=== PATIENT | female | born 1935 | race Caucasian/White ===

== ENCOUNTER 2024-10-10 18:01 | Inpatient (IN) | payer MEDICARE, MEDICAID, SELFPAY ==
--- NOTE | ~2024-10-10 | XR_ITS ---
EXAMINATION: XR CHEST CLINICAL INFORMATION: sob COMPARISON: None available. TECHNIQUE: Frontal view of the chest was obtained. FINDINGS: Pulmonary reticular pattern. No consolidation, pleural effusion or pneumothorax. Cardiomediastinal silhouette demonstrates a tortuous thoracic aorta with calcified plaque. Multilevel thoracic spondylosis. XR/XR chest 1V IMPRESSION: No acute airspace disease. Electronically signed by: Ignacio Rodriguez MD 10/29/2024 12:22 PM EDT
--- NOTE | ~2024-10-10 | US_ITS ---
CLINICAL HISTORY: pain swelling BLE Venous duplex ultrasound bilateral lower extremity Comparison: None Findings: The visualized deep veins are fully compressible with normal Doppler color flow and spectral tracings. No popliteal cyst. IMPRESSION: 1. Negative for bilateral lower extremity deep vein thrombosis. This document has been electronically signed by: Nathaniel Ascencio MD on 10/16/2024 15:08:47
--- NOTE | ~2024-10-10 | US_ITS ---
EXAMINATION: US NONINVASIVE ASSESSMENT OF THE BILATERAL LOWER EXTREMITY WITH ARTERIAL DUPLEX AND ANKLE BRACHIAL INDICES (ABIS) CLINICAL INFORMATION: Bilateral lower extremity pain with ambulation. Swelling, weak pedal pulses. COMPARISON: None available. TECHNIQUE: Duplex Doppler techniques with waveform analysis and measurement of velocities in the common femoral, profunda femoris, superficial femoral, popliteal and tibial arteries were performed. In addition, ankle pulse volume recordings, ankle pressure measurements and ankle brachial indices were obtained of the bilateral lower extremity arterial system. The study was performed only at rest. FINDINGS: NONINVASIVE ASSESSMENT OF THE ARTERIES OF BILATERAL LOWER EXTREMITIES WITH ABIs: RIGHT LEG: Ankle-brachial index: 1.11 Ankle segmental systolic BP: PT: 161 DP: 161 LEFT LEG: Ankle-brachial index: Could not be calculated, as segmental BP of the DP is greater than 200 systolic. ANKLE PVR WAVEFORMS: Bilaterally biphasic. HERMELINDO Reference: 0.9 - 1.4 = normal - no significant arterial disease 0.7 - 0.89 = mild peripheral arterial disease 0.51 - 0.69 = moderate peripheral arterial disease 0.50 = severe peripheral arterial disease There is mild scattered probably calcific atheromatous plaque. RIGHT FEMORAL RUNOFF VELOCITIES: The right common femoral artery measures 103 cm/s and triphasic. The right profunda femoral artery is 33 cm/s and is biphasic. The right proximal superficial femoral artery measures 82 cm/s and biphasic. The right mid superficial femoral artery is 66 cm/s and biphasic. The right distal right superficial femoral artery measures 55 cm/s and is biphasic. The right popliteal velocity measures 71 cm/s and is biphasic. The right posterior tibial artery velocity measures 116 cm/s and is triphasic. LEFT FEMORAL RUNOFF VELOCITIES: The left common femoral artery measures 106 cm/s and biphasic. The left profunda femoral artery is 60 cm/s and is biphasic. The left proximal superficial femoral artery measures 102 cm/s and biphasic. The left mid superficial femoral artery is 73 cm/s and triphasic. The left distal right superficial femoral artery measures 100 cm/s and is triphasic. The left popliteal velocity measures 111 cm/s and is triphasic. The left posterior tibial artery velocity measures 57 cm/s and is biphasic. US/US arterial duplex BI w/ HERMELINDO IMPRESSION: 1. Normal right leg ankle brachial index. The left cannot be calculated as segmental BP of the DP is greater than 200 systolic. 2. Scattered mild calcified atherosclerotic disease is present. There is likely mild arterial vascular disease in the left greater than right lower extremities. 3. Biphasic waveforms in the left RECORDS CUSTODIAN, suggesting possible more proximal disease. 4. No criteria for flow-limiting stenosis identified in either lower extremity. See above for details. Electronically signed by: Sriram Calloway MD 10/18/2024 09:52 AM EDT
--- NOTE | ~2024-10-10 | CT_ITS ---
EXAMINATION: CT ABDOMEN PELVIS WITHOUT IV CONTRAST HISTORY: R flank pain, eval for nephrolithiasis COMPARISON: There are no prior studies for comparison. TECHNIQUE: CT scan of the abdomen and pelvis was performed without contrast using standard departmental protocol. Coronal and sagittal reformatted images were generated and reviewed. Oral contrast material was not administered per department protocol. This CT exam was performed with one or more of the following dose reduction techniques: automated exposure control, adjustment of the mA and/or kV according to patient size, use of iterative reconstruction technique. DLP: 448 mGy-cm FINDINGS: LOWER CHEST: The visualized lung bases are clear. There is no pleural effusion. CARDIOVASCULATURE: The heart is normal in size. There is no pericardial effusion. LIVER: The liver is normal in size and contour. There is a 1.6 cm probable cyst in the left lobe. GALLBLADDER / BILE DUCTS: The gallbladder is unremarkable. There is no intra or extrahepatic biliary ductal dilatation. SPLEEN: The spleen is normal in size and has an unremarkable unenhanced appearance. PANCREAS: The pancreas has an unremarkable unenhanced appearance. ADRENAL GLANDS: Unremarkable. KIDNEYS/RETROPERITONEUM: No renal or ureteral calculi are identified. There is no hydronephrosis or hydroureter. LYMPH NODES: No retroperitoneal lymphadenopathy is identified in the abdomen or pelvis. VASCULATURE: The abdominal aorta demonstrates atherosclerotic calcification, but is normal in caliber. MESENTERY/PERITONEUM: No free fluid. No masses. There is no free intraperitoneal gas. STOMACH: There is a small hiatal hernia. Debris is noted in the remainder of the stomach. SMALL BOWEL: The small bowel is normal in caliber. COLON: The colon is unremarkable. APPENDIX: Normal. URINARY BLADDER/PELVIC ORGANS: The urinary bladder is collapsed, limiting evaluation. The uterus has an unremarkable unenhanced appearance. BONES / SOFT TISSUES: There is a small fat-containing umbilical hernia. There is degenerative disc disease of the spine. CT/CT abdomen pelvis wo IV con IMPRESSION: 1. No evidence of nephrolithiasis or ureteral obstruction. 2. Small hiatal hernia. Small fat-containing umbilical hernia. Electronically signed by: Seun Robles MD 10/21/2024 03:42 PM EDT
--- NOTE | ~2024-10-10 | XR_ITS ---
EXAMINATION: XR KNEE 3 VIEWS RIGHT HISTORY: pain posterior knee COMPARISON: There are no prior studies available for comparison. FINDINGS: Three views of the right knee are submitted. Osseous mineralization is normal. There is no fracture or dislocation. 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 There is a probable 3 mm loose body in the joint space. There is a small joint effusion. XR/XR knee RT 3V IMPRESSION: 1. Small joint effusion. Probable 3 mm loose body. 2. 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 Electronically signed by: Seun Robles MD 10/16/2024 01:12 PM EDT
[2024-10-10 19:16] VITALS: BP 181/91; PULSE 92; RESP 16; TEMP 37.1; O2SAT 93
--- OUTSIDE RECORDS SUMMARY | 2024-10-10 19:46 | XMS_ITS | Data Portability ---
Author Organization [place] [facility], [facility] Address [address] [place] [address] Care Team Providers Care Cellars Supervisor Name Role Phone LATONIA CHAVEZ Referring Provider Assessment Encounter Date Assessment Date Assessment LastModified by Organization Details LastModified Time 04/23/2024 04/23/2024 Discussed B12, will consider supplementing. Increase losartan and RTC in 1 month for BP review. Unclear if she has been taking bumex; she does have bilateral peripheral edema, declines compression stockings/elev ation. Reviewed TTE which was overall normal. atressor Not available 04/23/2024 12:59:02 05/30/2024 05/30/2024 BP remains elevated in clinic today. Unclear if patient taking appropriately, patient appears to be confused if she is taking Losartan, and at what dose. She says is taking HTN medication BID so concern she may only be taking clonidine still . Son will review pills at home to see if patient has been taking losartan and contact clinic. Would like to know if patient taking as prescribed prior to modifying dosing. Recommend pill organizer and son to help if possible to ensure taking appropriately. Follow up in 1 month. Not available 05/30/2024 13:26:42 07/17/2024 07/17/2024 Patient stable. Medications and labs reviewed. She presents with right lower extremity edema, erythema for the past week, treat with cephalexin 500 mg t.i.d. for 14 days. [email or web address] Not available 07/17/2024 15:02:57 08/15/2024 08/15/2024 Patient stable. She presents with bilateral lower extremity erythema. refer to dermatology. She has been treated with cephalexin and doxycycline by urgent care. She developed a rash with doxycyline and was also treated with prednisone 3 days through urgent care. repeat medrol dose pack, increase bumetanide to 2mg daily. Follow up in one month, consider referral to lymphedema clinic. [email or web address] Not available 08/15/2024 15:11:37 09/19/2024 09/19/2024 Patient stable. She was recently in psychiatric rehab for depression, insomnia. She was prescribed trazodone 50 mg and risperidone 1.5 mg at bedtime. A1C is 6.0, LDL elevated 110, cholesterol 185, triglyceride 83, HDL 60. she will follow up next month, repeat labs. [email or web address] Not available 09/19/2024 15:01:21 Plan of Treatment Reminders Order Date Submit Date Provider Last Modified By Organization Details Last Modified Time Details Appointments COMPLETE PHYSICAL EXAM 2024 01:15P Oscar CRUZ MD Not available Not available Not available Lab CMP, serum or plasma 2023 025 [facility], [address] [place] [address], [phone], 08/23/2024 03:02:15 CBC 2023 025 [facility], [address] [place] [address], [id number], 08/23/2024 03:02:15 lipid panel, serum 2023 025 [facility], [address] [place] [address], [phone], 08/23/2024 03:02:16 TSH, serum or plasma 2023 025 [facility], [address] [place] [address], [id number], 08/23/2024 03:02:17 BMP, serum or plasma 2023 024 [facility], [address] [place] [address], [id number], 05/28/2024 02:39:12 Referral dermatolo gist referral - bilateral lower extremity erythema, mild edema, has been treated with abx therapy, patients family prefer she see dermatolo gy 2024 025 BARB Soto MD, [address], [place], [address], 08/15/2024 15:30:34 Procedures None recorded. Surgeries None recorded. Imaging None recorded. Medication Orders trazodone 50 mg tablet 2024 025 [facility] [place] [facility][id number], [address] , [place], [place], [phone], 09/19/2024 15:01:32 risperido ne 1 mg tablet 2024 025 [facility] #[id number], [address] [place] [address], [id number], 09/19/2024 15:01:29 risperido ne 0.5 mg tablet 2024 025 [facility] #[id number], [address] , [place], [place], [phone], 09/19/2024 15:01:30 bumetanid e 2 mg tablet [email or web address] [place] [address] [facility] [place] [facility], [address] , [place], [place], [phone], 09/19/2024 14:53:32 Medrol (Baldo) 4 mg tablets in a dose pack 2024 025 [facility] [place] [facility] #[id number], [address] [place] [address], [id number], 08/15/2024 15:11:39 bumetanid e 1 mg tablet 2023 025 [facility] Not available 08/15/2024 15:12:14 cephalexi n 500 mg capsule 2023 025 SHAHANA Not available 08/15/2024 15:04:43 zolpidem 10 mg tablet 2023 024 SHAHANA Not available 04/23/2024 12:05:40 omeprazol e 40 mg capsule,d elayed release 2023 024 SHAHANA Not available 04/23/2024 12:05:33 clonidine HCl 0.1 mg tablet 2023 024 SHAHANA Not available 04/23/2024 12:05:36 losartan 100 mg tablet 2023 024 Not available 09/19/2024 14:53:39 Patient TargetsNo targets recorded. Patient Instructions Encounter Date Encounter Id Patient Instructions Last Modified By Organization Details Last Modified Time 04/23/2024 [id number] gastroesophageal reflux disease (GERD): care instructions atressor Not available 04/23/2024 12:05:22 high blood press ure: care instructions atressor Not available 04/23/2024 12:05:22 learning about h igh blood pressure atressor Not available 04/23/2024 12:05:22 05/30/2024 [id number] goiter: care instructions Not available 05/30/2024 13:26:43 high blood press ure: care instructions Not available 05/30/2024 13:26:43 learning about h igh blood pressure Not available 05/30/2024 13:26:43 07/17/2024 [id number] insomnia: care instructions [email or web address] Not available 07/17/2024 15:06:33 cellulitis: care instructions [email or web address] Not available 07/17/2024 15:06:33 high blood press ure: care instructions [email or web address] Not available 07/17/2024 15:06:34 learning about h igh blood pressure [email or web address] Not available 07/17/2024 15:06:33 08/15/2024 [id number] leg and ankle ed diana: care instructions [email or web address] Not available 08/15/2024 15:11:32 high blood press ure: care instructions [email or web address] Not available 08/15/2024 15:11:32 learning about h igh blood pressure [email or web address] Not available 08/15/2024 15:11:32 Eczema: Care Instructions [email or web address] Not available 08/15/2024 15:11:32 09/19/2024 [id number] prediabetes: car e instructions [email or web address] Not available 09/19/2024 15:01:23 goiter: care instructions [email or web address] Not available 09/19/2024 15:01:24 insomnia: care instructions [email or web address] Not available 09/19/2024 15:01:24 gastroesophageal reflux disease (GERD): care instructions [email or web address] Not available 09/19/2024 15:01:24 high blood press ure: care instructions [email or web address] Not available 09/19/2024 15:01:24 learning about h igh blood pressure [email or web address] Not available 09/19/2024 15:01:23 Reason for Referral Design Technician Referral for A topic dermatitis bilateral lower extremity erythema, mild edema, has been treated with abx therapy, patients family prefer she see dermatology Referring Physician: Nidia Rosa, Nurse Practitioner- Residential [employer], Encounter Date: 08/15/2024 Results Created Date Observation Date Name Description Value Unit Range Abnormal Flag Note LastModifiedBy Organization Detail LastModifiedTime 03/25/20 24 03/18/2024 , echo ardio gram No observ ation record ed. [facility] [address], [place], [address], 03/25/2024 18:03:34 Result Notes None recorded. Problems Name Problem SNOMED Code Status Onset Date Resolution Date Notes Provider Name and Address Organization Details Recorded Time Mixed hyperlipide cristine 735189034 Active Kalyn Haroon dennis, [place] [facility] 3 13:34:18 Essential hypertensio n 84541663 Completed 01/30/2018 Latonia Chavez MD [address] [place] [address],[facility], [place], [address], [facility] 8 12:21:30 Cough 60867691 Completed 07/20/2017 Latonia Chavez MD [address] [place] [address],[facility], [place], [address], [place] [facility], 7 11:39:37 Gastroesoph ageal reflux disease 178711153 Active [place] [facility] MD, 3 13:34:18 Disorder of thyroid gland 41876800 Completed 07/20/2017 Latonia Chavez MD [address] [place] [address],[facility], [place], [address], [place] [facility], 7 11:39:16 Partial thickness burn of hand 69561598 Completed 07/20/2017 Latonia Chavez MD [address] [place] [address],[facility], [place], [address], [place] [facility] 7 11:39:41 Benign essential hypertensio n 9932398 Active [facility] 3 13:34:18 Insomnia 712467176 Active [place], 3 13:34:18 Shoulder joint pain 927379411 Completed 07/20/2017 Latonia Chavez MD [address] [place] [address],[facility], [place], [address], [place] [facility], 7 11:39:58 Knee pain Completed 07/20/2017 Latonia Chavez MD [address] [place] [address],[facility], [place], [address], [place] [facility] 7 11:39:31 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 526218725 Active [place] Cerna MD, 3 13:34:18 Hyperlipide cristine 05187353 Completed 07/20/2017 Latonia Chavez MD [address] [place] [address],[facility], [place], [address], [facility] 7 11:39:48 Goiter 4741343 Active [facility] 3 13:34:18 Coronary atheroscler osis 531492007 Active [facility] 3 13:34:18 Bronchitis 12694849 Completed 07/20/2017 Latonia Chavez MD [address] [place] [address],[facility], [place], [address], [facility] 3 13:43:34 Acute bronchitis 99324524 Completed 07/20/2017 Latonia Chavez MD [address] [place] [address],[facility], [place], [address], [facility] 7 11:39:12 Interstitia l emphysema of lung 40530565 Completed 07/20/2017 Latonia Chavez MD [address] [place] [address],[facility], [place], [address], [facility] 7 11:39:52 Menopausal and postmenopau francisco disorders 124976868 Completed 07/20/2017 Latonia Chavez MD [address] [place] [address],[facility], [place], [address], [facility] 7 11:39:23 Osteopenia 332308286 Active 2022 [facility] 3 13:34:18 Bronchitis 44613023 Active 2022 [facility] 3 13:34:18 Notes:Some problems listed i n Document: #[id number] could not be added to this patient's chart. Please review this document and add these problems to the patient's chart manually as needed. Problem Notes None recorded. Procedures Surgical History Date Name Laterality Status Provider Name and Address Organization Details Recorded Time 11/24/2014 Get Up & Go Test completed Latonia Chavez MD [address] [place] [address],[address], [place], [address], [place] [facility] 11/24/2014 11:49:08 04/28/2014 Get Up & Go Test completed Latonia Chavez MD [address] [place] [address],[address], [place], [address], [place] [facility] 04/28/2014 11:40:18 11/01/2013 Get Up & Go Test completed Latonia Chavez MD [address] [place] [address],[address], [place], [address], [place] [facility] 11/01/2013 11:07:40 Imaging Results Imaging Date Name Status LastModified by Organization Details LastModified Time 03/18/2024 US, echocardiogram active [facility] [address], [place], [address], 03/25/2024 18:03:34 Procedure Notes None recorded. Medical Equipment None Reported. Allergies No known drug allergies Medications Name Sig Start Date Stop Date Status Note LastModified by Organization Details LastModified Time Prescript ion - Renewal 06/10 completed zilpidem Not Available Not Available Not Available Prescript ion - New 06/10 completed ZOLPIDEM Not Available Not Available Not Available losartan 50 mg tablet TAKE 1 TABLET BY MOUTH DAILY FOR HYPERTEN JORGE active Not Available Not Available No t Available nifedipin e ER 30 mg tablet,ex tended release 24 hr Take 1 tablet every day by oral route. 12/13 completed Not Available Not Available Not Available amoxicill in 500 mg capsule 08/02 completed Not Available Not Available Not Available haloperid ol 0.5 mg tablet Take 1 tablet every day by oral route. 05/30 completed Not Available Not Available Not Available silver sulfadiaz ine 1 % topical cream apply to affected area once daily for 14 days IC SILVADEN E active Not Available Not Available No t Available potassium chloride ER 10 mEq capsule,e xtended release 05/30 completed Not Available Not Available Not Available clonidine HCl 0.1 mg tablet TAKE 1 TABLET BY MOUTH DAILY FOR HYPERTEN JORGE active Not Available Not Available No t Available prednison e 10 mg tablet 05/30 completed Not Available Not Available Not Available doxycycli ne hyclate 100 mg capsule 08/15 completed Not Available Not Available Not Available bumetanid e 2 mg tablet TAKE 1 TABLET BY MOUTH EVERY DAY 09/19 completed Not Available Not Available Not Available trazodone 50 mg tablet Take 1 tablet every day by oral route. 2024 active Not Available Not Available Not Avai lable triamcino lone acetonide 0.5 % topical cream APPLY THIN LAYER TOPICALL Y TO THE AFFECTED AREA TWICE DAILY active Not Available Not Available No t Available Pneumovax -23 25 mcg/0.5 mL injection solution inject 0.5 millilit er intramus cularly 01/11 completed Not Available Not Available Not Available azithromy denise 250 mg tablet Take 2 tablets (500 mg) by oral route once daily for 1 day then 1 tablet (250 mg) by oral route once daily for 4 days 02/02 completed Not Available Not Available Not Available metoprolo l succinate ER 50 mg tablet,ex tended release 24 hr TAKE 1 TABLET BY MOUTH DAILY FOR HYPERTEN JORGE active Not Available Not Available No t Available hydrocodo ne 5 mg-acetam inophen 325 mg tablet 05/30 completed Not Available Not Available Not Available Medrol (Baldo) 4 mg tablets in a dose pack Take as directed 2024 active Not Available Not Available Not Avai lable prednison e 20 mg tablet 08/15 completed Not Available Not Available Not Available felodipin e ER 5 mg tablet,ex tended release 24 hr take 1 tablet by mouth once daily 05/30 completed Not Available Not Available Not Available alendrona te 70 mg tablet TAKE 1 TABLET BY MOUTH EVERY WEEK 01/11 completed Not Available Not Available Not Available Beta-Stacy 0.1 % topical cream APPLY A THIN LAYER TO THE AFFECTED AREA(S) BY TOPICAL ROUTE ONCE DAILY 12/09 completed Not Available Not Available Not Available clonidine HCl 0.3 mg tablet Take 1 tablet twice a day by oral route. active Not Available Not Available No t Available olanzapin e 5 mg tablet 06/10 completed Not Available Not Available Not Available clobetaso l 0.05 % topical cream apply to affected area once daily 10/27 completed Not Available Not Available Not Available acetamino phen 300 mg-codein e 30 mg tablet active Not Available Not Available Not Available amlodipin e 5 mg tablet TAKE 1 TABLET BY MOUTH EVERY DAY 12/13 completed Not Available Not Available Not Available olanzapin e 2.5 mg tablet Take 1 tablet every day by oral route. 06/10 completed Not Available Not Available Not Available omeprazol e 40 mg capsule,d elayed release TAKE 1 CAPSULE BY MOUTH DAILY FOR GERD active Not Available Not Available No t Available tramadol 50 mg tablet 12/09 completed Not Available Not Available Not Available acetamino phen 500 mg tablet TAKE 1 CAPLET BY MOUTH 3 TO 4 TIMES DAILY NEEDED FOR PAIN FOR UP TO 5 DAYS active Not Available Not Available No t Available amoxicill in 500 mg tablet TAKE 1 TABLET BY MOUTH EVERY 8 HOURS FOR 7 DAYS 10/11 completed Not Available Not Available Not Available nystatin- triamcino lone 100,000 unit/gram -0.1 % topical ointment apply to affected area twice a day 11/12 completed Not Available Not Available Not Available Celebrex 200 mg capsule 12/09 completed Not Available Not Available Not Available potassium chloride ER 20 mEq tablet,ex tended release(p art/cryst ) take 1 tablet by mouth once daily 05/30 completed Not Available Not Available Not Available famotidin e 20 mg tablet active Not Available Not Available Not Available triamcino lone acetonide 0.025 % topical cream APPLY THIN LAYER TOPICALL Y TO THE AFFECTED AREA TWICE DAILY active Not Available Not Available No t Available nifedipin e ER 60 mg tablet,ex tended release 24 hr TAKE 1 TABLET BY MOUTH EVERY DAY 10/17 completed Not Available Not Available Not Available cephalexi n 500 mg capsule TAKE 1 CAPSULE BY MOUTH THREE TIMES DAILY FOR 14 DAYS 08/15 completed Not Available Not Available Not Available diphenhyd ramine 25 mg capsule TAKE 2 CAPSULES (50MG) BY MOUTH EVERY 6 HOURS NEEDED FOR 3 DAY... (REFER TO PRESCRIP TION NOTES). 10/27 completed Not Available Not Available Not Available nystatin 100,000 unit/gram topical cream APPLY TOPICALL Y TO THE AFFECTED AREA TWICE DAILY 10/17 completed Not Available Not Available Not Available ranitidin e 150 mg tablet 05/30 completed Not Available Not Available Not Available captopril 50 mg-hydroc hlorothia zide 25 mg tablet take 1 tablet by mouth twice a day 08/24 completed Not Available Not Available Not Available captopril 50 mg tablet Take 1 tablet twice a day by oral route. 2010 active Not Available Not Available Not Avai lable nitroglyc compa 0.4 mg sublingua l tablet PLACE 1 TABLET UNDER THE TONGUE NEEDEDQ 10/26 completed Not Available Not Available Not Available omeprazol e 20 mg capsule,d elayed release TAKE 1 CAPSULE BY MOUTH ONCE DAILY IC PRILOSEC 11/12 completed Not Available Not Available Not Available diclofena c sodium 75 mg tablet,de layed release take 1 tablet by mouth twice a day 12/09 completed Not Available Not Available Not Available bumetanid e 1 mg tablet TAKE 1 TABLET BY MOUTH DAILY FOR SWELLING active Not Available Not Available No t Available mupirocin 2 % topical ointment active Not Available Not Available Not Available zolpidem 5 mg tablet take 1 tablet by mouth at bedtime for sleep 12/09 completed Not Available Not Available Not Available furosemid e 20 mg tablet Take 1 tablet(s ) every day by oral route. 2021 active Not Available Not Available Not Avai lable clobetaso l 0.05 % topical ointment APPLY A THIN LAYER TO THE AFFECTED TOPICALL Y TWO TIMES DAILY 05/17 completed Not Available Not Available Not Available levofloxa denies 500 mg tablet Take 1 tablet every 24 hours by oral route for 7 days. 10/27 completed Not Available Not Available Not Available zolpidem 10 mg tablet TAKE 1 TABLET BY MOUTH AT BEDTIME NEEDED active Not Available Not Available No t Available Naprosyn 500 mg tablet Take 1 tablet twice a day by oral route. 2011 active Not Available Not Available Not Avai lable betametha sone dipropion ate 0.05 % topical ointment APPLY A THIN LAYER TO THE AFFECTED AREA TOPICALL Y ONCE DAILY 11/12 completed Not Available Not Available Not Available nifedipin e ER 60 mg tablet,ex tended release TAKE 1 TABLET BY MOUTH EVERY DAY active Not Available Not Available No t Available losartan 100 mg tablet TAKE 1 TABLET BY MOUTH EVERY DAY 09/19 completed Not Available Not Available Not Available risperido ne 1 mg tablet Take 1 tablet every day by oral route. 2024 active Not Available Not Available Not Avai lable Diovan 160 mg tablet active Not Available Not Available Not Available atenolol 50 mg tablet take 1 tablet by mouth once daily 06/10 completed Not Available Not Available Not Available risperido ne 0.5 mg tablet Take 1 tablet every day by oral route. 2024 active Not Available Not Available Not Avai lable Flexeril 10 mg tablet Take 1 tablet every day by oral route at bedtime for 30 days. 2010 active Not Available Not Available Not Avai lable nitrofura ntoin monohydra te/macroc rystals 100 mg capsule take 1 capsule by mouth every 12 hours 10/27 completed Not Available Not Available Not Available [employer] Allergy 25 mg tablet TAKE 1 TABLET BY MOUTH EVERY 6 HOURS NEEDED FOR ITCHING FOR UP TO 5 DAYS active Not Available Not Available No t Available chlorhexi dine gluconate 0.12 % mouthwash 10/11 completed Not Available Not Available Not Available Aspir-81 06/10 completed Not Available Not Available Not Available Prevnar 13 (PF) 0.5 mL intramusc ular syringe inject 0.5 millilit er intramus cularly 01/11 completed Not Available Not Available Not Available Fluvirin 2298-7179 (PF) 45 mcg (15 mcg x3)/0.5 mL intramusc ular syringe inject 0.5 millilit er intramus cularly 10/27 completed Not Available Not Available Not Available Fluzone High-Dose 5722-0794 (PF) 180 mcg/0.5 mL intramusc ular syringe inject 0.5 millilit er intramus cularly 07/20 completed Not Available Not Available Not Available Fluzone High-Dose Quad (PF) 240 mcg/0.7 mL IM syringe ADM 0.7ML IM UTD 10/11 completed Not Available Not Available Not Available Vitals Date Recorded Body height Body mass index (BMI) Body weight Heart rate Provider Name and Address Organization Details Last Updated DateTime 04/23/2024 160.02 cm 29.9 kg/m2 68504.11 g 65 /min [facility] 04/23/2024 11:25:11 Date Recorded Systolic blood pressure Diastolic blood pressure Provider Name and Address Organization Details Last Updated DateTime 04/23/2024 168 mm[Hg] 95 mm[Hg] ANGEL LUIS CRUZ MD [address] [place] [address], [phone], [place] [facility] 04/23/2024 11:57:22 Date Recorded Body height Body mass index (BMI) Body weight Heart rate Body mass index (BMI) Systolic blood pressure Diastolic blood pressure Systolic blood pressure Diastolic blood pressure Provider Name and Address Organization Details Last Updated DateTime 4 160.02 cm 29.9 kg/m2 60606.1 1 g 74 /min 29.9 kg/m2 188 mm[Hg] 91 mm[Hg] 152 mm[Hg] 88 mm[Hg] [facility] 4 13:29:06 Date Recorded Body height Body mass index (BMI) Body weight Heart rate Systolic blood pressure Diastolic blood pressure Provider Name and Address Organization Details Last Updated DateTime 4 160.02 cm 28.9 kg/m2 73373.5 6 g 93 /min 123 mm[Hg] 67 mm[Hg] Ermelinda [facility] 4 14:50:21 Date Recorded Body height Body mass index (BMI) Body weight Heart rate Systolic blood pressure Diastolic blood pressure Provider Name and Address Organization Details Last Updated DateTime 5 160.02 cm 28.5 kg/m2 81172.3 7 g 83 /min 160 mm[Hg] 80 mm[Hg] Adina [facility] 5 15:20:52 Date Recorded Body height Body mass index (BMI) Body weight Heart rate Systolic blood pressure Diastolic blood pressure Provider Name and Address Organization Details Last Updated DateTime 5 160.02 cm 30.3 kg/m2 99493.3 g 77 /min 137 mm[Hg] 64 mm[Hg] [facility] 5 14:45:46 Social History Question Answer Notes LastModified by Organizat ion Details LastModified Time Tobacco Smoking Status Never Smoker Not Available [facility] 06/09/2020 03:30:59 What Is Your Level Of Alcohol Consumption? Occasional [id number] Information not available 06/09/2020 Are You Blind Or Do You Have Difficulty Seeing? No Information n ot available 11/22/2022 In The 14 Days Before Symptom Onset, Have You Had Close Contact With A Laboratory-confirm ed COVID-19 While That Case Was Ill? No Information n ot available 11/22/2022 In The 14 Days Before Symptom Onset, Have You Had Close Contact With A Person Who Is Under Investigation For COVID-19 While That Person Was Ill? No Information not available 11/22/2022 Have You Been To An Area Known To Be High Risk For COVID-19? No Information not available 11/22/2022 Are You Deaf Or Do You Have Serious Difficulty Hearing? No Information not available 11/22/2022 What Is Your Occupation? Retired [id number] Information not available 06/09/2020 Marital Status Information not available 06/23/2011 What Was The Date Of Your Most Recent Tobacco Screening? 11/12/2018 [id number] Information not available 06/09/2020 How Many Children Do You Have? 2 [id number] Information not available 06/09/2020 Sex: Unknown Functional Status Question Answer Note LastModified by Organizat [employer] Details LastModified Time Do you have difficulty walking or climbing stairs? No Information not available 11/22/2022 Do you have transportation difficulties? No Information not available 11/22/2022 Do you have difficulty doing errands alone? No Information not available 11/22/2022 Are you able to care for yourself? Yes Information not available 11/22/2022 Do you have difficulty dressing or bathing? No Information not available 11/22/2022 What is your exercise level? None [id number] Information not available 06/09/2020 Mental Status Question Answer Note LastModified by Organization D etails LastModified Time Do you have difficulty concentrating, remembering or making decisions? No Information no t available 11/22/2022 Family History Relationship Description Onset Age of this Age Resolved Age Notes LastModified by Organization Details LastModified Time Mother Problem 93 Old Age mriad Not available 11/24/2014 11:44:37 Father Problem 67 [place] mriad Not available 11:44:37 Medical History Condition Response Osteoarthritis Y HTN Y CAD Y Hyperlipidemia Y Gynecological History Statement/Question Response Date of last PAP 2013 Date of Last Mammogram Refuses Date of Last Colonoscopy REFUSES Obstetrics History GPAL:G 0 P 0 0 0 0 Immunizations Vaccine Type Date Status Note Provider Nam e and Address Organization Details Recorded Time Influenza A monovalent (H5N1), ADJUVANTED-2012 5 completed Not Available [facility] 03/30/2022 15:11:45 Influenza A monovalent (H5N1), ADJUVANTED-2012 5 completed Not Available [facility] 03/30/2022 15:11:45 Influenza A monovalent (H5N1), ADJUVANTED-2012 5 completed Not Available [facility] 03/30/2022 15:11:45 Pneumococcal conjugate PCV 13 5 completed Not Available [facility] 03/30/2022 15:11:45 Past Encounters Encounter ID Performer Location Encounter Start Date Encounter Closed Date Diagnosis/Indication Diagnosis SNOMED-CT Code Diagnosis ICD10 Code Diagnosis Note [id number] LATONIA CHAVEZ MD[facility] [address] [place] [address] 12/21/2010 13:06:01 12/21/2010 13:47:17 [id number] LATONIA CHAVEZ MD,[facility] [address] [place] [id number] 01/24/2011 11:17:09 01/24/2011 12:17:49 [id number] LATONIA CHAVEZ MD,P[facility] [address] [place] [id number] 09/27/2011 11:11:40 09/27/2011 12:05:54 [id number] Hanny CHAVEZ MD,P[facility] [address] [place] [address] 04/23/2012 09:13:14 04/23/2012 09:49:24 [id number] MD LATONIA Fernandez MD,[facility] [address] [place] [id number] 06/04/2012 12:55:03 06/04/2012 13:14:02 [id number] Hanny CHAVEZ MD,[facility] [address] [place] [address] 06/08/2012 09:32:09 06/08/2012 10:07:41 [id number] Debra CHAVEZ MD,P.C [address] [place] [address] 10/19/2012 09:13:21 10/19/2012 09:36:02 [id number] MD LATONIA Fernandez MD,[facility] [address] [place] [address] 05/06/2013 09:59:28 05/06/2013 10:37:35 Benign essential hypertension 8026744 Insomnia 152500416 Interstiti al emphysema of lung 52899705 Mixed hyperlipidemia 939817559 Gastroesop hageal reflux disease 441902237 [id number] Hanny CHAVEZ MD,P.[facility] [address] [place] [address] 11/01/2013 09:58:38 11/01/2013 11:12:28 Mixed hyperlipidemia 726343828 Gastroesop hageal reflux disease 737820585 Benign ess ential hypertension 5685131 Insomnia 285472026 Knee pain 14481581 Degenerati ve joint disease involving multiple joints 935499916 Coronary atherosclerosis 975833977 [id number] Hanny CHAVEZ MD,P[facility] [address] [place] [address] 04/28/2014 10:25:15 04/28/2014 11:49:20 Mixed hyperlipidemia 549434993 Gastroesop hageal reflux disease 905362731 Cough 60101340 Benign ess ential hypertension 5461173 Insomnia 396338835 Shoulder joint pain 662666470 Knee pain 74551747 Degenerati ve joint disease involving multiple joints 769579470 Goiter 2639121 Coronary atherosclerosis 916301138 Interstiti al emphysema of lung 21115495 [id number] Hanny CHAVEZ MD,P.C [address] [place] [address] 11/24/2014 11:37:06 11/24/2014 11:54:19 Mixed hyperlipidemia 869071561 Acquired hypothyroidism 265101077 Benign ess ential hypertension 4376928 Coronary atherosclerosis 554616411 Degenerati ve joint disease involving multiple joints 165357349 Gastroesop hageal reflux disease 605360570 Interstiti al emphysema of lung 19991612 [id number] MD LATONIA Fernandez MD,[facility] [address] [place] [address] 11/30/2015 11:04:26 11/30/2015 11:30:48 Mixed hyperlipidemia 436998905 E78.2 Acquired hypothyroidism 299495136 E03.9 Benign ess ential hypertension 8433394 I10 Degenerati ve joint disease involving multiple joints 794487573 M15.9 Gastroesop hageal reflux disease 017893499 K21.9 Chest pain 12103490 R07. 9 [id number] MD LATONIA Fernandez MD,P.C [address] [place] [address] 05/30/2016 11:09:41 05/30/2016 11:44:26 Acquired hypothyroidism 312557678 E03.9 Benign ess ential hypertension 2035189 I10 Degenerati ve joint disease involving multiple joints 206096317 M15.9 Gastroesop hageal reflux disease 284983170 K21.9 Mixed hyperlipidemia 267 443989 E78.2 Coronary atherosclerosis 874094098 I25.10 Hip pain 03840852 M25.55 2 [id number] MD LATONIA Fernandez MD,P[facility]C [address] [place] [address] 07/28/2016 08:38:55 07/28/2016 09:13:57 Benign essential hypertension 7550270 I10 Fatigue 77563081 R53.83 Allergic r eaction to drug 424513102 T50.905A [id number] MD LATONIA Fernandez MD,P[facility]C [address] [place] [address] 08/16/2016 14:24:47 08/16/2016 14:55:56 Cellulitis of lower limb 045216715 L03.116 Swelling of lower leg 44 9715715 R22.42 [id number] MD LATONIA Fernandez MD,P[facility] [address] [place] [address] 10/27/2016 15:23:54 10/27/2016 15:50:05 Intermittent claudication 78696135 I73.9 Knee pain 68691563 M25.5 69 [id number] MD LATONIA Fernandez MD,P[facility] [address] [place] [address] 12/09/2016 09:35:26 12/09/2016 10:25:18 Acquired hypothyroidism 999797748 E03.9 Benign ess ential hypertension 9744836 I10 Degenerati ve joint disease involving multiple joints 169585415 M15.9 Gastroesop hageal reflux disease 573092215 K21.9 Mixed hyperlipidemia 267 588901 E78.2 Knee pain 08449787 M25.5 69 Coronary atherosclerosis 331728856 I25.10 [id number] MD LATONIA Fernandez MD,P.C [address] [place] [id number] 07/20/2017 11:18:15 07/20/2017 11:49:05 Acquired hypothyroidism 482918492 E03.9 Benign ess ential hypertension 2689557 I10 Degenerati ve joint disease involving multiple joints 157922077 M15.9 Gastroesop hageal reflux disease 407394178 K21.9 Coronary atherosclerosis 473166433 I25.10 Essential hypertension 87662879 I10 Insomnia 097464395 G47.0 0 Eruption 730598777 R21 [id number] MD LATONIA Fernandez MD,[facility] [address] [place] [address] 08/24/2017 10:05:07 08/24/2017 10:50:42 Benign essential hypertension 1527908 I10 [id number] MD LATONIA Fernandez MD[facility] [address] [place] [place] [address] 01/30/2018 11:04:31 01/30/2018 12:31:35 Mixed hyperlipidemia 709085909 E78.2 Menopausal and postmenopausal disorders 480679891 N95.1 N95.8 Acquired hypothyroidism 325933969 E03.9 Benign ess ential hypertension 5175573 I10 Insomnia 336262864 G47.0 0 Degenerati ve joint disease involving multiple joints 466007977 M15.9 Gastroesop hageal reflux disease 679704347 K21.9 Coronary atherosclerosis 055098529 I25.10 Edema of l ower extremity 377870316 R60.0 [id number] MD LATONIA Fernandez MD,[facility]C [address] [place] [address] 08/02/2018 11:14:52 08/02/2018 11:58:56 Acquired hypothyroidism 092859861 E03.9 Benign ess ential hypertension 3205065 I10 Insomnia 692325917 G47.0 0 Degenerati ve joint disease involving multiple joints 085989244 M15.9 Gastroesop hageal reflux disease 426207055 K21.9 Mixed hyperlipidemia 267 505197 E78.2 [id number] MD LATONIA Fernandez MD,P[facility]C [address] [place] [address] 11/12/2018 09:18:46 11/12/2018 09:42:42 Acquired hypothyroidism 319770876 E03.9 Benign ess ential hypertension 4976163 I10 Insomnia 834947995 G47.0 0 Degenerati ve joint disease involving multiple joints 901921514 M15.9 Gastroesop hageal reflux disease 686495741 K21.9 Mixed hyperlipidemia 267 116879 E78.2 Goiter 4462693 E04.9 Coronary atherosclerosis 835400763 I25.10 Psychotic disorder 38686 001 F29 [id number] MD LATONIA Fernandez MD,P[facility] [address] [place] [address] 06/10/2019 11:03:30 06/10/2019 12:12:38 Mixed hyperlipidemia 326452024 E78.2 Acquired hypothyroidism 222523307 E03.9 Benign ess ential hypertension 6648327 I10 Degenerati ve joint disease involving multiple joints 858747256 M15.9 Gastroesop hageal reflux disease 217868802 K21.9 Coronary atherosclerosis 453313395 I25.10 Goiter 0349496 E04.9 [id number] MD LATONIA Fernandez MD,P.C [address] [place] [address] 06/18/2020 14:47:51 06/18/2020 15:32:14 Acquired hypothyroidism 699123264 E03.9 Benign ess ential hypertension 4614423 I10 Coronary atherosclerosis 312636329 I25.10 Gastroesop hageal reflux disease 331199721 K21.9 Goiter 9573140 E04.9 Insomnia 827057280 G47.0 0 Mixed hyperlipidemia 267 002364 E78.2 [id number] MD LATONIA Fernandez MD[facility] [address] [facility] [place] [address] 10/05/2020 14:52:30 10/05/2020 15:40:52 Mixed hyperlipidemia 091212050 E78.2 Screening for malignant neoplasm of cervix 457249757 Z12.4 Acquired hypothyroidism 712833399 E03.9 Benign ess ential hypertension 0341857 I10 Coronary atherosclerosis 420475346 I25.10 Degenerati ve joint disease involving multiple joints 035825747 M15.9 Gastroesop hageal reflux disease 711333454 K21.9 Goiter 2824359 E04.9 Insomnia 698209139 G47.0 0 [id number] MD LATONIA Fernandez [facility] [address] [facility] [place] [address] 10/11/2021 15:33:25 10/11/2021 15:53:03 Mixed hyperlipidemia 209755601 E78.2 Acquired hypothyroidism 659626294 E03.9 Benign ess ential hypertension 1216782 I10 Coronary atherosclerosis 311029985 I25.10 Degenerati ve joint disease involving multiple joints 412373238 M15.9 Gastroesop hageal reflux disease 444205400 K21.9 Goiter 9091785 E04.9 Insomnia 980580185 G47.0 0 [id number] MD LATONIA Fernandez MD,P.C [address] [place] [address] 12/13/2021 13:58:51 12/13/2021 14:13:32 Acquired hypothyroidism 390210881 E03.9 Benign ess ential hypertension 4946681 I10 Coronary atherosclerosis 719288139 I25.10 Degenerati ve joint disease involving multiple joints 446653472 M15.9 Gastroesop hageal reflux disease 343846013 K21.9 Goiter 1325747 E04.9 Mixed hyperlipidemia 267 444362 E78.2 [id number] JESUS Smith MD,P.C [address] [place] [address] 01/11/2022 14:09:00 01/11/2022 15:00:23 Benign essential hypertension 7170472 I10 BP is well controlled today. Edema of l ower extremity 073384459 R60.0 Coronary atherosclerosis 464447488 I25.10 [id number] JESUS CORNELL MD,P.C [address] [place] [address] 05/17/2022 13:31:31 05/17/2022 14:20:36 Acquired hypothyroidism 650954314 E03.9 Benign ess ential hypertension 4368698 I10 Coronary atherosclerosis 488125577 I25.10 Gastroesop hageal reflux disease 039423418 K21.9 Goiter 3472727 E04.9 Mixed hyperlipidemia 267 857457 E78.2 On examina tion - allergic rash 529660813 L23.9 Candidiasis of skin 4988 3006 B37.2 [id number] MD LATONIA Fernandez MD,P.C [address] [place] [address] 10/17/2022 14:58:05 10/17/2022 16:09:05 Mixed hyperlipidemia 959919354 E78.2 Acquired hypothyroidism 225346632 E03.9 Benign ess ential hypertension 2656042 I10 Coronary atherosclerosis 566957679 I25.10 Gastroesop hageal reflux disease 807480375 K21.9 [id number] MD LATONIA Fernandez MD,P.C [address] [place] [address] 11/22/2022 13:35:55 11/22/2022 13:53:43 Bronchitis 78671881 J40 [id number] JESUS TAVAREZ MD,P.C [address] [place] [address] 02/02/2023 13:14:35 02/02/2023 14:12:17 Benign essential hypertension 0167398 I10 Acquired hypothyroidism 234689827 E03.9 Insomnia 924190769 G47.0 0 Degenerati ve joint disease involving multiple joints 659807220 M15.9 Edema of l ower extremity 846312051 R60.0 [id number] HECTOR GUO MD,P.C [address] [place] [address] 10/27/2023 12:53:36 10/27/2023 13:51:15 Acquired hypothyroidism 921407707 E03.9 Benign ess ential hypertension 4022745 I10 Insomnia 692830458 G47.0 0 Coronary atherosclerosis 261901931 I25.10 Goiter 3834372 E04.9 Bronchitis 81681167 J40 Anemia 178120842 D64.9 [id number] MD LATONIA LARSON MD,P.C [address] [place] [address] 04/23/2024 11:12:16 04/23/2024 12:14:21 Benign essential hypertension 9248028 I10 BP elevated, has been out of losartan. Will resume and follow-up in 1 month for potential dose titration Degenerati ve joint disease involving multiple joints 150177765 M15.9 Gastroesop hageal reflux disease 708812338 K21.9 Mixed hyperlipidemia 267 991323 E78.2 Coronary atherosclerosis 992573128 I25.10 Insomnia 066015367 F51.0 1 Edema of l ower extremity 903518105 R60.0 unclear if she has been taking bumetadine . [id number] HECTOR BATISTA MD,P.C [address] [facility] [place] [address] 05/30/2024 13:03:04 05/30/2024 13:30:18 Benign essential hypertension 4658872 I10 Coronary atherosclerosis 006114347 I25.10 Mixed hyperlipidemia 267 897594 E78.2 Goiter 9068615 E04.9 [id number] JESUS CORNELL MD,P.C [address] [facility] [place] [address] 07/17/2024 14:45:46 07/17/2024 15:06:33 Benign essential hypertension 1762261 I10 Degenerati ve joint disease involving multiple joints 728235284 M15.9 Insomnia 164078177 F51.0 1 Mixed hyperlipidemia 267 921857 E78.2 Osteopenia 907462294 M85 .80 Coronary atherosclerosis 314427711 I25.10 Cellulitis 370598892 L03 .90 Edema of l ower extremity 389727172 R60.0 [id number] JESUS CORNELL MD,P.C [address] [facility] [place] [address] 08/15/2024 14:14:05 08/15/2024 15:23:17 Benign essential hypertension 3794053 I10 Coronary atherosclerosis 276207198 I25.10 Degenerati ve joint disease involving multiple joints 340605044 M15.9 Atopic dermatitis 607675 01 L20.9 Edema of l ower extremity 055596212 R60.0 [id number] JESUS CORNELL MD,P.C [address] [facility] [place] [address] 09/19/2024 14:37:35 09/19/2024 16:20:30 Benign essential hypertension 0640998 I10 Insomnia 643338812 F51.0 1 Degenerati ve joint disease involving multiple joints 384619247 M15.9 Gastroesop hageal reflux disease 195310931 K21.9 Coronary atherosclerosis 317805609 I25.10 Goiter 7569571 E04.9 Mixed hyperlipidemia 267 875204 E78.2 Osteopenia 432211037 M85 .80 Anxiety 42645340 F41.9 Impaired f asting glycemia 348022692 R73.01 Health Concerns Section Related Observation LastModified by Organization Detai ls LastModified Time None Recorded Concern Status LastModified by Organization Details LastModified Time None Recorded Advance Directives Directive None Recorded Payers Encounter Date Sequence Insurance Name Policy Number Policy Crow Covered Member ID Crow Member ID Guarantor Name 04/23/2024 2 [place] [facility] Dagmar Ray Pronina [id number] Dagmar Pronina 04/23/2024 1 [place] [employer] Dagmar Ray Pronina [id number] Dagmar Pronina 05/30/2024 2 [place] [facility] Dagmar Ray Pronina [id number] Dagmar Pronina 05/30/2024 1 [place] [employer] Dagmar Ray Pronina [id number] Dagmar Pronina 07/17/2024 2 [place] [facility] Dagmar Ray Pronina [id number] Dagmar Pronina 07/17/2024 1 [place] [employer] Dagmar Ray Pronina [id number] Dagmar Pronina 08/15/2024 2 [place] [facility] Dagmar Ray Pronina [id number] Dagmar Pronina 08/15/2024 1 [place] [employer] Dagmar Ray Pronina [id number] Dagmar Pronina 09/19/2024 2 [place] [facility] Dagmar Ray Pronina [id number] Dagmar Pronina 09/19/2024 1 [place] [employer] Dagmar Ray Pronina [id number] Dagmar Pronina Notes Date Note Type Note Provider Name and Address Organization Details Recorded Time 04/23/2024 text/html 89 yo with hx HTN, CAD, GERD, HLD here for follow-up. Has been out of losartan is only taking clonidine. Patient in for. F/U Here with her son. Here with her son. Needs refills. No acute concerns Reviewed labs ANGEL LUIS CRUZ MD [address] [place] [address],[address], [place], [id number], [place] MD, 04/23/2024 13:00:27 05/30/2024 text/html 89 yo with hx HTN, CAD, GERD, HLD here for follow-up. Denying any acute concerns today. Declines BP monitoring in home. Does state she has increased losartan at last appointment but appears to be some confusion in what she is supposed to be taking. She tells her son who is here at the appointment with her that she takes her BP meds twice a day. Informed that losartan is once daily, unclear if taking increase dose. SHEA BUSTILLOS PA-C [address] [place] [address],[address], [place], [id number], [place] MD, 05/30/2024 13:28:20 07/17/2024 text/html 89 y/o female presents for an follow up visit. She has a history of insomnia, HTN, CAD, DJD, acid reflux, hyperlipidemia, osteopenia. NIDIA ROSA NP [address] [place] [address],[address], [place], [phone], [place] MD, 07/17/2024 15:06:42 08/15/2024 text/html 89 y/o female presents for an follow up visit. She has a history of bilateral lower extremity edema. She has been treated with cephalexin and doxycyline with no relief in redness. NIDIA ROSA NP [address] [place] [address],[address], [place], [id number], [place] MD, 08/15/2024 17:33:13 09/19/2024 text/html 89 y/o female presents for an follow up visit. She has a history of HTN, bronchitis, CAD, DJD, acid reflux, goiter, hyperlipidemia, osteopenia. NIDIA ROSA NP [address] [place] [address],[address] [place], [phone], [place] MD, 09/19/2024 15:02:14 OBGyn Episode No OBEpisode recorded.
--- OUTSIDE RECORDS SUMMARY | 2024-10-10 19:46 | XMS_ITS | Continuity of Care Document ---
Author Organization [facility], [facility] Address [address] [place] [address] Care Team Providers Care Control Panel Assembler Name Role Phone LATONIA CHAVEZ Referring Provider [phone] Assessment Encounter Date Assessment Date Assessment LastModified by Organization Details LastModified Time 09/19/2024 09/19/2024 Patient stable. She was recently in psychiatric rehab for depression, insomnia. She was prescribed trazodone 50 mg and risperidone 1.5 mg at bedtime. A1C is 6.0, LDL elevated 110, cholesterol 185, triglyceride 83, HDL 60. she will follow up next month, repeat labs. [email or web address] Not available 09/19/2024 15:01:21 Plan of Treatment Reminders Order Date Submit Date Provider Last Modified By Organization Details Last Modified Time Details Appointments COMPLETE PHYSICAL EXAM 2024 01:15P M ANGEL LUIS CRUZ MD Not available Not available Not available Lab None recorded. Referral None recorded. Procedures None recorded. Surgeries None recorded. Imaging None recorded. Medication Orders trazodone 50 mg tablet 2024 025 [facility] #[id number], [address], [place], [place], [id number], 09/19/2024 15:01:32 risperido ne 1 mg tablet 2024 025 [facility] #[id number], [address], [place], [place], [id number], 09/19/2024 15:01:29 risperido ne 0.5 mg tablet 2024 025 [facility] #[id number], [address], [place], [place], [id number], 09/19/2024 15:01:30 Patient TargetsNo targets recorded. Patient Instructions Encounter Date Encounter Id Patient Instructions Last Modified By Organization Details Last Modified Time 09/19/2024 [id number] prediabetes: car e instructions [email or web address] Not available 09/19/2024 15:01:23 goiter: care instructions [email or web address] Not available 09/19/2024 15:01:24 insomnia: care instructions [email or web address] Not available 09/19/2024 15:01:24 gastroesophageal reflux disease (GERD): care instructions [email or web address] Not available 09/19/2024 15:01:24 high blood press ure: care instructions [email or web address] Not available 09/19/2024 15:01:24 learning about h igh blood pressure Not available 09/19/2024 15:01:23 Reason for Referral None Reported. Problems Name Problem SNOMED Code Status Onset Date Resolution Date Notes Provider Name and Address Organization Details Recorded Time Mixed hyperlipide cristine 072057086 Active [facility] 3 13:34:18 Essential hypertensio n 91970141 Completed 01/30/2018 Latonia Chavez MD [address] [place] [address],[place] [address], [address], [facility] 8 12:21:30 Cough 28215875 Completed 07/20/2017 Latonia Chavez MD [address] [place] [address],[place], [address], [place] [facility] 7 11:39:37 Gastroesoph ageal reflux disease 606199486 Active [facility] 3 13:34:18 Disorder of thyroid gland 37288606 Completed 07/20/2017 Latonia Chavez MD [address] [place] [address],[place], [address], [facility] 7 11:39:16 Partial thickness burn of hand 95311705 Completed 07/20/2017 Latonia Chavez MD [address] [place] [address],[place] [address], [place], [address], [place] [facility] 7 11:39:41 Benign essential hypertensio n 5691900 Active [facility] 3 13:34:18 Insomnia 496820099 Active [facility] 3 13:34:18 Shoulder joint pain 196675404 Completed 07/20/2017 Latonia Chavez MD [address] [place] [address], [place] [address], [place], [address], [place] [facility] 7 11:39:58 Knee pain Completed 07/20/2017 Latonia Chavez MD [address] [place] [address], [address], [place], [address], [place] [facility] 7 11:39:31 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 997237832 Active [facility] 3 13:34:18 Hyperlipide cristine 50281602 Completed 07/20/2017 Latonia Chavez MD [address] [place] [address], [place] [address], [place], [address], [place] [facility] 7 11:39:48 Goiter 9517005 Active [facility] 3 13:34:18 Coronary atheroscler osis 294603398 Active [facility] 3 13:34:18 Bronchitis 57109697 Completed 07/20/2017 Latonia Chavez MD [address] [place] [address],[place] [address], [place], [address], [place] [facility] 3 13:43:34 Acute bronchitis 29377607 Completed 07/20/2017 Latonia Chavez MD [address] [place] [address],[place], [address], [facility] 7 11:39:12 Interstitia l emphysema of lung 87553364 Completed 07/20/2017 Latonia Chavez MD [address] [place] [address],[place], [address], [facility] 7 11:39:52 Menopausal and postmenopau francisco disorders 643230747 Completed 07/20/2017 Latonia Chavez MD [address] [place] [address], [place], [address], [facility] 7 11:39:23 Osteopenia 720494781 Active 2022 [facility], 3 13:34:18 Bronchitis 65994303 Active 2022 [facility], 3 13:34:18 Notes:Some problems listed i n Document: #[id number] could not be added to this patient's chart. Please review this document and add these problems to the patient's chart manually as needed. Problem Notes None recorded. Procedures Surgical History Date Name Laterality Status Provider Name and Address Organization Details Recorded Time 11/24/2014 Get Up & Go Test completed Latonia Chavez MD [address] [place] [address],[place], [address], [facility], 11/24/2014 11:49:08 04/28/2014 Get Up & Go Test completed Latonia Chavez MD [address] [place] [address],[place], [address], [facility], 04/28/2014 11:40:18 11/01/2013 Get Up & Go Test completed Latonia Chavez MD [address] [place] [address],[place], [address], [facility] 11/01/2013 11:07:40 Imaging Results None recorded. Procedure Notes None recorded. Medical Equipment None [...] Not Available Not Available Not Available levofloxa denise 500 mg tablet Take 1 tablet every [...] Not Available Not Available Not Available Fluvirin 7366-3421 (PF) 45 mcg (15 mcg x3)/0.5 mL intramusc ular syringe inject 0.5 millilit er intramus cularly 10/27 completed Not Available Not Available Not Available Fluzone High-Dose 8460-7961 (PF) 180 mcg/0.5 mL intramusc ular syringe [...] Updated DateTime 5 160.02 cm 30.3 kg/m2 50821.3 g 77 /min 137 mm[Hg] 64 mm[Hg] [facility] 5 14:45:46 Social History Question Answer Notes LastModified by Organizat ion Details LastModified Time Tobacco Smoking Status Never Smoker Not Available [facility] 06/09/2020 03:30:59 What Is Your Level Of Alcohol Consumption? Occasional [id number] Information not available 06/09/2020 Are You Blind [...] available 11/22/2022 What Is Your Occupation? Retired [id number] Information not available 06/09/2020 Marital Status Information not available 06/23/2011 What Was The Date Of Your Most Recent Tobacco Screening? 11/12/2018 [id number] Information not available 06/09/2020 How Many Children Do You Have? 2 [id number] Information not available 06/09/2020 Sex: Unknown Functional Status Question Answer Note LastModified by Organizat ion Details LastModified Time Do you have difficulty [...] 11/22/2022 What is your exercise level? None [id number] Information not available 06/09/2020 Mental Status Question Answer Note LastModified by Organization D etails LastModified Time Do you have difficulty concentrating, remembering or making decisions? No Information no t available 11/22/2022 Family History Relationship Description Onset Age of this Age Resolved Age Notes LastModified by Organization Details LastModified Time Mother Problem 93 Old Age mriad Not available 11/24/2014 11:44:37 Father Problem 67 [place] mriad Not available 11:44:37 Medical History Condition Response Hyperlipidemia Y Osteoarthritis Y CAD Y HTN Y Gynecological History Statement/Question Response Date of last PAP 2013 Date of Last Mammogram Refuses Date of Last Colonoscopy REFUSES Obstetrics History GPAL:G 0 P 0 0 0 0 Immunizations Vaccine Type Date Status Note Provider Nam e and Address Organization Details Recorded Time Influenza A monovalent (H5N1), ADJUVANTED-2012 5 completed Not Available [facility] 03/30/2022 15:11:45 Influenza A monovalent (H5N1), ADJUVANTED-2012 5 completed Not Available [facility] 03/30/2022 15:11:45 Influenza A monovalent (H5N1), ADJUVANTED-2012 5 completed Not Available [facility] 03/30/2022 15:11:45 Pneumococcal conjugate PCV 13 5 completed Not Available [facility] 03/30/2022 15:11:45 Past Encounters Encounter ID Performer Location Encounter Start Date Encounter Closed Date Diagnosis/Indication Diagnosis SNOMED-CT Code Diagnosis ICD10 Code Diagnosis Note [id number] [facility] [address] [place] [address] 09/19/2024 14:37:35 09/19/2024 16:20:30 Benign essential hypertension 0748258 I10 Insomnia 156758260 F51.0 1 Degenerati ve joint disease involving multiple joints 913025166 M15.9 Gastroesop hageal reflux disease 765746290 K21.9 Coronary atherosclerosis 704490120 I25.10 Goiter 1619935 E04.9 Mixed hyperlipidemia 267 941602 E78.2 Osteopenia 513809978 M85 .80 Anxiety 51757326 F41.9 Impaired f asting glycemia 110771827 R73.01 Health Concerns Section Related Observation LastModified by Organization Detai ls LastModified Time None Recorded Concern Status LastModified by Organization Details LastModified Time None Recorded Payers Encounter Date Sequence Insurance Name Policy Number Policy Crow Covered Member ID Crow Member ID Guarantor Name 09/19/2024 2 [place] [facility] [id number] Dagmarjune Carrero 09/19/2024 1 MEDICARE B[place] [employer] [facility] Dagmar Cory Pronina [id number] Dagmar Alise Notes Date Note Type Note Provider Name and Address Organization Details Recorded Time 09/19/2024 text/html 89 y/o female presents for an follow up visit. She has a history of HTN, bronchitis, CAD, DJD, acid reflux, goiter, hyperlipidemia, osteopenia. YOSI FELIX NP [address], [place], [address], [facility], 09/19/2024 15:02:14 OBGyn Episode No OBEpisode recorded.
--- OUTSIDE RECORDS SUMMARY | 2024-10-10 19:46 | XMS_ITS | Data Portability ---
Author Organization [facility], Bonnie Address [address] [place] [address] Care Team Providers Care Metrology Technician Name Role Phone ANGEL LUIS CRUZ Primary Care Provider Assessment No assessment recorded. Plan of Treatment Reminders Order Date Submit Date Provider Last Modified By Organization Details Last Modified Time Details Appointments Intraocul ar Pressure 2024 01:15P M Seun Mims MD Not available Not available Not available Lab None recorded. Referral None recorded. Procedures optical coherence tomograph y, retina (PROC) 2022 023 [email or web address] In-House Test, For Internal Use Only, Do Not Delete/merge, 11123 01/03/2023 13:02:53 Surgeries None recorded. Imaging None recorded. Medication Orders None recorded. Patient TargetsNo targets recorded. Patient Instructions Encounter Date Encounter Id Patient Instructions Last Modified By Organization Details Last Modified Time 12/29/2022 [id number] Patient advised that she has glaucoma which is controlled with SLT and would need her IOP checked regularly, 3-4 month intervals. Blurry vision is from cataracts. Advised patient of advancing cataract affecting the vision in {{the right the left both right vs. left* left vs right}} eye based on patient's complaints and visual assessment. Recommend elective cataract surgery. Risks and Benefits of Elective Cataract Surgery discussed at length with patient. Procedure described. Discussed need for medical clearance from PCP within 30 days of surgery date and current EKG within 6 months of surgery date. Discussed numerous post operative visits to monitor healing of eye. Patient expresses a verbal understanding and wishes to proceed. Questions answered. {{Alternative Larry dard}} intraocular lenses discussed with patient. Risks and benefits of cataract surgery discussed at length with patient and patient wishes to proceed with surgery knowing there is a guarded visual prognosis due to {{ERM ARMD*}}. Procedure described. Alternative lenses discussed with patient. Patient expresses a verbal understanding and wishes to proceed. Discussed need for medical clearance from PCP within 30 days of surgery date and current EKG within 6 months of surgery date. [email or web address] Not available 12/29/2022 13:20:17 01/05/2023 [id number] Biometer reviewe d Discussed no guarantee of final refractive outcome Not available 01/05/2023 10:15:30 08/16/2023 [id number] Advised patient of advancing cataract affecting the vision in {{the right eye the left eye both eyes* right vs. left eye left vs. right eye}} Closely monitor vision individually and activities of daily living such as reading, seeing in the distance, and glare issues such as driving at night. Advised patient of elective cataract surgery when they desire. Patient advised that their glaucoma is mild and Target pressure should be below 20. .Update testing when appropriate, which include visual field, OCT, fundus photos. Follow up visits should be at intervals of 3-4 months to monitor intra ocular pressure. Compliance and chronic nature of etiology explained to patient. son was uncooperative at visit and would not make a follow up appoint,ment for his mother. ral will speak with daughter. Not available 08/16/2023 13:28:07 12/20/2023 [id number] Patient advised that their glaucoma is mild and Target pressure should be below 20. .Update testing when appropriate, which include visual field, OCT, fundus photos. Follow up visits should be at intervals of 3-4 months to monitor intra ocular pressure. Compliance and chronic nature of etiology explained to patient. Advised patient of advancing cataract affecting the vision in {{the right eye the left eye both eyes* right vs. left eye left vs. right eye}} Closely monitor vision individually and activities of daily living such as reading, seeing in the distance, and glare issues such as driving at night. Advised patient of elective cataract surgery when they desire. Patient educated on the natural history and chronic nature of dry eye. Artificial tear samples given and advised to use up to 4 times a day. If more frequent use needed for relief of dry eye, switch to preservative-free artificial tears. Patient expresses a verbal understanding. 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 Patient advised that their glaucoma is {{mild* moderate s evere}} and {{controlled with intraocular pressures remaining in their target area uncontrolled, with pressure above target controlled with SLT #}}. Target pressure should be {{low teens mid teens* high teens not greater than 20 1 2 3 4 5 6 7 8 9 10 11 12 13 14 15 16 17 18 19 20} }. {{Continue glaucoma drops as prescribed. Stay off glaucoma drops.*}} Update testing when appropriate, which include visual field & HRT. Follow up visits should be at intervals of {{1-2 3-4 4-6*}} months to monitor intraocular pressure and vision. Compliance and chronic nature of etiology explained to patient. Not available 06/19/2024 13:17:32 Reason for Referral None Reported. Results Created Date Observation Date Name Description Value Unit Range Abnormal Flag Note LastModifiedBy Organization Detail LastModifiedTime Result Notes None recorded. 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 Seun Mims MD [address] [place] [address], [phone], [facility] 2 13:40:11 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 Procedures Surgical History Date Name Laterality Status Provider Name and Address Organization Details Recorded Time 01/05/2023 BIOMETER completed Michelle De Guzman [facility] 01/05/2023 10:16:21 12/29/2022 HRT completed Sparkle Jha [facility] 12/29/2022 13:19:26 06/15/2022 SLT completed Seun Mims MD [address] [place] [address].,[address], [place], [phone], [facility] 06/15/2022 15:21:08 06/15/2022 SLT completed Michelle De Guzman [facility] 06/15/2022 14:15:32 05/25/2022 SLT completed Seun Mims MD [address] [place] [address].,[address], [place], [phone], [facility] 05/25/2022 13:53:02 05/25/2022 SLT completed Michelle De Guzman [facility] 05/25/2022 13:04:00 09/15/2021 HRT completed Seun Mims MD [address] [place] [address].,[address], [place], [address], [facility] 09/15/2021 10:34:03 Imaging Results None recorded. Procedure Notes None recorded. Medical Equipment None Reported. Allergies No known drug allergies Medications Name Sig Start Date Stop Date Status Note LastModified by Organization Details LastModified Time losartan 50 mg tablet TAKE 1 TABLET BY MOUTH EVERY DAY active Not Available Not Available No t Available clonidine HCl 0.1 mg tablet TAKE 1 TABLET BY MOUTH TWICE DAILY active Not Available Not Available No t Available bumetanide 2 mg tablet TAKE 1 TABLET BY MOUTH EVERY DAY FOR HIGH BLOOD PRESSURE 12/29 completed Not Available Not Available Not Available triamcinolo ne acetonide 0.5 % topical cream APPLY THIN LAYER TOPICALLY TO THE AFFECTED AREA TWICE DAILY active Not Available Not Available No t Available azithromyci n 250 mg tablet 12/21 completed Not Available Not Available Not Available metoprolol succinate ER 50 mg tablet,exte nded release 24 hr TAKE 1 TABLET BY MOUTH EVERY DAY active Not Available Not Available No t Available alendronate 70 mg tablet TAKE 1 TABLET BY MOUTH EVERY WEEK 12/29 completed Not Available Not Available Not Available amlodipine 5 mg tablet TAKE 1 TABLET BY MOUTH EVERY DAY active Not Available Not Available No t Available omeprazole 40 mg capsule,del ayed release TAKE 1 CAPSULE BY MOUTH EVERY DAY active Not Available Not Available No t Available acetaminoph en 500 mg tablet TAKE 1 CAPLET BY MOUTH 3 TO 4 TIMES DAILY NEEDED FOR PAIN FOR UP TO 5 DAYS 12/29 completed Not Available Not Available Not Available amoxicillin 500 mg tablet TAKE 1 TABLET BY MOUTH EVERY 8 HOURS FOR 7 DAYS 12/29 completed Not Available Not Available Not Available triamcinolo ne acetonide 0.025 % topical cream APPLY THIN LAYER TOPICALLY TO THE AFFECTED AREA TWICE DAILY active Not Available Not Available No t Available nifedipine ER 60 mg tablet,exte nded release 24 hr TAKE 1 TABLET BY MOUTH EVERY DAY active Not Available Not Available No t Available nystatin 100,000 unit/gram topical cream APPLY TOPICALLY TO THE AFFECTED AREA TWICE DAILY active Not Available Not Available No t Available nitroglycer in 0.[address] TABLET UNDER THE TONGUE NEEDEDQ active Not Available Not Available No t Available bumetanide 1 mg tablet TAKE 1 TABLET BY MOUTH EVERY DAY active Not Available Not Available No t Available furosemide 20 mg tablet TAKE 1 TABLET BY MOUTH EVERY DAY active Not Available Not Available No t Available zolpidem 10 mg tablet TAKE 1 TABLET BY MOUTH AT BEDTIME NEEDED active Not Available Not Available No t Available methylpredn isolone 4 mg tablets in a dose pack FOLLOW PACKAGE DIRECTION S 06/19 completed Not Available Not Available Not Available nifedipine ER 60 mg tablet,exte nded release TAKE 1 TABLET BY MOUTH EVERY DAY active Not Available Not Available No t Available losartan 100 mg tablet TAKE 1 TABLET BY MOUTH EVERY DAY active Not Available Not Available No t Available chlorhexidi ne gluconate 0.12 % mouthwash 06/19 completed Not Available Not Available Not Available Vitals None Recorded Social History None recorded. Functional Status None recorded. Mental Status None recorded. Family History Relationship Description Onset Age of this Age Resolved Age Notes LastModified by Organization Details LastModified Time Father No current problems or disability [email or web address] Not available 01/01 10:25:06 Mother No current problems or disability [email or web address] Not available 01/01 10:25:07 Medical History Condition Response Are you being treated for THYROID DISEAS E ? N Are you being treated for RESPIRATORY DI SEASE? N Are you being treated for HEART DISEASE? N Have you ever worn contact lenses? N Are you being treated for HIGH CHOLESTRO L? Y Are you being treated for HYPERTENSION? Y Are you being treated for PROSTATE PROBL EMS? N Have you ever been treated for ulcers or mcc eye infections? N Have you ever been treated for Shingles on or near your eyes or face? N Have you had previous injections for ret inal problems? N Have you ever had eye surger y of any kind before (including corrective laser surgery)? N Have you ever been treated for lazy ey e? N Have you had or have you ever been treat ed for glaucoma? N Are you being treated for DIABETES ? N Gynecological HistoryNo gynecological history recorded. Obstetrics History GPAL:G 0 P 0 0 0 0 Past Encounters Encounter ID Performer Location Encounter Start Date Encounter Closed Date Diagnosis/Indication Diagnosis SNOMED-CT Code Diagnosis ICD10 Code Diagnosis Note [id number] MD Bonnie Muro [address] [place] [address] [place] [address] 01/01/2021 09:47:15 01/01/2021 10:59:21 Combined form of senile cataract 73646626 H25.813 Open-angle glaucoma - borderline 184143674 H40.013 Pseudoexfo liation of lens capsule 89508185 H26.8 [id number] MD Bonnie Muro [address] [place] [address] [place] [id number] 09/15/2021 09:52:02 09/15/2021 10:19:37 Open-angle glaucoma - borderline 670097341 H40.013 Pseudoexfo liation of lens capsule 74466571 H26.8 [id number] MD Bonnie Muro [address] [place] [address] [place] [address] 04/13/2022 12:56:43 04/13/2022 13:47:14 Combined form of senile cataract 44833147 H25.813 Pseudoexfo liation of lens capsule 13481257 H26.8 Pseudoexfo liation glaucoma 161322263 H40.1421 early [id number] MD Bonnie Muro [address] [place] [address] [place] [id number] 05/25/2022 13:00:57 05/25/2022 13:59:57 Glaucoma with increased episcleral venous pressure 89775479 H40.812 [id number] MD Bonnie Muro [address] [place] [address] [place] [address] 06/15/2022 14:12:38 06/15/2022 15:07:32 Glaucoma with increased episcleral venous pressure 68751519 H40.811 [id number] MD Bonnie Muro [address] [place] [address] [place] [address] 12/21/2022 15:46:58 12/21/2022 16:12:07 Combined form of senile cataract 93951599 H25.813 Pseudoexfo liation glaucoma 045104600 H40.1421 [id number] MD Bonnie Muro [address] [place] [address] [place] [address] 12/29/2022 12:50:12 12/29/2022 13:26:32 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.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 Combined f orm of senile cataract 83815324 H25.813 Macular drusen 130996753 H35.363 [id number] MD Bonnie Muro [address] [place] [address] [place] [id number] 01/05/2023 09:29:57 01/05/2023 09:50:25 Combined form of senile cataract 49587570 H25.813 [id number] MD Bonnie Muro [address] [place] [address] [place] [id number] 08/16/2023 13:12:10 08/16/2023 13:27:02 Combined form of senile cataract 40270573 H25.813 Pseudoexfo liation glaucoma 518670029 H40.1421 Pseudoexfo liation of lens capsule 73205124 H26.8 [id number] MD Bonnie Muro [address] [place] [address] [place] [id number] 12/20/2023 13:54:06 12/20/2023 14:17:04 Pseudoexfoliation glaucoma 368169906 H40.1421 Combined f orm of senile cataract 23329232 H25.813 [id number] MD Bonnie Muro [address] [place] [address] [place] [address] 06/19/2024 12:51:47 06/19/2024 13:18:54 Pseudoexfoliation glaucoma 482925608 H40.1421 Combined f orm of senile cataract 39067205 H25.813 Health Concerns Section Related Observation LastModified by Organization Detai ls LastModified Time None Recorded Concern Status LastModified by Organization Details LastModified Time None Recorded Advance Directives Directive None Recorded Payers Encounter Date Sequence Insurance Name Policy Number Policy Crow Covered Member ID Crow Member ID Guarantor Name 12/29/2022 1 [place] [employer] Dagmar Ray Pronina [id number] Dagmar Pronina 12/29/2022 2 [place] Dagmar Ray Pronina [id number] Dagmar Pronina 01/05/2023 1 [place] [employer] Dagmar Ray Pronina [id number] Dagmar Pronina 01/05/2023 2 [place] Dagmar Ray Pronina [id number] Dagmar Pronina 08/16/2023 1 [place] [employer] Dagmar Ray Pronina [id number] Dagmar Pronina 08/16/2023 2 [place] Dagmar Ray Pronina [id number] Dagmar Pronina 12/20/2023 1 [place] [employer] Dagmar Ray Pronina [id number] Dagmar Carrero 12/20/2023 2 [place] [facility] Dagmar Carrero [id number] Dagmar Carrero 06/19/2024 1 [place]ICARE [place] [facility] Dagmar Carrero [id number] Dagmar Carrero 06/19/2024 2 [place] [facility] Dagmar Carrero [id number] Dagmar Carrero Notes Date Note Type Note Provider Name and Address Organization Details Recorded Time 3 text/html CataractReported bypatient.Location:[place] Quality:cloudy; blurry Severity:severe Duration:year(s) Onset/Timing:gradual Context:decreased visionGlaucomaReported bypatient.Location:[place] Quality:history of glaucoma;Post SLT both eyes Context:diagnosed: (2021) Modifying Factors:compliant (NO DROPS) Dictated to BP by BALTA Mims MD [address] [place] [address],[facility] [address], [phone], [facility] 12/29/2022 15:05:49 4 text/html CataractReported bypatient.Location:[place] Quality:cloudy; blurry Severity:severe Duration:year(s) Onset/Timing:gradual Context:decreased visionGlaucomaReported bypatient.Location:[place] Quality:history of glaucoma;Post SLT both eyes Context:diagnosed: (2021) Modifying Factors:compliant (NO DROPS) Dictated to tl by BALTA Mims MD [address] [place] [address],[facility] [address], [address], [facility] 08/16/2023 13:28:59 4 text/html CataractReported bypatient.Location:[place] Quality:cloudy; blurry; photophobic Severity:severe Duration:year(s) Onset/Timing:gradual; chronic Modifying Factors:nothing improves; nothing worsensGlaucomaReported bypatient.Location:[place] Quality:history of glaucoma;Post SLT both eyes Context:diagnosed: (2021) Modifying Factors:compliant (NO DROPS) Dictated to tl by BALTA Mims MD [address] [place] [address],[address], [place], [address], [facility] 12/20/2023 14:15:34 text/html CataractRep[facility] Quality:cloudy; blurry; photophobic Severity:severe Duration:year(s) Onset/Timing:gradual; chronic Modifying Factors:nothing improves; nothing worsensGlaucomaReported bypatient.[facility] Quality:history of glaucoma;Post SLT both eyes Context:diagnosed: (2021) Modifying Factors:compliant (NO DROPS) [facility] by Kamrny Mims MD [address] [facility],[address], [place], [address], [facility] 06/19/2024 13:48:22 OBGyn Episode No OBEpisode recorded.
[2024-10-10 20:00] VITALS: BP 177/86; PULSE 91; BMI 29.1
[2024-10-10 21:01] LABS: Alanine Aminotransferase 13 U/L (0-31); Albumin Level 3.8 g/dL (3.5-5.0); Anion Gap 14 (12-20); Aspartate Amino Transferase 25 U/L (5-31); Bilirubin Total 0.9 mg/dL (0.0-1.0); Blood Urea Nitrogen 11 mg/dL (9-16); Calcium 9.7 mg/dL (8.4-10.2); Carbon Dioxide 21 mmol/L (22-29); Chloride 107 mmol/L (96-108); Estimated Glomerular Filt Rate > 60; Glucose Random 148 mg/dL (60-115); Potassium 3.7 mmol/L (3.3-5.1); Sodium 138 mmol/L (135-145); Total Protein 7.9 g/dL (6.5-8.0)
[2024-10-10 21:11] LABS: Alkaline Phosphatase 77 U/L (39-117)
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
[2024-10-11 08:00] VITALS: BP 177/90; PULSE 101; RESP 18; TEMP 36.4; O2SAT 95
[2024-10-11] MEDS: Losartan Potassium 50 MG TABLET PO (09:03)
[2024-10-11] MEDS: Metoprolol Succinate ER 50 MG TAB.ER.24H PO (09:04)
[2024-10-11] MEDS: Bumetanide 1 MG TABLET 2 MG PO (09:04)
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
[2024-10-11 09:31] LABS: Cholesterol 179 mg/dL (<200); HDL Cholesterol 66 mg/dL (>40); LDL Cholesterol Calculated 100 mg/dL (<100); Triglycerides 68 mg/dL (<150)
[2024-10-11 10:07] LABS: Estimated Average Glucose 114 mg/dL; Hemoglobin A1c % 5.6 % (<6.0)
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
[2024-10-11 20:00] VITALS: BP 160/74; PULSE 74; RESP 16; TEMP 36.6; O2SAT 96
[2024-10-11] MEDS: risperiDONE 0.5 MG TABLET PO (20:21)
[2024-10-12 07:50] VITALS: BP 146/78; PULSE 98; RESP 16; TEMP 36.9; O2SAT 98
[2024-10-12] MEDS: Metoprolol Succinate ER 50 MG TAB.ER.24H PO (08:26)
[2024-10-12] MEDS: Losartan Potassium 50 MG TABLET PO (08:26)
[2024-10-12] MEDS: risperiDONE 0.5 MG TABLET PO ×2 (08:26→20:03)
[2024-10-12] MEDS: Bumetanide 1 MG TABLET 2 MG PO (08:26)
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
[2024-10-12 20:00] VITALS: BP 113/59; PULSE 80; TEMP 36.1; O2SAT 98
[2024-10-13 10:32] VITALS: BP 132/69; PULSE 90; RESP 18; TEMP 36.6; O2SAT 96
[2024-10-13] MEDS: Losartan Potassium 50 MG TABLET PO (10:33)
[2024-10-13] MEDS: Bumetanide 1 MG TABLET 2 MG PO (10:33)
[2024-10-13] MEDS: Metoprolol Succinate ER 50 MG TAB.ER.24H PO (10:33)
[2024-10-13] MEDS: risperiDONE 0.5 MG TABLET PO ×2 (10:34→20:21)
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
[2024-10-13 20:00] VITALS: BP 105/54; PULSE 78; RESP 18; TEMP 36.3; O2SAT 98
[2024-10-14 09:35] VITALS: BP 99/54; PULSE 79; RESP 16; TEMP 36.7; O2SAT 96
[2024-10-14] MEDS: risperiDONE 0.5 MG TABLET PO ×2 (09:49→20:17)
--- NOTE | 2024-10-14 10:12 | HO.PSYCHPN ---
Subjective Subjective Date of Service: 10/14/24 Reason For Visit: delusional d/o Subjective Notes: Conditional Voluntary Interim History: Pt slept through the night. Met with patient and Spanish dealmaker. Pt reports she sees a girl and a man, these are the ones that she believes are trying to kill her. She reports they were telling her yesterday that if she talks about them again to others, she will be killed. She reports she feels safe. She also believes her daughter wants her to take psychiatric medications because it causes amnesia and then she would not remember what has happened. She denies SI/HI. She is appreciative of the help here. She did sign CV. She understands she is here in a psychiatric unit. Her BP is on lower side. Pt encourage to drink fluids, suspect risperidone also contributing to low blood pressure. continue to monitor. Medication Compliance: Yes Review of Systems Review of Systems Pt denies SOB, chest pain. She reports difficulty walking, ambulates with walker. Denies diarrhea or loose stools. Mental Status Exam Mental Status Exam Narrative: Appearance: wearing hospital gown, ambulating with walker, in NAD behavior: cooperative Psychomotor: no agitation or retardation noted Speech: (assess with assistance of dealmaker) mostly clear, regular rate/rhythm, spontaneous TP: some loose associations TC: worried that someone is trying to harm her, even here on the unit Mood: good Affect: somewhat anxious seems related to paranoid delusions SI: denies HI: denies VH/AH: appears internally preoccupied, although when asked, denies it Delusions: paranoid/persecutory delusions Insight/judgment: limited x 2 Memory/cog: alert, knows she is in the hospital, knows month, year, thinks she is in the hospital because of back pain, despite being able to tell this com writer she is in mental health unit. Diagnostics Vital Signs (24Hr): Vital Signs - 24 hr 10/13/24 10:32 10/13/24 20:00 10/14/24 09:35 Temperature 97.9 F 97.3 F 98.0 F Pulse Rate 90 78 79 Respiratory Rate 18 18 16 Blood Pressure 132/69 105/54 L 99/54 L Pulse Oximetry 96 98 96 Oxygen Delivery Method Room Air Room Air Room Air BMI result Body Mass Index 29.1 Labs 10/10/24 20:28 Medications Medications Current Medications Acetaminophen (Acetaminophen 325 Mg Tablet) 650 mg PO Q6H PRN PRN Reason: Headache/Pain, Scale 1-10 Al Hydroxide/Mg Hydroxide (Magnesium Hydrox/Alum Hydrox 30 Ml Oral.Susp) 30 ml PO Q6H PRN PRN Reason: Heartburn/Nausea Bumetanide (Bumetanide 1 Mg Tablet) 2 mg PO DAILY [facility]; Protocol Last Admin: 10/14/24 09:49 Dose: Not Given Diphenhydramine HCl (Diphenhydramine Hcl 25 Mg Capsule) 25 mg PO Q6H PRN PRN Reason: Itching Losartan Potassium (Losartan Potassium 50 Mg Tablet) 50 mg PO DAILY [facility]; Protocol Last Admin: 10/14/24 09:45 Dose: Not Given Magnesium Hydroxide (Milk Of Magnesia 30 Ml Oral.Susp) 30 ml PO DAILY PRN PRN Reason: Constipation Metoprolol Succinate (Metoprolol Succinate Er 50 Mg Tab.Er.24h) 50 mg PO DAILY [facility]; Protocol Last Admin: 10/14/24 09:46 Dose: Not Given Nicotine Polacrilex (Nicotine Polacrilex 2 Mg Gum) 4 mg BUCCAL Q2H PRN PRN Reason: Nicotine Cravings Olanzapine (Olanzapine 2.5 Mg Tablet) 2.5 mg PO BID PRN PRN Reason: agitation Risperidone (Risperidone 0.5 Mg Tablet) 0.5 mg PO BID [facility] Last Admin: 10/14/24 09:49 Dose: 0.5 mg Trazodone HCl (Trazodone Hcl 25 Mg Halftab) 25 mg PO BEDTIME MRX1 PRN PRN Reason: Insomnia Allergies Allergies Allergy/AdvReac Type Severity Reaction Status Date / Time Unable to Assess Allergy Unverified 10/10/24 19:16 Assessment & Plan Assessment & Plan (1) Schizoaffective disorder: Status: Acute Code(s): F25.9 - Schizoaffective disorder, unspecified Plan Mrs. Aldana is a 89 year-old woman who according to her daughter has a long hx of paranoid delusions and psychiatric history but they can't tell what dx she has been given. Daughter denies s/s consistent with lana or hypomania. Working dx is schizoaffective disorder. Pt apparently does not take medications consistently once discharge and rapidly decompensates. We discussed risks, benefits and alternative treatment options, restart risperidone 0.5mg po BID. 10/12 continue risperidone 0.5mg po BID, continues to present as paranoid. 10/13 continue tx. 10/14 monitor BP, encourage increase fluid intake. Reason for continued inpatient stay Substantial Risk for: inability to function Time Spent With Patient Time: Total time managing care of this patient today ____ minutes.
[2024-10-14] MEDS: Magnesium Hydrox/Alum Hydrox 30 ML ORAL.SUSP PO ×2 (12:14→18:12)
[2024-10-14 20:00] VITALS: BP 111/55; PULSE 90; RESP 18; TEMP 36.6; O2SAT 98
[2024-10-15 08:00] VITALS: BP 114/63; PULSE 99; RESP 18; TEMP 36.4; O2SAT 95
[2024-10-15] MEDS: risperiDONE 0.5 MG TABLET PO ×2 (08:51→20:15)
[2024-10-15 09:37] VITALS: BP 114/63; PULSE 99
[2024-10-15] MEDS: Metoprolol Succinate ER 50 MG TAB.ER.24H PO (09:37)
[2024-10-15 09:44] VITALS: BP 114/63
[2024-10-15 09:45] VITALS: BP 114/63
--- NOTE | 2024-10-15 12:33 | HO.PSYCHPN ---
Subjective Subjective Date of Service: 10/16/24 Reason For Visit: delusional d/o Subjective Notes: Conditional Voluntary Interim History: Pt slept through the night. Pt reports that she heard man and girl last night. She reports she can't see them but she hears them. She reports pain in legs, when trying to clarify where e.i calves versus foot, she points at knee but also calves and reports foot pain. No significant swelling noted. Review of Systems Review of Systems Pt denies SOB, chest pain. She reports difficulty walking, ambulates with walker. Denies diarrhea or loose stools. Mental Status Exam Mental Status Exam Narrative: Appearance: wearing hospital gown, ambulating with walker, in NAD behavior: cooperative Psychomotor: no agitation or retardation noted Speech: (assess with assistance of parts interpreter) mostly clear, regular rate/rhythm, spontaneous TP: some loose associations TC: worried that someone is trying to harm her, even here on the unit Mood: good Affect: somewhat anxious seems related to paranoid delusions SI: denies HI: denies VH/AH: appears internally preoccupied, although when asked, denies it Delusions: paranoid/persecutory delusions Insight/judgment: limited x 2 Memory/cog: alert, knows she is in the hospital, knows month, year, thinks she is in the hospital because of back pain, despite being able to tell this science writer she is in mental health unit. Diagnostics Vital Signs (24Hr): Vital Signs - 24 hr 10/14/24 20:00 10/15/24 08:00 10/15/24 09:37 Temperature 97.9 F 97.5 F Pulse Rate 90 99 99 Respiratory Rate 18 18 Blood Pressure 111/55 L 114/63 114/63 Pulse Oximetry 98 95 Oxygen Delivery Method Room Air 10/15/24 09:44 10/15/24 09:45 Temperature Pulse Rate Respiratory Rate Blood Pressure 114/63 114/63 Pulse Oximetry Oxygen Delivery Method BMI result Body Mass Index 29.1 Labs 10/10/24 20:28 Medications Medications Current Medications Acetaminophen (Acetaminophen 325 Mg Tablet) 650 mg PO Q6H PRN PRN Reason: Headache/Pain, Scale 1-10 Al Hydroxide/Mg Hydroxide (Magnesium Hydrox/Alum Hydrox 30 Ml Oral.Susp) 30 ml PO Q6H PRN PRN Reason: Heartburn/Nausea Last Admin: 10/14/24 18:12 Dose: 30 ml Bumetanide (Bumetanide 1 Mg Tablet) 2 mg PO DAILY [facility]; Protocol Last Admin: 10/15/24 09:44 Dose: Not Given Diphenhydramine HCl (Diphenhydramine Hcl 25 Mg Capsule) 25 mg PO Q6H PRN PRN Reason: Itching Losartan Potassium (Losartan Potassium 50 Mg Tablet) 50 mg PO DAILY [facility]; Protocol Last Admin: 10/15/24 09:45 Dose: Not Given Magnesium Hydroxide (Milk Of Magnesia 30 Ml Oral.Susp) 30 ml PO DAILY PRN PRN Reason: Constipation Metoprolol Succinate (Metoprolol Succinate Er 50 Mg Tab.Er.24h) 50 mg PO DAILY [facility]; Protocol Last Admin: 10/15/24 09:37 Dose: 50 mg Nicotine Polacrilex (Nicotine Polacrilex 2 Mg Gum) 4 mg BUCCAL Q2H PRN PRN Reason: Nicotine Cravings Olanzapine (Olanzapine 2.5 Mg Tablet) 2.5 mg PO BID PRN PRN Reason: agitation Risperidone (Risperidone 0.5 Mg Tablet) 0.5 mg PO BID [facility] Last Admin: 10/15/24 08:51 Dose: 0.5 mg Trazodone HCl (Trazodone Hcl 25 Mg Halftab) 25 mg PO BEDTIME MRX1 PRN PRN Reason: Insomnia Allergies Allergies Allergy/AdvReac Type Severity Reaction Status Date / Time Unable to Assess Allergy Unverified 10/10/24 19:16 Assessment & Plan Assessment & Plan (1) Schizoaffective disorder: Status: Acute Code(s): F25.9 - Schizoaffective disorder, unspecified Plan Mrs. Aldana is a 89 year-old woman who according to her daughter has a long hx of paranoid delusions and psychiatric history but they can't tell what dx she has been given. Daughter denies s/s consistent with lana or hypomania. Working dx is schizoaffective disorder. Pt apparently does not take medications consistently once discharge and rapidly decompensates. We discussed risks, benefits and alternative treatment options, restart risperidone 0.5mg po BID. 10/12 continue risperidone 0.5mg po BID, continues to present as paranoid. 10/13 continue tx. 10/14 monitor BP, encourage increase fluid intake. 10/15 BP low, help losartan. less paranoia but still on and off. will order hospitalist consult for leg pain Reason for continued inpatient stay Substantial Risk for: inability to function Time Spent With Patient Time: Total time managing care of this patient today ____ minutes.
[2024-10-15 20:00] VITALS: BP 141/65; PULSE 76; RESP 15; TEMP 36.6; O2SAT 99
[2024-10-15] MEDS: traZODone HCL 25 MG HALFTAB PO (22:22)
[2024-10-16 08:17] VITALS: BP 135/65; PULSE 78; RESP 16; TEMP 36.9; O2SAT 95
[2024-10-16] MEDS: Losartan Potassium 50 MG TABLET PO (08:35)
[2024-10-16] MEDS: Metoprolol Succinate ER 50 MG TAB.ER.24H PO (08:35)
[2024-10-16] MEDS: risperiDONE 0.5 MG TABLET PO ×2 (08:35→22:11)
[2024-10-16] MEDS: Acetaminophen 325 MG TABLET 650 MG PO (08:35)
[2024-10-16] MEDS: Bumetanide 1 MG TABLET 2 MG PO (08:36)
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
[2024-10-16] MEDS: Magnesium Hydrox/Alum Hydrox 30 ML ORAL.SUSP PO (10:20)
[2024-10-16] MEDS: Omeprazole 20 MG CAPSULE.DR PO (10:23)
--- NOTE | 2024-10-16 14:22 | PC.NURSE ---
Pt stated that she is having BL leg pain as well as knee pain. Ultrasound and xray ordered. Slight redness noted on BL LE, cool to the touch. Pt also continued to c/o acid reflux. Prilosec added to daily schedule.
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
[2024-10-16 20:00] VITALS: BP 105/53; PULSE 79; RESP 18; TEMP 36.3; O2SAT 98
[2024-10-16] MEDS: OLANZapine 2.5 MG TABLET PO (22:11)
[2024-10-16] MEDS: traZODone HCL 25 MG HALFTAB PO (22:11)
[2024-10-17] MEDS: Omeprazole 20 MG CAPSULE.DR PO (06:45)
[2024-10-17 08:49] VITALS: BP 129/62; PULSE 72; RESP 15; TEMP 36.7; O2SAT 98
[2024-10-17] MEDS: Losartan Potassium 50 MG TABLET PO (08:50)
[2024-10-17] MEDS: Metoprolol Succinate ER 50 MG TAB.ER.24H PO (08:50)
[2024-10-17] MEDS: Bumetanide 1 MG TABLET 2 MG PO (08:50)
[2024-10-17] MEDS: risperiDONE 0.5 MG TABLET PO ×2 (08:50→19:44)
[2024-10-17 13:53] VITALS: BMI 28.6
--- NOTE | 2024-10-17 15:17 | HO.PSYCHPN ---
Subjective Subjective Date of Service: 10/17/24 Reason For Visit: delusional d/o Interim History: [place]ian language only, seen with robo-straightener gun parts. remains psychotic, hearing vocies talking to her in the evening. believes these people are on her bed during the day but under her bed at night. sleep is variable, feeling heavy. no complaints of daytime sedation. Mental Status Exam Mental Status Exam Narrative: Appearance: wearing hospital gown, ambulating with walker, in NAD behavior: cooperative Psychomotor: no agitation or retardation noted Speech: (assess with assistance of straightener gun parts) mostly clear, regular rate/rhythm, spontaneous TP: some loose associations TC: people on and under her bed talking to her Mood: good Affect: somewhat anxious seems related to paranoid delusions SI: denies HI: denies VH/AH: AH of ppl talking to her in the evening fro munder her bed Delusions: paranoid/persecutory delusions Insight/judgment: limited x 2 Memory/cog: alert, knows she is in the hospital, knows month, year, thinks she is in the hospital because of back pain, despite being able to tell this contract writer she is in mental health unit. Diagnostics Vital Signs (24Hr): Vital Signs - 24 hr 10/16/24 20:00 10/17/24 08:49 Temperature 97.4 F 98.1 F Pulse Rate 79 72 Respiratory Rate 18 15 Blood Pressure 105/53 L 129/62 Pulse Oximetry 98 98 Oxygen Delivery Method Room Air Room Air BMI result Body Mass Index 28.6 Labs 10/10/24 20:28 Imaging Radiology Impressions: ITS Impressions Knee X-Ray 10/16/24 12:50 IMPRESSION: 1. Small joint effusion. Probable 3 mm loose body. 2. 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 Electronically signed by: Seun Robles MD 10/16/2024 01:12 PM EDT Medications Medications Current Medications Acetaminophen (Acetaminophen 325 Mg Tablet) 650 mg PO Q6H PRN PRN Reason: Headache/Pain, Scale 1-10 Last Admin: 10/16/24 08:35 Dose: 650 mg Al Hydroxide/Mg Hydroxide (Magnesium Hydrox/Alum Hydrox 30 Ml Oral.Susp) 30 ml PO Q6H PRN PRN Reason: Heartburn/Nausea Last Admin: 10/16/24 10:20 Dose: 30 ml Bumetanide (Bumetanide 1 Mg Tablet) 2 mg PO DAILY [facility]; Protocol Last Admin: 10/17/24 08:50 Dose: 2 mg Diphenhydramine HCl (Diphenhydramine Hcl 25 Mg Capsule) 25 mg PO Q6H PRN PRN Reason: Itching Losartan Potassium (Losartan Potassium 50 Mg Tablet) 50 mg PO DAILY [facility]; Protocol Last Admin: 10/17/24 08:50 Dose: 50 mg Magnesium Hydroxide (Milk Of Magnesia 30 Ml Oral.Susp) 30 ml PO DAILY PRN PRN Reason: Constipation Metoprolol Succinate (Metoprolol Succinate Er 50 Mg Tab.Er.24h) 50 mg PO DAILY [facility]; Protocol Last Admin: 10/17/24 08:50 Dose: 50 mg Nicotine Polacrilex (Nicotine Polacrilex 2 Mg Gum) 4 mg BUCCAL Q2H PRN PRN Reason: Nicotine Cravings Olanzapine (Olanzapine 2.5 Mg Tablet) 2.5 mg PO BID PRN PRN Reason: agitation Last Admin: 10/16/24 22:11 Dose: 2.5 mg Omeprazole (Omeprazole 20 Mg Capsule.Dr) 20 mg PO DAILY@0700 [facility] Last Admin: 10/17/24 06:45 Dose: 20 mg Risperidone (Risperidone 0.5 Mg Tablet) 0.5 mg PO BID [facility] Last Admin: 10/17/24 08:50 Dose: 0.5 mg Trazodone HCl (Trazodone Hcl 25 Mg Halftab) 25 mg PO BEDTIME MRX1 PRN PRN Reason: Insomnia Last Admin: 10/16/24 22:11 Dose: 25 mg Allergies Allergies Allergy/AdvReac Type Severity Reaction Status Date / Time Unable to Assess Allergy Unverified 10/10/24 19:16 Assessment & Plan Assessment & Plan (1) Schizoaffective disorder: Status: Acute Code(s): F25.9 - Schizoaffective disorder, unspecified Plan Mrs. Aldana is a 89 year-old woman who according to her daughter has a long hx of paranoid delusions and psychiatric history but they can't tell what dx she has been given. Daughter denies s/s consistent with lana or hypomania. Working dx is schizoaffective disorder. Pt apparently does not take medications consistently once discharge and rapidly decompensates. We discussed risks, benefits and alternative treatment options, restart risperidone 0.5mg po BID. 10/12 continue risperidone 0.5mg po BID, continues to present as paranoid. 10/13 continue tx. 10/14 monitor BP, encourage increase fluid intake. 10/15 BP low, help losartan. less paranoia but still on and off. will order hospitalist consult for leg pain 10/16 continue tx. 10/17 continue tx. continue to monitor BP as it's been lowered suspect as consequence of addition of risperidone. consult to hospitalist for leg pain. 10/18: increase HS risperidone to 1 mg for ongoing psychosis, otherwise continue current mgmt. LE doppler pending. Reason for continued inpatient stay Substantial Risk for: inability to function Time Spent With Patient Time: Total time managing care of this patient today __35__ minutes.
[2024-10-17 19:44] VITALS: BP 101/53; PULSE 75; RESP 15; TEMP 36.3; O2SAT 99
[2024-10-18] MEDS: Omeprazole 20 MG CAPSULE.DR PO (05:29)
[2024-10-18 08:00] VITALS: BP 131/63; PULSE 71; RESP 18; TEMP 36.2; O2SAT 97
[2024-10-18] MEDS: Bumetanide 1 MG TABLET 2 MG PO (08:30)
[2024-10-18] MEDS: Losartan Potassium 50 MG TABLET PO (08:30)
[2024-10-18] MEDS: Metoprolol Succinate ER 50 MG TAB.ER.24H PO (08:30)
[2024-10-18] MEDS: risperiDONE 0.5 MG TABLET PO (08:30)
--- NOTE | 2024-10-18 11:20 | HO.PSYCHPN ---
Subjective Subjective Date of Service: 10/18/24 Reason For Visit: delusional d/o Subjective Notes: Conditional Voluntary Interim History: Met with pt and social worker delinquency prevention. Pt sleeping better and in her room, unlike few days ago when she did not want to go to her room because she thought man and woman in the room. She continues to report that she hears them talk at night. She states she does not hear them as much during the room but this is because she does not go to her room according to her. She reports feeling better medically, less dizziness. Less weakness on legs. She denies SI/HI. No aggression. She is taking medications as prescribed. She also reports she feels safe here. Diagnostics Vital Signs (24Hr): Vital Signs - 24 hr 10/17/24 19:44 10/18/24 08:00 Temperature 97.4 F 97.1 F Pulse Rate 75 71 Respiratory Rate 15 18 Blood Pressure 101/53 L 131/63 Pulse Oximetry 99 97 Oxygen Delivery Method Room Air Room Air BMI result Body Mass Index 28.6 Labs 10/10/24 20:28 Imaging Radiology Impressions: ITS Impressions Knee X-Ray 10/16/24 12:50 IMPRESSION: 1. Small joint effusion. Probable 3 mm loose body. 2. 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 Electronically signed by: Seun Robles MD 10/16/2024 01:12 PM EDT Arterial/Peripheral Duplex 10/17/24 16:48 IMPRESSION: 1. Normal right leg ankle brachial index. The left cannot be calculated as segmental BP of the DP is greater than 200 systolic. 2. Scattered mild calcified atherosclerotic disease is present. There is likely mild arterial vascular disease in the left greater than right lower extremities. 3. Biphasic waveforms in the left EXTRACT OPERATOR, suggesting possible more proximal disease. 4. No criteria for flow-limiting stenosis identified in either lower extremity. See above for details. Electronically signed by: Sriram Calloway MD 10/18/2024 09:52 AM EDT Medications Medications Current Medications Acetaminophen (Acetaminophen 325 Mg Tablet) 650 mg PO Q6H PRN PRN Reason: Headache/Pain, Scale 1-10 Last Admin: 10/16/24 08:35 Dose: 650 mg Al Hydroxide/Mg Hydroxide (Magnesium Hydrox/Alum Hydrox 30 Ml Oral.Susp) 30 ml PO Q6H PRN PRN Reason: Heartburn/Nausea Last Admin: 10/16/24 10:20 Dose: 30 ml Bumetanide (Bumetanide 1 Mg Tablet) 2 mg PO DAILY [facility]; Protocol Last Admin: 10/18/24 08:30 Dose: 2 mg Diphenhydramine HCl (Diphenhydramine Hcl 25 Mg Capsule) 25 mg PO Q6H PRN PRN Reason: Itching Losartan Potassium (Losartan Potassium 50 Mg Tablet) 50 mg PO DAILY [facility]; Protocol Last Admin: 10/18/24 08:30 Dose: 50 mg Magnesium Hydroxide (Milk Of Magnesia 30 Ml Oral.Susp) 30 ml PO DAILY PRN PRN Reason: Constipation Metoprolol Succinate (Metoprolol Succinate Er 50 Mg Tab.Er.24h) 50 mg PO DAILY [facility]; Protocol Last Admin: 10/18/24 08:30 Dose: 50 mg Nicotine Polacrilex (Nicotine Polacrilex 2 Mg Gum) 4 mg BUCCAL Q2H PRN PRN Reason: Nicotine Cravings Olanzapine (Olanzapine 2.5 Mg Tablet) 2.5 mg PO BID PRN PRN Reason: agitation Last Admin: 10/16/24 22:11 Dose: 2.5 mg Omeprazole (Omeprazole 20 Mg Capsule.Dr) 20 mg PO DAILY@0700 [facility] Last Admin: 10/18/24 05:29 Dose: 20 mg Risperidone (Risperidone 0.5 Mg Tablet) 0.5 mg PO BID [facility] Last Admin: 10/18/24 08:30 Dose: 0.5 mg Trazodone HCl (Trazodone Hcl 25 Mg Halftab) 25 mg PO BEDTIME MRX1 PRN PRN Reason: Insomnia Last Admin: 10/16/24 22:11 Dose: 25 mg Allergies Allergies Allergy/AdvReac Type Severity Reaction Status Date / Time No Known Allergies Allergy Verified 10/17/24 20:57 Assessment & Plan Assessment & Plan (1) Schizoaffective disorder: Status: Acute Code(s): F25.9 - Schizoaffective disorder, unspecified Plan Mrs. Aldana is a 89 year-old woman who according to her daughter has a long hx of paranoid delusions and psychiatric history but they can't tell what dx she has been given. Daughter denies s/s consistent with lana or hypomania. Working dx is schizoaffective disorder. Pt apparently does not take medications consistently once discharge and rapidly decompensates. We discussed risks, benefits and alternative treatment options, restart risperidone 0.5mg po BID. 10/12 continue risperidone 0.5mg po BID, continues to present as paranoid. 10/13 continue tx. 10/14 monitor BP, encourage increase fluid intake. 10/15 BP low, help losartan. less paranoia but still on and off. will order hospitalist consult for leg pain 10/16 continue tx. continue tx. continue to monitor BP as it's been lowered suspect as consequence of addition of risperidone. consult to hospitalist for leg pain. 10/17: increase HS risperidone to 1 mg for ongoing psychosis, otherwise continue current mgmt. LE doppler pending. 10/18 continue tx. BP stable and tolerating medications. Reason for continued inpatient stay Substantial Risk for: inability to function Time Spent With Patient Time: Total time managing care of this patient today ____ minutes.
[2024-10-18 20:00] VITALS: BP 120/58; PULSE 67; RESP 16; TEMP 36.4; O2SAT 99
[2024-10-18] MEDS: risperiDONE 1 MG TABLET PO (21:01)
[2024-10-18] MEDS: Melatonin 3 MG TABLET 6 MG PO (21:01)
[2024-10-19] MEDS: Omeprazole 20 MG CAPSULE.DR PO (06:12)
[2024-10-19 08:00] VITALS: BP 154/67; PULSE 65; RESP 18; TEMP 36.3; O2SAT 95
[2024-10-19] MEDS: Losartan Potassium 50 MG TABLET PO (08:58)
[2024-10-19] MEDS: risperiDONE 0.5 MG TABLET PO (08:58)
[2024-10-19] MEDS: Metoprolol Succinate ER 50 MG TAB.ER.24H PO (08:58)
[2024-10-19] MEDS: Bumetanide 1 MG TABLET 2 MG PO (08:58)
[2024-10-19 20:00] VITALS: BP 143/67; PULSE 62; RESP 18; TEMP 36.6; O2SAT 96
[2024-10-19] MEDS: Melatonin 3 MG TABLET 6 MG PO (20:54)
[2024-10-19] MEDS: traZODone HCL 25 MG HALFTAB PO (20:54)
[2024-10-19] MEDS: risperiDONE 1 MG TABLET PO (20:54)
--- NOTE | 2024-10-19 23:33 | P.PNPSI_ITS ---
Subjective Subjective Date of Service: 10/19/24 Reason For Visit: delusional d/o Subjective Notes: Conditional Voluntary Interim History: Patient's case reviewed with treatment team chart reviewed patient seen. Patient has been cooperative with care some residual psych psychotic symptoms. Mental Status Exam Mental Status Exam Narrative: Patient is seen in the milieu she is using a walker. Patient has some persecutory thoughts mood described as okay no self-harming thoughts Diagnostics Vital Signs (24Hr): Vital Signs - 24 hr 10/19/24 08:00 10/19/24 20:00 Temperature 97.3 F 97.8 F Pulse Rate 65 62 Respiratory Rate 18 18 Blood Pressure 154/67 H 143/67 H Pulse Oximetry 95 96 Oxygen Delivery Method Room Air Room Air BMI result Body Mass Index 28.6 Labs 10/10/24 20:28 Imaging Radiology Impressions: ITS Impressions Knee X-Ray 10/16/24 12:50 IMPRESSION: 1. Small joint effusion. Probable 3 mm loose body. 2. 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 Electronically signed by: Seun Robles MD 10/16/2024 01:12 PM EDT Arterial/Peripheral Duplex 10/17/24 16:48 IMPRESSION: 1. Normal right leg ankle brachial index. The left cannot be calculated as segmental BP of the DP is greater than 200 systolic. 2. Scattered mild calcified atherosclerotic disease is present. There is likely mild arterial vascular disease in the left greater than right lower extremities. 3. Biphasic waveforms in the left TELECOMMUNICATION OPERATOR, suggesting possible more proximal disease. 4. No criteria for flow-limiting stenosis identified in either lower extremity. See above for details. Electronically signed by: Sriram Calloway MD 10/18/2024 09:52 AM EDT Medications Medications Current Medications Acetaminophen (Acetaminophen 325 Mg Tablet) 650 mg PO Q6H PRN PRN Reason: Headache/Pain, Scale 1-10 Last Admin: 10/16/24 08:35 Dose: 650 mg Al Hydroxide/Mg Hydroxide (Magnesium Hydrox/Alum Hydrox 30 Ml Oral.Susp) 30 ml PO Q6H PRN PRN Reason: Heartburn/Nausea Last Admin: 10/16/24 10:20 Dose: 30 ml Bumetanide (Bumetanide 1 Mg Tablet) 2 mg PO DAILY [facility]; Protocol Last Admin: 10/19/24 08:58 Dose: 2 mg Losartan Potassium (Losartan Potassium 50 Mg Tablet) 50 mg PO DAILY [facility]; Protocol Last Admin: 10/19/24 08:58 Dose: 50 mg Magnesium Hydroxide (Milk Of Magnesia 30 Ml Oral.Susp) 30 ml PO DAILY PRN PRN Reason: Constipation Melatonin (Melatonin 3 Mg Tablet) 6 mg PO BEDTIME [facility] Last Admin: 10/19/24 20:54 Dose: 6 mg Metoprolol Succinate (Metoprolol Succinate Er 50 Mg Tab.Er.24h) 50 mg PO DAILY [facility]; Protocol Last Admin: 10/19/24 08:58 Dose: 50 mg Nicotine Polacrilex (Nicotine Polacrilex 2 Mg Gum) 4 mg BUCCAL Q2H PRN PRN Reason: Nicotine Cravings Olanzapine (Olanzapine 2.5 Mg Tablet) 2.5 mg PO BID PRN PRN Reason: agitation Last Admin: 10/16/24 22:11 Dose: 2.5 mg Omeprazole (Omeprazole 20 Mg Capsule.Dr) 20 mg PO DAILY@0700 [facility] Last Admin: 10/19/24 06:12 Dose: 20 mg Risperidone (Risperidone 0.5 Mg Tablet) 0.5 mg PO DAILY [facility] Last Admin: 10/19/24 08:58 Dose: 0.5 mg Risperidone (Risperidone 1 Mg Tablet) 1 mg PO BEDTIME [facility] Last Admin: 10/19/24 20:54 Dose: 1 mg Trazodone HCl (Trazodone Hcl 25 Mg Halftab) 25 mg PO BEDTIME MRX1 PRN PRN Reason: Insomnia Last Admin: 10/19/24 20:54 Dose: 25 mg Allergies Allergies Allergy/AdvReac Type Severity Reaction Status Date / Time No Known Allergies Allergy Verified 10/17/24 20:57 Assessment & Plan Assessment & Plan (1) Schizoaffective disorder: Status: Acute Code(s): F25.9 - Schizoaffective disorder, unspecified Plan Mrs. Aldana is a 89 year-old woman who according to her daughter has a long hx of paranoid delusions and psychiatric history but they can't tell what dx she has been given. Daughter denies s/s consistent with lana or hypomania. Working dx is schizoaffective disorder. Pt apparently does not take medications consistently once discharge and rapidly decompensates. We discussed risks, benefits and alternative treatment options, restart risperidone 0.5mg po BID. 10/12 continue risperidone 0.5mg po BID, continues to present as paranoid. 10/13 continue tx. 10/14 monitor BP, encourage increase fluid intake. 10/15 BP low, help losartan. less paranoia but still on and off. will order hospitalist consult for leg pain 10/16 continue tx. continue tx. continue to monitor BP as it's been lowered suspect as consequence of addition of risperidone. consult to hospitalist for leg pain. 10/17: increase HS risperidone to 1 mg for ongoing psychosis, otherwise continue current mgmt. LE doppler pending. 10/18 continue tx. BP stable and tolerating medications. 10/19/2024 Continue plan of care monitor blood pressure monitor psychosis Informed Consent: further education needed Reason for continued inpatient stay Substantial Risk for: inability to function and rapid decompensation Time Spent With Patient Time: Total time managing care of this patient today ____ minutes.
[2024-10-20] MEDS: Omeprazole 20 MG CAPSULE.DR PO (06:14)
[2024-10-20 08:00] VITALS: BP 160/73; PULSE 71; RESP 18; TEMP 36; O2SAT 96
[2024-10-20] MEDS: Bumetanide 1 MG TABLET 2 MG PO (08:21)
[2024-10-20] MEDS: Losartan Potassium 50 MG TABLET PO (08:21)
[2024-10-20] MEDS: risperiDONE 0.5 MG TABLET PO (08:21)
[2024-10-20] MEDS: Metoprolol Succinate ER 50 MG TAB.ER.24H PO (08:21)
[2024-10-20 20:00] VITALS: BP 112/57; PULSE 65; RESP 18; TEMP 36.7; O2SAT 97
[2024-10-20] MEDS: risperiDONE 1 MG TABLET PO (20:28)
[2024-10-20] MEDS: Melatonin 3 MG TABLET 6 MG PO (20:28)
--- NOTE | 2024-10-20 22:46 | P.PNPSI_ITS ---
Subjective Subjective Date of Service: 10/20/24 Reason For Visit: delusional d/o Subjective Notes: Conditional Voluntary Interim History: Patient seen psychiatric follow-up case reviewed treatment planning. Patient remains generally stable mildly elevated blood pressure Mental Status Exam Mental Status Exam Narrative: Patient is seen in the milieu she is using a walker. Patient has some persecutory thoughts mood described as okay no self-harming thoughts Diagnostics Vital Signs (24Hr): Vital Signs - 24 hr 10/20/24 08:00 10/20/24 20:00 Temperature 96.8 F 98.1 F Pulse Rate 71 65 Respiratory Rate 18 18 Blood Pressure 160/73 H 112/57 L Pulse Oximetry 96 97 Oxygen Delivery Method Room Air Room Air BMI result Body Mass Index 28.6 Labs 10/10/24 20:28 Imaging Radiology Impressions: ITS Impressions Knee X-Ray 10/16/24 12:50 IMPRESSION: 1. Small joint effusion. Probable 3 mm loose body. 2. 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 Electronically signed by: Seun Robles MD 10/16/2024 01:12 PM EDT Arterial/Peripheral Duplex 10/17/24 16:48 IMPRESSION: 1. Normal right leg ankle brachial index. The left cannot be calculated as segmental BP of the DP is greater than 200 systolic. 2. Scattered mild calcified atherosclerotic disease is present. There is likely mild arterial vascular disease in the left greater than right lower extremities. 3. Biphasic waveforms in the left PROCESS SAFETY SPECIALIST, suggesting possible more proximal disease. 4. No criteria for flow-limiting stenosis identified in either lower extremity. See above for details. Electronically signed by: Sriram Calloway MD 10/18/2024 09:52 AM EDT Medications Medications Current Medications Acetaminophen (Acetaminophen 325 Mg Tablet) 650 mg PO Q6H PRN PRN Reason: Headache/Pain, Scale 1-10 Last Admin: 10/16/24 08:35 Dose: 650 mg Al Hydroxide/Mg Hydroxide (Magnesium Hydrox/Alum Hydrox 30 Ml Oral.Susp) 30 ml PO Q6H PRN PRN Reason: Heartburn/Nausea Last Admin: 10/16/24 10:20 Dose: 30 ml Bumetanide (Bumetanide 1 Mg Tablet) 2 mg PO DAILY [facility]; Protocol Last Admin: 10/20/24 08:21 Dose: 2 mg Losartan Potassium (Losartan Potassium 50 Mg Tablet) 50 mg PO DAILY [facility]; Protocol Last Admin: 10/20/24 08:21 Dose: 50 mg Magnesium Hydroxide (Milk Of Magnesia 30 Ml Oral.Susp) 30 ml PO DAILY PRN PRN Reason: Constipation Melatonin (Melatonin 3 Mg Tablet) 6 mg PO BEDTIME [facility] Last Admin: 10/20/24 20:28 Dose: 6 mg Metoprolol Succinate (Metoprolol Succinate Er 50 Mg Tab.Er.24h) 50 mg PO DAILY [facility]; Protocol Last Admin: 10/20/24 08:21 Dose: 50 mg Nicotine Polacrilex (Nicotine Polacrilex 2 Mg Gum) 4 mg BUCCAL Q2H PRN PRN Reason: Nicotine Cravings Olanzapine (Olanzapine 2.5 Mg Tablet) 2.5 mg PO BID PRN PRN Reason: agitation Last Admin: 10/16/24 22:11 Dose: 2.5 mg Omeprazole (Omeprazole 20 Mg Capsule.Dr) 20 mg PO DAILY@0700 [facility] Last Admin: 10/20/24 06:14 Dose: 20 mg Risperidone (Risperidone 0.5 Mg Tablet) 0.5 mg PO DAILY [facility] Last Admin: 10/20/24 08:21 Dose: 0.5 mg Risperidone (Risperidone 1 Mg Tablet) 1 mg PO BEDTIME [facility] Last Admin: 10/20/24 20:28 Dose: 1 mg Trazodone HCl (Trazodone Hcl 25 Mg Halftab) 25 mg PO BEDTIME MRX1 PRN PRN Reason: Insomnia Last Admin: 10/19/24 20:54 Dose: 25 mg Allergies Allergies Allergy/AdvReac Type Severity Reaction Status Date / Time No Known Allergies Allergy Verified 10/17/24 20:57 Assessment & Plan Assessment & Plan (1) Schizoaffective disorder: Status: Acute Code(s): F25.9 - Schizoaffective disorder, unspecified Plan Mrs. Aldana is a 89 year-old woman who according to her daughter has a long hx of paranoid delusions and psychiatric history but they can't tell what dx she has been given. Daughter denies s/s consistent with lana or hypomania. Working dx is schizoaffective disorder. Pt apparently does not take medications consistently once discharge and rapidly decompensates. We discussed risks, benefits and alternative treatment options, restart risperidone 0.5mg po BID. 10/12 continue risperidone 0.5mg po BID, continues to present as paranoid. 10/13 continue tx. 10/14 monitor BP, encourage increase fluid intake. 10/15 BP low, help losartan. less paranoia but still on and off. will order hospitalist consult for leg pain 10/16 continue tx. continue tx. continue to monitor BP as it's been lowered suspect as consequence of addition of risperidone. consult to hospitalist for leg pain. 10/17: increase HS risperidone to 1 mg for ongoing psychosis, otherwise continue current mgmt. LE doppler pending. 10/18 continue tx. BP stable and tolerating medications. 10/19/2024 Continue plan of care monitor blood pressure monitor psychosis 10/20/2024 Continue plan of care discharge planning Reason for continued inpatient stay Substantial Risk for: inability to function and rapid decompensation Time Spent With Patient Time: Total time managing care of this patient today ____ minutes.
[2024-10-21] MEDS: Omeprazole 20 MG CAPSULE.DR PO (06:36)
[2024-10-21 08:54] VITALS: BP 139/61; PULSE 64; RESP 18; TEMP 36.1; O2SAT 97
[2024-10-21] MEDS: risperiDONE 0.5 MG TABLET PO (09:01)
[2024-10-21] MEDS: Bumetanide 1 MG TABLET 2 MG PO (09:01)
[2024-10-21] MEDS: Losartan Potassium 50 MG TABLET PO (09:01)
[2024-10-21] MEDS: Metoprolol Succinate ER 50 MG TAB.ER.24H PO (09:02)
[2024-10-21] MEDS: Milk of Magnesia 30 ML ORAL.SUSP PO (10:05)
--- NOTE | 2024-10-21 11:41 | P.CONHOSP_ITS ---
History of Present Illness Data of Consult Service Date: 10/21/24 Requesting physician: Little Parr Primary Care Provider: Unknown Physician HPI Reason for consult: Right flank pain 89-year-old [place]ian-speaking female with history of hypertension and schizoaffective disorder admitted to Geriatric Psychiatry with consult placed hospitalist service for evaluation of right flank pain. History obtained with the assistance of [place]ian magazine publisher who was present during exam. She is reporting 3 days right upper quadrant pain radiating to the right flank. Denies any associated fevers, chills, nausea, vomiting, diarrhea, dysuria, hematuria, urinary retention. She does endorse a history of nephrolithiasis with similar sensation. Vital signs of unstable, no fevers. [facility] Medical History (Updated 10/21/24 @ 11:57 by IRENE Gutierrez) Schizoaffective disorder Nephrolithiasis Hypertension Social History Household Members: Unknown / Unable to assess Housing: Apartment Do you presently have visiting nurse or other home services: No (unable to answer) Patient Tobacco Use Status: Never used Tobacco Smoked in Last 30 Days: No e-Cigarette/Vaping Use: Never Used Patient Interested in Nicotine Replacement: No Patient Given Instructions on How to Stop Smoking: No Second Hand Smoke Exposure: No Use of substances other than those prescribed or required for medical reasons: No Currently Displaying Signs/Symptoms of Drug Intoxication Withdrawal: No Advance Directives: No Advance Directives Information Provided: No Do you have thoughts of harming others: None Do you have a plan to hurt others: No Plan Recently lost weight without trying: Unsure Nutrition Risks: No Nutritional Risk Patient : No : No Poor oral hygiene: Yes (Missing teeth) service: No Sexual orientation: Straight/Heterosexual Meds Allergies Allergy/AdvReac Type Severity Reaction Status Date / Time No Known Allergies Allergy Verified 10/17/24 20:57 Active Medications: Current Medications Acetaminophen (Acetaminophen 325 Mg Tablet) 650 mg PO Q6H PRN PRN Reason: Headache/Pain, Scale 1-10 Last Admin: 10/16/24 08:35 Dose: 650 mg Al Hydroxide/Mg Hydroxide (Magnesium Hydrox/Alum Hydrox 30 Ml Oral.Susp) 30 ml PO Q6H PRN PRN Reason: Heartburn/Nausea Last Admin: 10/16/24 10:20 Dose: 30 ml Bumetanide (Bumetanide 1 Mg Tablet) 2 mg PO DAILY [facility]; Protocol Last Admin: 10/21/24 09:01 Dose: 2 mg Losartan Potassium (Losartan Potassium 50 Mg Tablet) 50 mg PO DAILY [facility]; Protocol Last Admin: 10/21/24 09:01 Dose: 50 mg Magnesium Hydroxide (Milk Of Magnesia 30 Ml Oral.Susp) 30 ml PO DAILY PRN PRN Reason: Constipation Last Admin: 10/21/24 10:05 Dose: 30 ml Melatonin (Melatonin 3 Mg Tablet) 6 mg PO BEDTIME [facility] Last Admin: 10/20/24 20:28 Dose: 6 mg Metoprolol Succinate (Metoprolol Succinate Er 50 Mg Tab.Er.24h) 50 mg PO DAILY [facility]; Protocol Last Admin: 10/21/24 09:02 Dose: 50 mg Nicotine Polacrilex (Nicotine Polacrilex 2 Mg Gum) 4 mg BUCCAL Q2H PRN PRN Reason: Nicotine Cravings Olanzapine (Olanzapine 2.5 Mg Tablet) 2.5 mg PO BID PRN PRN Reason: agitation Last Admin: 10/16/24 22:11 Dose: 2.5 mg Omeprazole (Omeprazole 20 Mg Capsule.Dr) 20 mg PO DAILY@0700 [facility] Last Admin: 10/21/24 06:36 Dose: 20 mg Risperidone (Risperidone 0.5 Mg Tablet) 0.5 mg PO DAILY [facility] Last Admin: 10/21/24 09:01 Dose: 0.5 mg Risperidone (Risperidone 1 Mg Tablet) 1 mg PO BEDTIME [facility] Last Admin: 10/20/24 20:28 Dose: 1 mg Trazodone HCl (Trazodone Hcl 25 Mg Halftab) 25 mg PO BEDTIME MRX1 PRN PRN Reason: Insomnia Last Admin: 10/19/24 20:54 Dose: 25 mg Home Medications ?Medication ?Instructions ?Recorded ?Confirmed ?Last Taken ?Type diphenhydramine HCl 25 mg capsule 25 mg PO QID PRN Itching 10/10/24 10/11/24 Unknown History (Benadryl) losartan 50 mg tablet 50 mg PO DAILY blood pressure 10/10/24 10/10/24 Unknown History metoprolol succinate 50 mg 50 mg PO DAILY blood pressure 10/10/24 10/10/24 Unknown History tablet,extended release 24 hr risperidone 0.5 mg tablet 0.25 mg PO Q6H PRN Psychosis 10/10/24 10/10/24 Unknown History risperidone 0.5 mg tablet 0.5 mg PO BEDTIME psychosis 10/10/24 10/10/24 Unknown History bumetanide 2 mg tablet 2 mg PO DAILY 10/11/24 10/11/24 Unknown History Physical Exam 2 Vital Signs and Narrative: Vital Signs: Last Vital Signs Temp 97.0 F 10/21/24 08:54 Pulse 64 10/21/24 08:54 Resp 18 10/21/24 08:54 BP 139/61 10/21/24 08:54 Pulse Ox 97 10/21/24 08:54 O2 Del Method Room Air 10/21/24 08:54 BMI result Body Mass Index 28.6 Constitutional - Awake and Alert, No apparent distress Eyes - PERRLA, EOMI Cardiovascular - S1S2, RRR, No edema Respiratory - Normal lung expansion, Normal respiratory effort, No respiratory distress, CTA bilaterally Gastrointestinal - mild right upper quadrant pain without any guarding or rebound. Negative Malone's sign. ND; +BS - mild right-sided CVA tenderness Extremities - no calf tenderness bilaterally, no swelling Skin - Warm/Dry Results Labs 10/10/24 20:28 Assessment and Plan (1) Right flank pain: Status: Acute Plan 89-year-old Bolivian-speaking female with history of hypertension and schizoaffective disorder admitted to Geriatric Psychiatry with consult placed hospitalist service for evaluation of right flank pain. History obtained with the assistance of [place] magazine publisher who was present during exam. #RUQ pain radiating to R flank -Check UA for any hematuria. Low suspicion for UTI. Straight cath ordered in case patient unable to collect -Check BMP to evaluate for any PRABHAKAR r/t obstruction. Hepatic panel also ordered given RUQ pain -CT abd/pelvis ordered to evaluate for any acute intrabdominal pathology that could be causing patient's symptoms such as nephrolithiasis Will continue following for results
--- NOTE | 2024-10-21 12:10 | HO.PSYCHPN ---
Subjective Subjective Date of Service: 10/21/24 Reason For Visit: delusional d/o Subjective Notes: Conditional Voluntary Healthcare Proxy: Yes Interim History: Pt slept through the night. She reports man and girl only hears them at night. She reports no one is able to see them because they wear a cover that makes them invisible. She denies SI/HI. She is tolerating medications well. She reports right side, flank pain- hospitalist consult ordered. VS stable, no dizziness, tolerating risperidone. plan for MONACO. Review of Systems Review of Systems Pt denies SOB, chest pain. She reports difficulty walking, ambulates with walker. Denies diarrhea or loose stools. Mental Status Exam Mental Status Exam Narrative: Appearance: wearing hospital gown, ambulating with walker, in NAD behavior: cooperative Psychomotor: no agitation or retardation noted Speech: (assess with assistance of mines safety engineer) mostly clear, regular rate/rhythm, spontaneous TP: some loose associations TC: worried that someone is trying to harm her, even here on the unit Mood: good Affect: somewhat anxious seems related to paranoid delusions SI: denies HI: denies VH/AH: appears internally preoccupied, although when asked, denies it Delusions: paranoid/persecutory delusions Insight/judgment: limited x 2 Memory/cog: alert, knows she is in the hospital, knows month, year, thinks she is in the hospital because of back pain, despite being able to tell this teletypewriter operator she is in mental health unit. Diagnostics Vital Signs (24Hr): Vital Signs - 24 hr 10/20/24 20:00 10/21/24 08:54 Temperature 98.1 F 97.0 F Pulse Rate 65 64 Respiratory Rate 18 18 Blood Pressure 112/57 L 139/61 Pulse Oximetry 97 97 Oxygen Delivery Method Room Air Room Air BMI result Body Mass Index 28.6 Labs 10/21/24 12:21 10/21/24 12:21 Imaging Radiology Impressions: ITS Impressions Knee X-Ray 10/16/24 12:50 IMPRESSION: 1. Small joint effusion. Probable 3 mm loose body. 2. 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 Electronically signed by: Seun Robles MD 10/16/2024 01:12 PM EDT Arterial/Peripheral Duplex 10/17/24 16:48 IMPRESSION: 1. Normal right leg ankle brachial index. The left cannot be calculated as segmental BP of the DP is greater than 200 systolic. 2. Scattered mild calcified atherosclerotic disease is present. There is likely mild arterial vascular disease in the left greater than right lower extremities. 3. Biphasic waveforms in the left MIXING PLANT OPERATOR, suggesting possible more proximal disease. 4. No criteria for flow-limiting stenosis identified in either lower extremity. See above for details. Electronically signed by: Sriram Calloway MD 10/18/2024 09:52 AM EDT Medications Medications Current Medications Acetaminophen (Acetaminophen 325 Mg Tablet) 650 mg PO Q6H PRN PRN Reason: Headache/Pain, Scale 1-10 Last Admin: 10/16/24 08:35 Dose: 650 mg Al Hydroxide/Mg Hydroxide (Magnesium Hydrox/Alum Hydrox 30 Ml Oral.Susp) 30 ml PO Q6H PRN PRN Reason: Heartburn/Nausea Last Admin: 10/16/24 10:20 Dose: 30 ml Bumetanide (Bumetanide 1 Mg Tablet) 2 mg PO DAILY EDGARD; Protocol Last Admin: 10/21/24 09:01 Dose: 2 mg Losartan Potassium (Losartan Potassium 50 Mg Tablet) 50 mg PO DAILY EDGARD; Protocol Last Admin: 10/21/24 09:01 Dose: 50 mg Magnesium Hydroxide (Milk Of Magnesia 30 Ml Oral.Susp) 30 ml PO DAILY PRN PRN Reason: Constipation Last Admin: 10/21/24 10:05 Dose: 30 ml Melatonin (Melatonin 3 Mg Tablet) 6 mg PO BEDTIME EDGARD Last Admin: 10/20/24 20:28 Dose: 6 mg Metoprolol Succinate (Metoprolol Succinate Er 50 Mg Tab.Er.24h) 50 mg PO DAILY EDGARD; Protocol Last Admin: 10/21/24 09:02 Dose: 50 mg Nicotine Polacrilex (Nicotine Polacrilex 2 Mg Gum) 4 mg BUCCAL Q2H PRN PRN Reason: Nicotine Cravings Olanzapine (Olanzapine 2.5 Mg Tablet) 2.5 mg PO BID PRN PRN Reason: agitation Last Admin: 10/16/24 22:11 Dose: 2.5 mg Omeprazole (Omeprazole 20 Mg Capsule.Dr) 20 mg PO DAILY@0700 [facility] Last Admin: 10/21/24 06:36 Dose: 20 mg Risperidone (Risperidone 0.5 Mg Tablet) 0.5 mg PO DAILY [facility] Last Admin: 10/21/24 09:01 Dose: 0.5 mg Risperidone (Risperidone 1 Mg Tablet) 1 mg PO BEDTIME EDGARD Last Admin: 10/20/24 20:28 Dose: 1 mg Trazodone HCl (Trazodone Hcl 25 Mg Halftab) 25 mg PO BEDTIME MRX1 PRN PRN Reason: Insomnia Last Admin: 10/19/24 20:54 Dose: 25 mg Allergies Allergies Allergy/AdvReac Type Severity Reaction Status Date / Time No Known Allergies Allergy Verified 10/17/24 20:57 Assessment & Plan Assessment & Plan (1) Schizoaffective disorder: Status: Acute Code(s): F25.9 - Schizoaffective disorder, unspecified Plan Mrs. Aldana is a 89 year-old woman who according to her daughter has a long hx of paranoid delusions and psychiatric history but they can't tell what dx she has been given. Daughter denies s/s consistent with lana or hypomania. Working dx is schizoaffective disorder. Pt apparently does not take medications consistently once discharge and rapidly decompensates. We discussed risks, benefits and alternative treatment options, restart risperidone 0.5mg po BID. 10/12 continue risperidone 0.5mg po BID, continues to present as paranoid. 10/13 continue tx. 10/14 monitor BP, encourage increase fluid intake. 10/15 BP low, help losartan. less paranoia but still on and off. will order hospitalist consult for leg pain 10/16 continue tx. continue tx. continue to monitor BP as it's been lowered suspect as consequence of addition of risperidone. consult to hospitalist for leg pain. 10/17: increase HS risperidone to 1 mg for ongoing psychosis, otherwise continue current mgmt. LE doppler pending. 10/18 continue tx. BP stable and tolerating medications. 10/19/2024 Continue plan of care monitor blood pressure monitor psychosis 10/20/2024 Continue plan of care discharge planning 10/21 continue current plan, ordered consult for hospitalist right side flank pain. Reason for continued inpatient stay Substantial Risk for: inability to function and rapid decompensation Time Spent With Patient Time: Total time managing care of this patient today ____ minutes.
[2024-10-21 12:23] LABS: Appearance Urine Cloudy; Color Urine Yellow; Glucose Urine UA Negative (Negative); Leukocyte Esterase Urine Large (3+) (Negative); Nitrite Urine Negative (Negative); UMIC TRIGGER UACC YES; Urine Blood Negative (Negative); Urine Ketones Negative (Negative); Urine Protein Negative (Neg-Trace)
[2024-10-21 12:25] LABS: MANUAL DIFF FLAG NO
[2024-10-21 12:25] LABS: Bacteria Urine 3+ (None Seen); Hyaline Casts Urine 0-2 /LPF (0-2); RBC Urine 0-2 /HPF (0-2); UACC Culture Trigger YES; WBC Urine >50 /HPF (0-5)
[2024-10-21 12:32] LABS: Basophils Percent Auto 0.3 % (0-2); Eosinophils Absolute Auto 0.4 X10*3/uL (0.0-0.4); Eosinophils Percent Auto 4.6 % (0-4); Hematocrit 38.6 % (37.0-47.0); Hemoglobin 12.4 g/dl (12.0-16.0); Imm Gran Abs Auto 0.07 X10*3/uL (0.00-0.03); Imm Gran Pct Auto 0.9 % (0.0-0.4); Lymphocytes Absolute Auto 1.8 X10*3/uL (1.2-4.9); Lymphocytes Percent Auto 23.1 % (20-40); Mean Corpuscular HGB Conc 32.1 g/dl (31.0-35.0); Mean Corpuscular Hemoglobin 27.3 pg (27.0-33.0); Mean Platelet Volume 9.3 fL (9.4-12.3); Monocytes Absolute Auto 0.9 X10*3/uL (0.1-1.2); Monocytes Percent Auto 11.6 % (2-11); Neutrophils Absolute Auto 4.5 x10*3/uL (2.0-8.3); Neutrophils Percent Auto 59.5 % (45-73); Platelet Count 311 X10*3/uL (160-400); Red Blood Count 4.54 X10*6/uL (4.20-5.50); Red Cell Distribution Width 14.9 % (11.0-16.0); White Blood Count 7.6 X10*3/uL (4.8-10.8)
[2024-10-21 12:47] LABS: Alanine Aminotransferase 9 U/L (0-31); Albumin Level 3.8 g/dL (3.5-5.0); Alkaline Phosphatase 67 U/L (39-117); Anion Gap 12 (12-20); Aspartate Amino Transferase 22 U/L (5-31); Bilirubin Direct 0.1 mg/dL (0.0-0.5); Bilirubin Total 0.3 mg/dL (0.0-1.0); Blood Urea Nitrogen 40 mg/dL (9-16); Calcium 10.3 mg/dL (8.4-10.2); Carbon Dioxide 28 mmol/L (22-29); Chloride 106 mmol/L (96-108); Creatinine Clr Calc Pharmacy 36.9; Estimated Glomerular Filt Rate 53; Glucose Random 105 mg/dL (60-115); Potassium 4.7 mmol/L (3.3-5.1); Sodium 141 mmol/L (135-145); Total Protein 8.1 g/dL (6.5-8.0)
[2024-10-21 12:48] LABS: Alanine Aminotransferase 10 U/L (0-31); Albumin Level 3.8 g/dL (3.5-5.0); Alkaline Phosphatase 72 U/L (39-117); Anion Gap 13 (12-20); Aspartate Amino Transferase 20 U/L (5-31); Bilirubin Total 0.3 mg/dL (0.0-1.0); Blood Urea Nitrogen 40 mg/dL (9-16); Calcium 10.3 mg/dL (8.4-10.2); Carbon Dioxide 28 mmol/L (22-29); Chloride 105 mmol/L (96-108); Creatinine Clr Calc Pharmacy 39.3; Estimated Glomerular Filt Rate 57; Glucose Random 105 mg/dL (60-115); Potassium 4.6 mmol/L (3.3-5.1); Sodium 141 mmol/L (135-145)
[2024-10-21] MEDS: cefuroxime axetiL 250 MG TABLET PO (18:06)
[2024-10-21 20:00] VITALS: BP 114/56; PULSE 63; TEMP 35.8; O2SAT 99
[2024-10-21] MEDS: Melatonin 3 MG TABLET 6 MG PO (20:35)
[2024-10-21] MEDS: risperiDONE 1 MG TABLET PO (20:35)
[2024-10-21] MEDS: traZODone HCL 25 MG HALFTAB PO (23:50)
[2024-10-22] MEDS: cefuroxime axetiL 250 MG TABLET PO ×2 (06:15→18:30)
[2024-10-22] MEDS: Omeprazole 20 MG CAPSULE.DR PO (06:15)
[2024-10-22 07:55] VITALS: BP 124/60; PULSE 79; RESP 18; TEMP 36.6; O2SAT 98
[2024-10-22] MEDS: Bumetanide 1 MG TABLET 2 MG PO (08:20)
[2024-10-22] MEDS: Losartan Potassium 50 MG TABLET PO (08:20)
[2024-10-22] MEDS: Metoprolol Succinate ER 50 MG TAB.ER.24H PO (08:20)
[2024-10-22] MEDS: risperiDONE 0.5 MG TABLET PO (08:20)
[2024-10-22] MEDS: Acetaminophen 325 MG TABLET 650 MG PO (18:54)
--- NOTE | 2024-10-22 19:08 | P.PNPSI_ITS ---
Subjective Subjective Date of Service: 10/22/24 Reason For Visit: delusional d/o Subjective Notes: Conditional Voluntary Interim History: Pt slept through the night. Pt continues to report man and girl talking at night, it seems than less than before but she continues to bring this up along with idea that her family is involved in plan to hurt her. We had family meeting with son, Willie, we discussed discharge on Monday with Long acting injection. Pt is eating and visible during the day. She reports less pain on right side Review of Systems Review of Systems Pt denies SOB, chest pain. She reports difficulty walking, ambulates with walker. Denies diarrhea or loose stools. Mental Status Exam Mental Status Exam Narrative: Appearance: wearing hospital gown, ambulating with walker, in NAD behavior: cooperative Psychomotor: no agitation or retardation noted Speech: (assess with assistance of charter bus driver) mostly clear, regular rate/rhythm, spontaneous TP: some loose associations TC: worried that someone is trying to harm her, even here on the unit Mood: good Affect: somewhat anxious seems related to paranoid delusions SI: denies HI: denies VH/AH: appears internally preoccupied, although when asked, denies it Delusions: paranoid/persecutory delusions Insight/judgment: limited x 2 Memory/cog: alert, knows she is in the hospital, knows month, year, thinks she is in the hospital because of back pain, despite being able to tell this technical writer and editor she is in mental health unit. Diagnostics Vital Signs (24Hr): Vital Signs - 24 hr 10/21/24 20:00 10/22/24 07:55 Temperature 96.4 F L 97.8 F Pulse Rate 63 79 Respiratory Rate 18 Blood Pressure 114/56 L 124/60 Pulse Oximetry 99 98 Oxygen Delivery Method Room Air Room Air BMI result Body Mass Index 28.6 Labs 10/21/24 12:21 10/23/24 10:54 Labs: Laboratory Results - last 48 hr 10/21/24 10/21/24 10/21/24 12:05 12:21 12:21 WBC 7.6 RBC 4.54 Hgb 12.4 Hct 38.6 MCV 85.0 MCH 27.3 MCHC 32.1 RDW 14.9 Plt Count 311 MPV 9.3 L Immature Gran % (Auto) 0.9 H Neut % (Auto) 59.5 Lymph % (Auto) 23.1 Brown % (Auto) 11.6 H Eos % (Auto) 4.6 H Baso % (Auto) 0.3 Lymph # (Auto) 1.8 Brown # (Auto) 0.9 Eos # (Auto) 0.4 Baso # (Auto) 0.0 Abs Immat Gran (auto) 0.07 H Absolute Neuts (auto) 4.5 Absolute Nucleated RBC 0.000 Nucleated RBC % (auto) 0.0 Sodium 141 141 Potassium 4.6 D Chloride Carbon Dioxide Anion Gap BUN Creatinine Estim Creat Clear Calc Estimated GFR Random Glucose Calcium Total Bilirubin Direct Bilirubin AST ALT Alkaline Phosphatase Total Protein Albumin Urine Color Yellow Urine Appearance Cloudy Urine pH 7.0 Ur Specific [place] 1.010 Urine Protein Negative Urine Glucose (UA) Negative Urine Ketones Negative Urine Blood Negative Urine Nitrite Negative Ur Leukocyte Esterase Large (3+) H Urine RBC 0-2 Urine WBC >50 H Ur Squamous Epith Cells 11-20 Urine Bacteria 3+ Hyaline Casts 0-2 10/21/24 10/21/24 10/21/24 12:21 12:21 12:21 WBC RBC Hgb Hct MCV MCH MCHC RDW Plt Count MPV Immature Gran % (Auto) Neut % (Auto) Lymph % (Auto) Brown % (Auto) Eos % (Auto) Baso % (Auto) Lymph # (Auto) Brown # (Auto) Eos # (Auto) Baso # (Auto) Abs Immat Gran (auto) Absolute Neuts (auto) Absolute Nucleated RBC Nucleated RBC % (auto) Sodium Potassium 4.7 Chloride 105 106 Carbon Dioxide 28 28 Anion Gap 13 BUN Creatinine Estim Creat Clear Calc Estimated GFR Random Glucose Calcium Total Bilirubin Direct Bilirubin AST ALT Alkaline Phosphatase Total Protein Albumin Urine Color Urine Appearance Urine pH Ur Specific [place] Urine Protein Urine Glucose (UA) Urine Ketones Urine Blood Urine Nitrite Ur Leukocyte Esterase Urine RBC Urine WBC Ur Squamous Epith Cells Urine Bacteria Hyaline Casts 10/21/24 10/21/24 10/21/24 12:21 12:21 12:21 WBC RBC Hgb Hct MCV MCH MCHC RDW Plt Count MPV Immature Gran % (Auto) Neut % (Auto) Lymph % (Auto) Brown % (Auto) Eos % (Auto) Baso % (Auto) Lymph # (Auto) Brown # (Auto) Eos # (Auto) Baso # (Auto) Abs Immat Gran (auto) Absolute Neuts (auto) Absolute Nucleated RBC Nucleated RBC % (auto) Sodium Potassium Chloride Carbon Dioxide Anion Gap 12 BUN 40 H 40 H Creatinine 0.93 0.99 Estim Creat Clear Calc 39.3 Estimated GFR Random Glucose Calcium Total Bilirubin Direct Bilirubin AST ALT Alkaline Phosphatase Total Protein Albumin Urine Color Urine Appearance Urine pH Ur Specific [place] Urine Protein Urine Glucose (UA) Urine Ketones Urine Blood Urine Nitrite Ur Leukocyte Esterase Urine RBC Urine WBC Ur Squamous Epith Cells Urine Bacteria Hyaline Casts 10/21/24 10/21/24 10/21/24 12:21 12:21 12:21 WBC RBC Hgb Hct MCV MCH MCHC RDW Plt Count MPV Immature Gran % (Auto) Neut % (Auto) Lymph % (Auto) Brown % (Auto) Eos % (Auto) Baso % (Auto) Lymph # (Auto) Brown # (Auto) Eos # (Auto) Baso # (Auto) Abs Immat Gran (auto) Absolute Neuts (auto) Absolute Nucleated RBC Nucleated RBC % (auto) Sodium Potassium Chloride Carbon Dioxide Anion Gap BUN Creatinine Estim Creat Clear Calc 36.9 Estimated GFR 57 53 Random Glucose 105 105 Calcium 10.3 H D Total Bilirubin Direct Bilirubin AST ALT Alkaline Phosphatase Total Protein Albumin Urine Color Urine Appearance Urine pH Ur Specific [place] Urine Protein Urine Glucose (UA) Urine Ketones Urine Blood Urine Nitrite Ur Leukocyte Esterase Urine RBC Urine WBC Ur Squamous Epith Cells Urine Bacteria Hyaline Casts 10/21/24 10/21/24 10/21/24 12:21 12:21 12:21 WBC RBC Hgb Hct MCV MCH MCHC RDW Plt Count MPV Immature Gran % (Auto) Neut % (Auto) Lymph % (Auto) Brown % (Auto) Eos % (Auto) Baso % (Auto) Lymph # (Auto) Brown # (Auto) Eos # (Auto) Baso # (Auto) Abs Immat Gran (auto) Absolute Neuts (auto) Absolute Nucleated RBC Nucleated RBC % (auto) Sodium Potassium Chloride Carbon Dioxide Anion Gap BUN Creatinine Estim Creat Clear Calc Estimated GFR Random Glucose Calcium 10.3 H Total Bilirubin 0.3 0.3 Direct Bilirubin 0.1 AST 20 22 ALT 10 Alkaline Phosphatase Total Protein Albumin Urine Color Urine Appearance Urine pH Ur Specific [place] Urine Protein Urine Glucose (UA) Urine Ketones Urine Blood Urine Nitrite Ur Leukocyte Esterase Urine RBC Urine WBC Ur Squamous Epith Cells Urine Bacteria Hyaline Casts 10/21/24 10/21/24 10/21/24 12:21 12:21 12:21 WBC RBC Hgb Hct MCV MCH MCHC RDW Plt Count MPV Immature Gran % (Auto) Neut % (Auto) Lymph % (Auto) Brown % (Auto) Eos % (Auto) Baso % (Auto) Lymph # (Auto) Brown # (Auto) Eos # (Auto) Baso # (Auto) Abs Immat Gran (auto) Absolute Neuts (auto) Absolute Nucleated RBC Nucleated RBC % (auto) Sodium Potassium Chloride Carbon Dioxide Anion Gap BUN Creatinine Estim Creat Clear Calc Estimated GFR Random Glucose Calcium Total Bilirubin Direct Bilirubin AST ALT 9 Alkaline Phosphatase 72 67 Total Protein 8.0 8.1 H Albumin 3.8 Urine Color Urine Appearance Urine pH Ur Specific [place] Urine Protein Urine Glucose (UA) Urine Ketones Urine Blood Urine Nitrite Ur Leukocyte Esterase Urine RBC Urine WBC Ur Squamous Epith Cells Urine Bacteria Hyaline Casts 10/21/24 12:21 WBC RBC Hgb Hct MCV MCH MCHC RDW Plt Count MPV Immature Gran % (Auto) Neut % (Auto) Lymph % (Auto) Brown % (Auto) Eos % (Auto) Baso % (Auto) Lymph # (Auto) Brown # (Auto) Eos # (Auto) Baso # (Auto) Abs Immat Gran (auto) Absolute Neuts (auto) Absolute Nucleated RBC Nucleated RBC % (auto) Sodium Potassium Chloride Carbon Dioxide Anion Gap BUN Creatinine Estim Creat Clear Calc Estimated GFR Random Glucose Calcium Total Bilirubin Direct Bilirubin AST ALT Alkaline Phosphatase Total Protein Albumin 3.8 Urine Color Urine Appearance Urine pH Ur Specific [place] Urine Protein Urine Glucose (UA) Urine Ketones Urine Blood Urine Nitrite Ur Leukocyte Esterase Urine RBC Urine WBC Ur Squamous Epith Cells Urine Bacteria Hyaline Casts Imaging Radiology Impressions: ITS Impressions Knee X-Ray 10/16/24 12:50 IMPRESSION: 1. Small joint effusion. Probable 3 mm loose body. 2. 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 Electronically signed by: Seun Robles MD 10/16/2024 01:12 PM EDT Arterial/Peripheral Duplex 10/17/24 16:48 IMPRESSION: 1. Normal right leg ankle brachial index. The left cannot be calculated as segmental BP of the DP is greater than 200 systolic. 2. Scattered mild calcified atherosclerotic disease is present. There is likely mild arterial vascular disease in the left greater than right lower extremities. 3. Biphasic waveforms in the left PHOTOGRAPHIC EQUIPMENT INSPECTOR, suggesting possible more proximal disease. 4. No criteria for flow-limiting stenosis identified in either lower extremity. See above for details. Electronically signed by: Sriram Calloway MD 10/18/2024 09:52 AM EDT RP Abdomen/Pelvis CT 10/21/24 14:58 IMPRESSION: 1. No evidence of nephrolithiasis or ureteral obstruction. 2. Small hiatal hernia. Small fat-containing umbilical hernia. Electronically signed by: Seun Robles MD 10/21/2024 03:42 PM EDT RP Medications Medications Current Medications Acetaminophen (Acetaminophen 325 Mg Tablet) 650 mg PO Q6H PRN PRN Reason: Headache/Pain, Scale 1-10 Last Admin: 10/22/24 18:54 Dose: 650 mg Al Hydroxide/Mg Hydroxide (Magnesium Hydrox/Alum Hydrox 30 Ml Oral.Susp) 30 ml PO Q6H PRN PRN Reason: Heartburn/Nausea Last Admin: 10/16/24 10:20 Dose: 30 ml Bumetanide (Bumetanide 1 Mg Tablet) 2 mg PO DAILY EDGARD; Protocol Last Admin: 10/22/24 08:20 Dose: 2 mg Cefuroxime Axetil (Cefuroxime Axetil 250 Mg Tablet) 250 mg PO Q12H [facility]ARD Stop: 10/26/24 06:01 Last Admin: 10/22/24 18:30 Dose: 250 mg Losartan Potassium (Losartan Potassium 50 Mg Tablet) 50 mg PO DAILY EDGARD; Protocol Last Admin: 10/22/24 08:20 Dose: 50 mg Magnesium Hydroxide (Milk Of Magnesia 30 Ml Oral.Susp) 30 ml PO DAILY PRN PRN Reason: Constipation Last Admin: 10/21/24 10:05 Dose: 30 ml Melatonin (Melatonin 3 Mg Tablet) 6 mg PO BEDTIME EDGARD Last Admin: 10/21/24 20:35 Dose: 6 mg Metoprolol Succinate (Metoprolol Succinate Er 50 Mg Tab.Er.24h) 50 mg PO DAILY EDGARD; Protocol Last Admin: 10/22/24 08:20 Dose: 50 mg Nicotine Polacrilex (Nicotine Polacrilex 2 Mg Gum) 4 mg BUCCAL Q2H PRN PRN Reason: Nicotine Cravings Olanzapine (Olanzapine 2.5 Mg Tablet) 2.5 mg PO BID PRN PRN Reason: agitation Last Admin: 10/16/24 22:11 Dose: 2.5 mg Omeprazole (Omeprazole 20 Mg Capsule.) 20 mg PO DAILY@0700 [facility] Last Admin: 10/22/24 06:15 Dose: 20 mg Risperidone (Risperidone 0.5 Mg Tablet) 0.5 mg PO DAILY [facility] Last Admin: 10/22/24 08:20 Dose: 0.5 mg Risperidone (Risperidone 1 Mg Tablet) 1 mg PO BEDTIME [facility] Last Admin: 10/21/24 20:35 Dose: 1 mg Trazodone HCl (Trazodone Hcl 25 Mg Halftab) 25 mg PO BEDTIME MRX1 PRN PRN Reason: Insomnia Last Admin: 10/21/24 23:50 Dose: 25 mg Allergies Allergies Allergy/AdvReac Type Severity Reaction Status Date / Time No Known Allergies Allergy Verified 10/17/24 20:57 Assessment & Plan Assessment & Plan (1) Schizoaffective disorder: Status: Acute Code(s): F25.9 - Schizoaffective disorder, unspecified Plan Mrs. Aldana is a 89 year-old woman who according to her daughter has a long hx of paranoid delusions and psychiatric history but they can't tell what dx she has been given. Daughter denies s/s consistent with lana or hypomania. Working dx is schizoaffective disorder. Pt apparently does not take medications consistently once discharge and rapidly decompensates. We discussed risks, benefits and alternative treatment options, restart risperidone 0.5mg po BID. 10/12 continue risperidone 0.5mg po BID, continues to present as paranoid. 10/13 continue tx. 10/14 monitor BP, encourage increase fluid intake. 10/15 BP low, help losartan. less paranoia but still on and off. will order hospitalist consult for leg pain 10/16 continue tx. continue tx. continue to monitor BP as it's been lowered suspect as consequence of addition of risperidone. consult to hospitalist for leg pain. 10/17: increase HS risperidone to 1 mg for ongoing psychosis, otherwise continue current mgmt. LE doppler pending. 10/18 continue tx. BP stable and tolerating medications. 10/19/2024 Continue plan of care monitor blood pressure monitor psychosis 10/20/2024 Continue plan of care discharge planning 10/21 continue current plan, ordered consult for hospitalist right side flank pain. 10/22 continue tx. plan to do MONACO of uzedy Reason for continued inpatient stay Substantial Risk for: inability to function Time Spent With Patient Time: Total time managing care of this patient today ____ minutes.
[2024-10-22 19:55] VITALS: BP 94/55; PULSE 70; TEMP 36.4; O2SAT 99
[2024-10-22] MEDS: risperiDONE 1 MG TABLET PO (20:04)
[2024-10-22] MEDS: Melatonin 3 MG TABLET 6 MG PO (20:04)
[2024-10-23] MEDS: cefuroxime axetiL 250 MG TABLET PO ×2 (05:34→20:26)
[2024-10-23] MEDS: Omeprazole 20 MG CAPSULE.DR PO (05:34)
[2024-10-23 07:55] VITALS: BP 125/61; PULSE 65; RESP 16; TEMP 36.6; O2SAT 97
[2024-10-23] MEDS: Bumetanide 1 MG TABLET 2 MG PO (08:09)
[2024-10-23] MEDS: risperiDONE 0.5 MG TABLET PO (08:09)
[2024-10-23] MEDS: Metoprolol Succinate ER 50 MG TAB.ER.24H PO (08:10)
[2024-10-23] MEDS: Losartan Potassium 50 MG TABLET PO (08:10)
[2024-10-23 11:45] LABS: Alanine Aminotransferase 10 U/L (0-31); Albumin Level 3.6 g/dL (3.5-5.0); Alkaline Phosphatase 70 U/L (39-117); Anion Gap 11 (12-20); Aspartate Amino Transferase 16 U/L (5-31); Bilirubin Total 0.3 mg/dL (0.0-1.0); Blood Urea Nitrogen 37 mg/dL (9-16); Carbon Dioxide 28 mmol/L (22-29); Chloride 105 mmol/L (96-108); Creatinine Clr Calc Pharmacy 36.1; Estimated Glomerular Filt Rate 52; Glucose Random 114 mg/dL (60-115); Sodium 140 mmol/L (135-145); Total Protein 7.7 g/dL (6.5-8.0)
[2024-10-23 20:00] VITALS: BP 103/58; PULSE 67; RESP 16; TEMP 36.6; O2SAT 98
[2024-10-23] MEDS: Melatonin 3 MG TABLET 6 MG PO (20:26)
[2024-10-23] MEDS: fluPHENAZine HCl 2.5 MG TABLET PO (20:57)
--- NOTE | 2024-10-23 22:09 | P.PNPSI_ITS ---
Subjective Subjective Date of Service: 10/23/24 Reason For Visit: delusional d/o Subjective Notes: Conditional Voluntary Interim History: Pt slept through the night. Pt with more intense affect about man and girl talking at night, it seems than less than before but she continues to bring this up along with idea that her family is involved in plan to hurt her. She reports she does not feel safe going to her apartment. does not trust her /ex . Review of Systems Review of Systems Pt denies SOB, chest pain. She reports difficulty walking, ambulates with walker. Denies diarrhea or loose stools. Mental Status Exam Mental Status Exam Narrative: Appearance: wearing hospital gown, ambulating with walker, in NAD behavior: cooperative Psychomotor: no agitation or retardation noted Speech: (assess with assistance of mud tank operator) mostly clear, regular rate/rhythm, spontaneous TP: some loose associations TC: worried that someone is trying to harm her, even here on the unit Mood: good Affect: somewhat anxious seems related to paranoid delusions SI: denies HI: denies VH/AH: appears internally preoccupied, although when asked, denies it Delusions: paranoid/persecutory delusions Insight/judgment: limited x 2 Memory/cog: alert, knows she is in the hospital, knows month, year, thinks she is in the hospital because of back pain, despite being able to tell this inspector automatic typewriter she is in mental health unit. Diagnostics Vital Signs (24Hr): Vital Signs - 24 hr 10/23/24 07:55 Temperature 97.8 F Pulse Rate 65 Respiratory Rate 16 Blood Pressure 125/61 Pulse Oximetry 97 Oxygen Delivery Method Room Air BMI result Body Mass Index 28.6 Labs 10/21/24 12:21 10/23/24 10:54 Labs: Laboratory Results - last 48 hr 10/23/24 10:54 Sodium 140 Potassium 4.0 Chloride 105 Carbon Dioxide 28 Anion Gap 11 L BUN 37 H Creatinine 1.01 Estim Creat Clear Calc 36.1 Estimated GFR 52 Random Glucose 114 Calcium 10.0 Total Bilirubin 0.3 AST 16 ALT 10 Alkaline Phosphatase 70 Total Protein 7.7 Albumin 3.6 Imaging Radiology Impressions: ITS Impressions Knee X-Ray 10/16/24 12:50 IMPRESSION: 1. Small joint effusion. Probable 3 mm loose body. 2. 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 Electronically signed by: Seun Robles MD 10/16/2024 01:12 PM EDT RP Arterial/Peripheral Duplex 10/17/24 16:48 IMPRESSION: 1. Normal right leg ankle brachial index. The left cannot be calculated as segmental BP of the DP is greater than 200 systolic. 2. Scattered mild calcified atherosclerotic disease is present. There is likely mild arterial vascular disease in the left greater than right lower extremities. 3. Biphasic waveforms in the left COOKIE BREAKER, suggesting possible more proximal disease. 4. No criteria for flow-limiting stenosis identified in either lower extremity. See above for details. Electronically signed by: Sriram Calloway MD 10/18/2024 09:52 AM EDT RP Abdomen/Pelvis CT 10/21/24 14:58 IMPRESSION: 1. No evidence of nephrolithiasis or ureteral obstruction. 2. Small hiatal hernia. Small fat-containing umbilical hernia. Electronically signed by: Seun Robles MD 10/21/2024 03:42 PM EDT RP Medications Medications Current Medications Acetaminophen (Acetaminophen 325 Mg Tablet) 650 mg PO Q6H PRN PRN Reason: Headache/Pain, Scale 1-10 Last Admin: 10/22/24 18:54 Dose: 650 mg Al Hydroxide/Mg Hydroxide (Magnesium Hydrox/Alum Hydrox 30 Ml Oral.Susp) 30 ml PO Q6H PRN PRN Reason: Heartburn/Nausea Last Admin: 10/16/24 10:20 Dose: 30 ml Bumetanide (Bumetanide 1 Mg Tablet) 2 mg PO DAILY EDGARD; Protocol Last Admin: 10/23/24 08:09 Dose: 2 mg Cefuroxime Axetil (Cefuroxime Axetil 250 Mg Tablet) 250 mg PO Q12H EDGARD Stop: 10/26/24 06:01 Last Admin: 10/23/24 20:26 Dose: 250 mg Fluphenazine HCl (Fluphenazine Hcl 2.5 Mg Tablet) 2.5 mg PO BID EDGARD Last Admin: 10/23/24 20:57 Dose: 2.5 mg Losartan Potassium (Losartan Potassium 50 Mg Tablet) 50 mg PO DAILY EDGARD; Protocol Last Admin: 10/23/24 08:10 Dose: 50 mg Magnesium Hydroxide (Milk Of Magnesia 30 Ml Oral.Susp) 30 ml PO DAILY PRN PRN Reason: Constipation Last Admin: 10/21/24 10:05 Dose: 30 ml Melatonin (Melatonin 3 Mg Tablet) 6 mg PO BEDTIME EDGARD Last Admin: 10/23/24 20:26 Dose: 6 mg Metoprolol Succinate (Metoprolol Succinate Er 50 Mg Tab.Er.24h) 50 mg PO DAILY EDGARD; Protocol Last Admin: 10/23/24 08:10 Dose: 50 mg Nicotine Polacrilex (Nicotine Polacrilex 2 Mg Gum) 4 mg BUCCAL Q2H PRN PRN Reason: Nicotine Cravings Olanzapine (Olanzapine 2.5 Mg Tablet) 2.5 mg PO BID PRN PRN Reason: agitation Last Admin: 10/16/24 22:11 Dose: 2.5 mg Omeprazole (Omeprazole 20 Mg Capsule.Dr) 20 mg PO DAILY@0700 EDGARD Last Admin: 10/23/24 05:34 Dose: 20 mg Trazodone HCl (Trazodone Hcl 25 Mg Halftab) 25 mg PO BEDTIME MRX1 PRN PRN Reason: Insomnia Last Admin: 10/21/24 23:50 Dose: 25 mg Allergies Allergies Allergy/AdvReac Type Severity Reaction Status Date / Time No Known Allergies Allergy Verified 10/17/24 20:57 Assessment & Plan Assessment & Plan (1) Schizoaffective disorder: Status: Acute Code(s): F25.9 - Schizoaffective disorder, unspecified Plan Mrs. Aldana is a 89 year-old woman who according to her daughter has a long hx of paranoid delusions and psychiatric history but they can't tell what dx she has been given. Daughter denies s/s consistent with lana or hypomania. Working dx is schizoaffective disorder. Pt apparently does not take medications consistently once discharge and rapidly decompensates. We discussed risks, benefits and alternative treatment options, restart risperidone 0.5mg po BID. 10/12 continue risperidone 0.5mg po BID, continues to present as paranoid. 10/13 continue tx. 10/14 monitor BP, encourage increase fluid intake. 10/15 BP low, help losartan. less paranoia but still on and off. will order hospitalist consult for leg pain 10/16 continue tx. continue tx. continue to monitor BP as it's been lowered suspect as consequence of addition of risperidone. consult to hospitalist for leg pain. 10/17: increase HS risperidone to 1 mg for ongoing psychosis, otherwise continue current mgmt. LE doppler pending. 10/18 continue tx. BP stable and tolerating medications. 10/19/2024 Continue plan of care monitor blood pressure monitor psychosis 10/20/2024 Continue plan of care discharge planning 10/21 continue current plan, ordered consult for hospitalist right side flank pain. 10/22 continue tx. 10/23 given ongoing paranoid delusions, will try a different antipsychotic, prolixin 2.5mg po BID. d/c risperidone. Reason for continued inpatient stay Substantial Risk for: inability to function Time Spent With Patient Time: Total time managing care of this patient today ____ minutes.
[2024-10-24] MEDS: Omeprazole 20 MG CAPSULE.DR PO (06:00)
[2024-10-24] MEDS: cefuroxime axetiL 250 MG TABLET PO ×2 (06:01→17:48)
[2024-10-24 07:55] VITALS: BP 131/61; PULSE 60; RESP 18; TEMP 36.8; O2SAT 96
[2024-10-24] MEDS: Losartan Potassium 50 MG TABLET PO (08:08)
[2024-10-24] MEDS: Bumetanide 1 MG TABLET 2 MG PO (08:08)
[2024-10-24] MEDS: fluPHENAZine HCl 2.5 MG TABLET PO ×2 (08:08→21:05)
[2024-10-24] MEDS: Metoprolol Succinate ER 50 MG TAB.ER.24H PO (08:08)
[2024-10-24 09:27] VITALS: BMI 28.9
--- NOTE | 2024-10-24 10:25 | P.PNPSI_ITS ---
Subjective Subjective Date of Service: 10/24/24 Reason For Visit: delusional d/o Subjective Notes: Conditional Voluntary Interim History: Pt slept through the night. Pt continues to report hearing man and girl specially at night. She reports she also hear them during the day. She reports they pull her legs at time. She started new medication prolixin 2.5mg po BID continue to monitor effect. Review of Systems Review of Systems Pt denies SOB, chest pain. She reports difficulty walking, ambulates with walker. Denies diarrhea or loose stools. Mental Status Exam Mental Status Exam Narrative: Appearance: wearing hospital gown, ambulating with walker, in NAD behavior: cooperative Psychomotor: no agitation or retardation noted Speech: (assess with assistance of livestock laborer) mostly clear, regular rate/rhythm, spontaneous TP: some loose associations TC: worried that someone is trying to harm her, even here on the unit Mood: good Affect: somewhat anxious seems related to paranoid delusions SI: denies HI: denies VH/AH: appears internally preoccupied, although when asked, denies it Delusions: paranoid/persecutory delusions Insight/judgment: limited x 2 Memory/cog: alert, knows she is in the hospital, knows month, year, thinks she is in the hospital because of back pain, despite being able to tell this communications writer she is in mental health unit. Diagnostics Vital Signs (24Hr): Vital Signs - 24 hr 10/23/24 20:00 10/24/24 07:55 Temperature 98 F 98.2 F Pulse Rate 67 60 Respiratory Rate 16 18 Blood Pressure 103/58 L 131/61 Pulse Oximetry 98 96 Oxygen Delivery Method Room Air Room Air BMI result Body Mass Index 28.9 Labs 10/21/24 12:21 10/23/24 10:54 Labs: Laboratory Results - last 48 hr 10/23/24 10:54 Sodium 140 Potassium 4.0 Chloride 105 Carbon Dioxide 28 Anion Gap 11 L BUN 37 H Creatinine 1.01 Estim Creat Clear Calc 36.1 Estimated GFR 52 Random Glucose 114 Calcium 10.0 Total Bilirubin 0.3 AST 16 ALT 10 Alkaline Phosphatase 70 Total Protein 7.7 Albumin 3.6 Imaging Radiology Impressions: ITS Impressions Knee X-Ray 10/16/24 12:50 IMPRESSION: 1. Small joint effusion. Probable 3 mm loose body. 2. 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 Electronically signed by: Seun Robles MD 10/16/2024 01:12 PM EDT RP Arterial/Peripheral Duplex 10/17/24 16:48 IMPRESSION: 1. Normal right leg ankle brachial index. The left cannot be calculated as segmental BP of the DP is greater than 200 systolic. 2. Scattered mild calcified atherosclerotic disease is present. There is likely mild arterial vascular disease in the left greater than right lower extremities. 3. Biphasic waveforms in the left RUBBER COMPOUNDER FORMULATOR, suggesting possible more proximal disease. 4. No criteria for flow-limiting stenosis identified in either lower extremity. See above for details. Electronically signed by: Sriram Calloway MD 10/18/2024 09:52 AM EDT RP Abdomen/Pelvis CT 10/21/24 14:58 IMPRESSION: 1. No evidence of nephrolithiasis or ureteral obstruction. 2. Small hiatal hernia. Small fat-containing umbilical hernia. Electronically signed by: Seun Robles MD 10/21/2024 03:42 PM EDT RP Medications Medications Current Medications Acetaminophen (Acetaminophen 325 Mg Tablet) 650 mg PO Q6H PRN PRN Reason: Headache/Pain, Scale 1-10 Last Admin: 10/22/24 18:54 Dose: 650 mg Al Hydroxide/Mg Hydroxide (Magnesium Hydrox/Alum Hydrox 30 Ml Oral.Susp) 30 ml PO Q6H PRN PRN Reason: Heartburn/Nausea Last Admin: 10/16/24 10:20 Dose: 30 ml Bumetanide (Bumetanide 1 Mg Tablet) 2 mg PO DAILY EDGARD; Protocol Last Admin: 10/24/24 08:08 Dose: 2 mg Cefuroxime Axetil (Cefuroxime Axetil 250 Mg Tablet) 250 mg PO Q12H EDGARD Stop: 10/26/24 06:01 Last Admin: 10/24/24 06:01 Dose: 250 mg Fluphenazine HCl (Fluphenazine Hcl 2.5 Mg Tablet) 2.5 mg PO BID EDGARD Last Admin: 10/24/24 08:08 Dose: 2.5 mg Losartan Potassium (Losartan Potassium 50 Mg Tablet) 50 mg PO DAILY EDGARD; Protocol Last Admin: 10/24/24 08:08 Dose: 50 mg Magnesium Hydroxide (Milk Of Magnesia 30 Ml Oral.Susp) 30 ml PO DAILY PRN PRN Reason: Constipation Last Admin: 10/21/24 10:05 Dose: 30 ml Melatonin (Melatonin 3 Mg Tablet) 6 mg PO BEDTIME EDGARD Last Admin: 10/23/24 20:26 Dose: 6 mg Metoprolol Succinate (Metoprolol Succinate Er 50 Mg Tab.Er.24h) 50 mg PO DAILY EDGARD; Protocol Last Admin: 10/24/24 08:08 Dose: 50 mg Nicotine Polacrilex (Nicotine Polacrilex 2 Mg Gum) 4 mg BUCCAL Q2H PRN PRN Reason: Nicotine Cravings Olanzapine (Olanzapine 2.5 Mg Tablet) 2.5 mg PO BID PRN PRN Reason: agitation Last Admin: 10/16/24 22:11 Dose: 2.5 mg Omeprazole (Omeprazole 20 Mg Capsule.Dr) 20 mg PO DAILY@0700 EDGARD Last Admin: 10/24/24 06:00 Dose: 20 mg Trazodone HCl (Trazodone Hcl 25 Mg Halftab) 25 mg PO BEDTIME MRX1 PRN PRN Reason: Insomnia Last Admin: 10/21/24 23:50 Dose: 25 mg Allergies Allergies Allergy/AdvReac Type Severity Reaction Status Date / Time No Known Allergies Allergy Verified 10/17/24 20:57 Assessment & Plan Assessment & Plan (1) Schizoaffective disorder: Status: Acute Code(s): F25.9 - Schizoaffective disorder, unspecified Plan Mrs. Aldana is a 89 year-old woman who according to her daughter has a long hx of paranoid delusions and psychiatric history but they can't tell what dx she has been given. Daughter denies s/s consistent with lana or hypomania. Working dx is schizoaffective disorder. Pt apparently does not take medications consistently once discharge and rapidly decompensates. We discussed risks, benefits and alternative treatment options, restart risperidone 0.5mg po BID. 10/12 continue risperidone 0.5mg po BID, continues to present as paranoid. 10/13 continue tx. 10/14 monitor BP, encourage increase fluid intake. 10/15 BP low, help losartan. less paranoia but still on and off. will order hospitalist consult for leg pain 10/16 continue tx. continue tx. continue to monitor BP as it's been lowered suspect as consequence of addition of risperidone. consult to hospitalist for leg pain. 10/17: increase HS risperidone to 1 mg for ongoing psychosis, otherwise continue current mgmt. LE doppler pending. 10/18 continue tx. BP stable and tolerating medications. 10/19/2024 Continue plan of care monitor blood pressure monitor psychosis 10/20/2024 Continue plan of care discharge planning 10/21 continue current plan, ordered consult for hospitalist right side flank pain. 10/22 continue tx. 10/23 given ongoing paranoid delusions, will try a different antipsychotic, prolixin 2.5mg po BID. d/c risperidone as higher doses will cause increased ortho hotn which she was experiencing with lower doses. 10/24 continue tx. Reason for continued inpatient stay Substantial Risk for: inability to function Time Spent With Patient Time: Total time managing care of this patient today ____ minutes.
[2024-10-24 20:00] VITALS: BP 105/55; PULSE 66; RESP 18; TEMP 36.2; O2SAT 97
[2024-10-24] MEDS: Melatonin 3 MG TABLET 6 MG PO (21:05)
[2024-10-25] MEDS: Omeprazole 20 MG CAPSULE.DR PO (06:10)
[2024-10-25] MEDS: cefuroxime axetiL 250 MG TABLET PO ×2 (06:10→17:18)
[2024-10-25 08:00] VITALS: BP 139/65; PULSE 63; RESP 16; TEMP 36.1; O2SAT 97
[2024-10-25] MEDS: Metoprolol Succinate ER 50 MG TAB.ER.24H PO (08:42)
[2024-10-25] MEDS: fluPHENAZine HCl 2.5 MG TABLET PO ×2 (08:43→20:23)
[2024-10-25] MEDS: Bumetanide 1 MG TABLET 2 MG PO (08:43)
[2024-10-25] MEDS: Losartan Potassium 50 MG TABLET PO (08:43)
[2024-10-25] MEDS: polyethylene glycoL 3350 17 GM POWD.PACK PO (10:13)
[2024-10-25] MEDS: Acetaminophen 325 MG TABLET 650 MG PO (10:13)
--- NOTE | 2024-10-25 16:27 | HO.PSYCHPN ---
Subjective Subjective Date of Service: 10/25/24 Reason For Visit: delusional d/o Subjective Notes: Conditional Voluntary Interim History: Pt slept through the night. Pt continues to report hearing man and girl specially at night. She reports she also hear them during the day. She reports constipation, given miralax. She started new medication prolixin 2.5mg po BID continue to monitor effect. Review of Systems Review of Systems Pt denies SOB, chest pain. She reports difficulty walking, ambulates with walker. Denies diarrhea or loose stools. Mental Status Exam Mental Status Exam Narrative: Appearance: wearing hospital gown, ambulating with walker, in NAD behavior: cooperative Psychomotor: no agitation or retardation noted Speech: (assess with assistance of annealing furnace operator) mostly clear, regular rate/rhythm, spontaneous TP: some loose associations TC: worried that someone is trying to harm her, even here on the unit Mood: good Affect: somewhat anxious seems related to paranoid delusions SI: denies HI: denies VH/AH: appears internally preoccupied, although when asked, denies it Delusions: paranoid/persecutory delusions Insight/judgment: limited x 2 Memory/cog: alert, knows she is in the hospital, knows month, year, thinks she is in the hospital because of back pain, despite being able to tell this account underwriter she is in mental health unit. Diagnostics Vital Signs (24Hr): Vital Signs - 24 hr 10/24/24 20:00 10/25/24 08:00 Temperature 97.2 F 97.0 F Pulse Rate 66 63 Respiratory Rate 18 16 Blood Pressure 105/55 L 139/65 Pulse Oximetry 97 97 Oxygen Delivery Method Room Air Room Air BMI result Body Mass Index 28.9 Labs 10/21/24 12:21 10/23/24 10:54 Imaging Radiology Impressions: ITS Impressions Knee X-Ray 10/16/24 12:50 IMPRESSION: 1. Small joint effusion. Probable 3 mm loose body. 2. 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 Electronically signed by: Seun Robles MD 10/16/2024 01:12 PM EDT Arterial/Peripheral Duplex 10/17/24 16:48 IMPRESSION: 1. Normal right leg ankle brachial index. The left cannot be calculated as segmental BP of the DP is greater than 200 systolic. 2. Scattered mild calcified atherosclerotic disease is present. There is likely mild arterial vascular disease in the left greater than right lower extremities. 3. Biphasic waveforms in the left LICENSE EXAMINER, suggesting possible more proximal disease. 4. No criteria for flow-limiting stenosis identified in either lower extremity. See above for details. Electronically signed by: Sriram Calloway MD 10/18/2024 09:52 AM EDT RP Abdomen/Pelvis CT 10/21/24 14:58 IMPRESSION: 1. No evidence of nephrolithiasis or ureteral obstruction. 2. Small hiatal hernia. Small fat-containing umbilical hernia. Electronically signed by: Seun Robles MD 10/21/2024 03:42 PM EDT RP Medications Medications Current Medications Acetaminophen (Acetaminophen 325 Mg Tablet) 650 mg PO Q6H PRN PRN Reason: Headache/Pain, Scale 1-10 Last Admin: 10/25/24 10:13 Dose: 650 mg Al Hydroxide/Mg Hydroxide (Magnesium Hydrox/Alum Hydrox 30 Ml Oral.Susp) 30 ml PO Q6H PRN PRN Reason: Heartburn/Nausea Last Admin: 10/16/24 10:20 Dose: 30 ml Bumetanide (Bumetanide 1 Mg Tablet) 2 mg PO DAILY EDGARD; Protocol Last Admin: 10/25/24 08:43 Dose: 2 mg Cefuroxime Axetil (Cefuroxime Axetil 250 Mg Tablet) 250 mg PO Q12H EDGARD Stop: 10/26/24 06:01 Last Admin: 10/25/24 06:10 Dose: 250 mg Fluphenazine HCl (Fluphenazine Hcl 2.5 Mg Tablet) 2.5 mg PO BID EDGARD Last Admin: 10/25/24 08:43 Dose: 2.5 mg Losartan Potassium (Losartan Potassium 50 Mg Tablet) 50 mg PO DAILY EDGARD; Protocol Last Admin: 10/25/24 08:43 Dose: 50 mg Magnesium Hydroxide (Milk Of Magnesia 30 Ml Oral.Susp) 30 ml PO DAILY PRN PRN Reason: Constipation Last Admin: 10/21/24 10:05 Dose: 30 ml Melatonin (Melatonin 3 Mg Tablet) 6 mg PO BEDTIME EDGARD Last Admin: 10/24/24 21:05 Dose: 6 mg Metoprolol Succinate (Metoprolol Succinate Er 50 Mg Tab.Er.24h) 50 mg PO DAILY EDAGRD; Protocol Last Admin: 10/25/24 08:42 Dose: 50 mg Nicotine Polacrilex (Nicotine Polacrilex 2 Mg Gum) 4 mg BUCCAL Q2H PRN PRN Reason: Nicotine Cravings Olanzapine (Olanzapine 2.5 Mg Tablet) 2.5 mg PO BID PRN PRN Reason: agitation Last Admin: 10/16/24 22:11 Dose: 2.5 mg Omeprazole (Omeprazole 20 Mg Capsule.Dr) 20 mg PO DAILY@0700 COUNTS INCLUDE 234 BEDS AT [facility] Last Admin: 10/25/24 06:10 Dose: 20 mg Polyethylene Glycol (Polyethylene Glycol 3350 17 Gm Powd.Pack) 17 gm PO DAILY PRN PRN Reason: Constipation Last Admin: 10/25/24 10:13 Dose: 17 gm Trazodone HCl (Trazodone Hcl 25 Mg Halftab) 25 mg PO BEDTIME MRX1 PRN PRN Reason: Insomnia Last Admin: 10/21/24 23:50 Dose: 25 mg Allergies Allergies Allergy/AdvReac Type Severity Reaction Status Date / Time No Known Allergies Allergy Verified 10/17/24 20:57 Assessment & Plan Assessment & Plan (1) Schizoaffective disorder: Status: Acute Code(s): F25.9 - Schizoaffective disorder, unspecified Plan Mrs. Aldana is a 89 year-old woman who according to her daughter has a long hx of paranoid delusions and psychiatric history but they can't tell what dx she has been given. Daughter denies s/s consistent with lana or hypomania. Working dx is schizoaffective disorder. Pt apparently does not take medications consistently once discharge and rapidly decompensates. We discussed risks, benefits and alternative treatment options, restart risperidone 0.5mg po BID. 10/12 continue risperidone 0.5mg po BID, continues to present as paranoid. 10/13 continue tx. 10/14 monitor BP, encourage increase fluid intake. 10/15 BP low, help losartan. less paranoia but still on and off. will order hospitalist consult for leg pain 10/16 continue tx. continue tx. continue to monitor BP as it's been lowered suspect as consequence of addition of risperidone. consult to hospitalist for leg pain. 10/17: increase HS risperidone to 1 mg for ongoing psychosis, otherwise continue current mgmt. LE doppler pending. 10/18 continue tx. BP stable and tolerating medications. 10/19/2024 Continue plan of care monitor blood pressure monitor psychosis 10/20/2024 Continue plan of care discharge planning 10/21 continue current plan, ordered consult for hospitalist right side flank pain. 10/22 continue tx. 10/23 given ongoing paranoid delusions, will try a different antipsychotic, prolixin 2.5mg po BID. d/c risperidone as higher doses will cause increased ortho hotn which she was experiencing with lower doses. 10/24 continue tx. 10/25 continue tx. Reason for continued inpatient stay Substantial Risk for: inability to function Time Spent With Patient Time: Total time managing care of this patient today ____ minutes.
[2024-10-25 20:00] VITALS: BP 142/63; PULSE 58; RESP 18; TEMP 36.2; O2SAT 99
[2024-10-25] MEDS: Melatonin 3 MG TABLET 6 MG PO (20:23)
[2024-10-26] MEDS: cefuroxime axetiL 250 MG TABLET PO (05:47)
[2024-10-26] MEDS: Omeprazole 20 MG CAPSULE.DR PO (05:47)
[2024-10-26 07:57] VITALS: BP 116/58; PULSE 64; RESP 16; TEMP 36.2; O2SAT 95
[2024-10-26] MEDS: fluPHENAZine HCl 2.5 MG TABLET PO ×2 (08:48→20:19)
[2024-10-26] MEDS: Metoprolol Succinate ER 50 MG TAB.ER.24H PO (08:48)
[2024-10-26] MEDS: Bumetanide 1 MG TABLET 2 MG PO (08:48)
[2024-10-26] MEDS: Losartan Potassium 50 MG TABLET PO (08:48)
--- NOTE | 2024-10-26 08:56 | HO.PSYCHPN ---
Subjective Subjective Date of Service: 10/26/24 Reason For Visit: delusional d/o Interim History: Seen with RN and help of [place] mail carrier and clerk over the [employer] machine. She is reporting mistrust and says she doesn't want to say how she really feels so she is not put in the crazy house . She is med adherent. Says her sleep was restless. Staff report patient slept through the night. AH continue. Calm. No behavioral concerns. Review of Systems Review of Systems Pt denies SOB, chest pain. She reports difficulty walking, ambulates with walker. Denies diarrhea or loose stools. Mental Status Exam Mental Status Exam Narrative: Appearance: wearing hospital gown, ambulating with walker, in NAD behavior: cooperative Psychomotor: no agitation or retardation noted Speech: (assess with assistance of mail carrier and clerk) mostly clear, regular rate/rhythm, spontaneous TP: some loose associations TC: worried that someone is trying to harm her, even here on the unit Mood: good Affect: somewhat anxious seems related to paranoid delusions SI: denies HI: denies VH/AH: appears internally preoccupied, although when asked, denies it Delusions: paranoid/persecutory delusions Insight/judgment: limited x 2 Memory/cog: alert, knows she is in the hospital, knows month, year, thinks she is in the hospital because of back pain, despite being able to tell this creative writer she is in mental health unit. Diagnostics Vital Signs (24Hr): Vital Signs - 24 hr 10/25/24 20:00 10/26/24 07:57 Temperature 97.2 F 97.2 F Pulse Rate 58 64 Respiratory Rate 18 16 Blood Pressure 142/63 H 116/58 L Pulse Oximetry 99 95 Oxygen Delivery Method Room Air Room Air BMI result Body Mass Index 28.9 Labs 10/21/24 12:21 10/23/24 10:54 Imaging Radiology Impressions: ITS Impressions Knee X-Ray 10/16/24 12:50 IMPRESSION: 1. Small joint effusion. Probable 3 mm loose body. 2. 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 Electronically signed by: Seun Robles MD 10/16/2024 01:12 PM EDT RP Arterial/Peripheral Duplex 10/17/24 16:48 IMPRESSION: 1. Normal right leg ankle brachial index. The left cannot be calculated as segmental BP of the DP is greater than 200 systolic. 2. Scattered mild calcified atherosclerotic disease is present. There is likely mild arterial vascular disease in the left greater than right lower extremities. 3. Biphasic waveforms in the left STEEL WELDER, suggesting possible more proximal disease. 4. No criteria for flow-limiting stenosis identified in either lower extremity. See above for details. Electronically signed by: Sriram Calloway MD 10/18/2024 09:52 AM EDT RP Abdomen/Pelvis CT 10/21/24 14:58 IMPRESSION: 1. No evidence of nephrolithiasis or ureteral obstruction. 2. Small hiatal hernia. Small fat-containing umbilical hernia. Electronically signed by: Seun Robles MD 10/21/2024 03:42 PM EDT RP Medications Medications Current Medications Acetaminophen (Acetaminophen 325 Mg Tablet) 650 mg PO Q6H PRN PRN Reason: Headache/Pain, Scale 1-10 Last Admin: 10/25/24 10:13 Dose: 650 mg Al Hydroxide/Mg Hydroxide (Magnesium Hydrox/Alum Hydrox 30 Ml Oral.Susp) 30 ml PO Q6H PRN PRN Reason: Heartburn/Nausea Last Admin: 10/16/24 10:20 Dose: 30 ml Bumetanide (Bumetanide 1 Mg Tablet) 2 mg PO DAILY [facility]; Protocol Last Admin: 10/26/24 08:48 Dose: 2 mg Fluphenazine HCl (Fluphenazine Hcl 2.5 Mg Tablet) 2.5 mg PO BID [facility] Last Admin: 10/26/24 08:48 Dose: 2.5 mg Losartan Potassium (Losartan Potassium 50 Mg Tablet) 50 mg PO DAILY [facility]; Protocol Last Admin: 10/26/24 08:48 Dose: 50 mg Magnesium Hydroxide (Milk Of Magnesia 30 Ml Oral.Susp) 30 ml PO DAILY PRN PRN Reason: Constipation Last Admin: 10/21/24 10:05 Dose: 30 ml Melatonin (Melatonin 3 Mg Tablet) 6 mg PO BEDTIME [facility] Last Admin: 10/25/24 20:23 Dose: 6 mg Metoprolol Succinate (Metoprolol Succinate Er 50 Mg Tab.Er.24h) 50 mg PO DAILY [facility]; Protocol Last Admin: 10/26/24 08:48 Dose: 50 mg Nicotine Polacrilex (Nicotine Polacrilex 2 Mg Gum) 4 mg BUCCAL Q2H PRN PRN Reason: Nicotine Cravings Olanzapine (Olanzapine 2.5 Mg Tablet) 2.5 mg PO BID PRN PRN Reason: agitation Last Admin: 10/16/24 22:11 Dose: 2.5 mg Omeprazole (Omeprazole 20 Mg Capsule.Dr) 20 mg PO DAILY@0700 [facility] Last Admin: 10/26/24 05:47 Dose: 20 mg Polyethylene Glycol (Polyethylene Glycol 3350 17 Gm Powd.Pack) 17 gm PO DAILY PRN PRN Reason: Constipation Last Admin: 10/25/24 10:13 Dose: 17 gm Trazodone HCl (Trazodone Hcl 25 Mg Halftab) 25 mg PO BEDTIME MRX1 PRN PRN Reason: Insomnia Last Admin: 10/21/24 23:50 Dose: 25 mg Allergies Allergies Allergy/AdvReac Type Severity Reaction Status Date / Time No Known Allergies Allergy Verified 10/17/24 20:57 Assessment & Plan Assessment & Plan (1) Schizoaffective disorder: Status: Acute Code(s): F25.9 - Schizoaffective disorder, unspecified Plan Mrs. Aldana is a 89 year-old woman who according to her daughter has a long hx of paranoid delusions and psychiatric history but they can't tell what dx she has been given. Daughter denies s/s consistent with lana or hypomania. Working dx is schizoaffective disorder. Pt apparently does not take medications consistently once discharge and rapidly decompensates. We discussed risks, benefits and alternative treatment options, restart risperidone 0.5mg po BID. 10/12 continue risperidone 0.5mg po BID, continues to present as paranoid. 10/13 continue tx. 10/14 monitor BP, encourage increase fluid intake. 10/15 BP low, help losartan. less paranoia but still on and off. will order hospitalist consult for leg pain 10/16 continue tx. continue tx. continue to monitor BP as it's been lowered suspect as consequence of addition of risperidone. consult to hospitalist for leg pain. 10/17: increase HS risperidone to 1 mg for ongoing psychosis, otherwise continue current mgmt. LE doppler pending. 10/18 continue tx. BP stable and tolerating medications. 10/19/2024 Continue plan of care monitor blood pressure monitor psychosis 10/20/2024 Continue plan of care discharge planning 10/21 continue current plan, ordered consult for hospitalist right side flank pain. 10/22 continue tx. 10/23 given ongoing paranoid delusions, will try a different antipsychotic, prolixin 2.5mg po BID. d/c risperidone as higher doses will cause increased ortho hotn which she was experiencing with lower doses. 10/24 continue tx. 10/25 continue tx. 10/26: Continue current management and treatment plan. Reason for continued inpatient stay Substantial Risk for: inability to function and rapid decompensation Time Spent With Patient Time: Total time managing care of this patient today ____ minutes.
[2024-10-26 20:00] VITALS: BP 94/52; PULSE 65; RESP 18; TEMP 36.7; O2SAT 100
[2024-10-26] MEDS: Melatonin 3 MG TABLET 6 MG PO (20:19)
[2024-10-27] MEDS: Omeprazole 20 MG CAPSULE.DR PO (05:56)
[2024-10-27 08:00] VITALS: BP 136/64; PULSE 60; RESP 16; TEMP 36.2; O2SAT 95
[2024-10-27] MEDS: Losartan Potassium 50 MG TABLET PO (08:38)
[2024-10-27] MEDS: Metoprolol Succinate ER 50 MG TAB.ER.24H PO (08:38)
[2024-10-27] MEDS: fluPHENAZine HCl 2.5 MG TABLET PO ×2 (08:38→20:52)
[2024-10-27] MEDS: Bumetanide 1 MG TABLET 2 MG PO (08:38)
--- NOTE | 2024-10-27 12:06 | P.PNPSI_ITS ---
Subjective Subjective Date of Service: 10/27/24 Reason For Visit: delusional d/o Interim History: Patient is pleasant and cooperative. She is observed self dialoguing at times. She is eating well. Medication adherent. No SI. Staff report patient slept through the night. AH continue. Calm. No behavioral concerns. Review of Systems Review of Systems Pt denies SOB, chest pain. She reports difficulty walking, ambulates with walker. Denies diarrhea or loose stools. Mental Status Exam Mental Status Exam Narrative: Appearance: wearing hospital gown, ambulating with walker, in NAD behavior: cooperative Psychomotor: no agitation or retardation noted Speech: (assess with assistance of nocturnist physician) mostly clear, regular rate/rhythm, spontaneous TP: some loose associations TC: worried that someone is trying to harm her, even here on the unit Mood: good Affect: somewhat anxious seems related to paranoid delusions SI: denies HI: denies VH/AH: appears internally preoccupied, although when asked, denies it Delusions: paranoid/persecutory delusions Insight/judgment: limited x 2 Memory/cog: alert, knows she is in the hospital, knows month, year, thinks she is in the hospital because of back pain, despite being able to tell this public relations writer she is in mental health unit. Diagnostics Vital Signs (24Hr): Vital Signs - 24 hr 10/26/24 20:00 10/27/24 08:00 Temperature 98.1 F 97.1 F Pulse Rate 65 60 Respiratory Rate 18 16 Blood Pressure 94/52 L 136/64 Pulse Oximetry 100 95 Oxygen Delivery Method Room Air Room Air BMI result Body Mass Index 28.9 Labs 10/21/24 12:21 10/23/24 10:54 Imaging Radiology Impressions: ITS Impressions Knee X-Ray 10/16/24 12:50 IMPRESSION: 1. Small joint effusion. Probable 3 mm loose body. 2. 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 Electronically signed by: Seun Robles MD 10/16/2024 01:12 PM EDT Arterial/Peripheral Duplex 10/17/24 16:48 IMPRESSION: 1. Normal right leg ankle brachial index. The left cannot be calculated as segmental BP of the DP is greater than 200 systolic. 2. Scattered mild calcified atherosclerotic disease is present. There is likely mild arterial vascular disease in the left greater than right lower extremities. 3. Biphasic waveforms in the left [employer] O[employer] CRAFTSMAN, suggesting possible more proximal disease. 4. No criteria for flow-limiting stenosis identified in either lower extremity. See above for details. Electronically signed by: Sriram Calloway MD 10/18/2024 09:52 AM EDT RP Abdomen/Pelvis CT 10/21/24 14:58 IMPRESSION: 1. No evidence of nephrolithiasis or ureteral obstruction. 2. Small hiatal hernia. Small fat-containing umbilical hernia. Electronically signed by: Seun Robles MD 10/21/2024 03:42 PM EDT RP Medications Medications Current Medications Acetaminophen (Acetaminophen 325 Mg Tablet) 650 mg PO Q6H PRN PRN Reason: Headache/Pain, Scale 1-10 Last Admin: 10/25/24 10:13 Dose: 650 mg Al Hydroxide/Mg Hydroxide (Magnesium Hydrox/Alum Hydrox 30 Ml Oral.Susp) 30 ml PO Q6H PRN PRN Reason: Heartburn/Nausea Last Admin: 10/16/24 10:20 Dose: 30 ml Bumetanide (Bumetanide 1 Mg Tablet) 2 mg PO DAILY [facility]; Protocol Last Admin: 10/27/24 08:38 Dose: 2 mg Fluphenazine HCl (Fluphenazine Hcl 2.5 Mg Tablet) 2.5 mg PO BID [facility] Last Admin: 10/27/24 08:38 Dose: 2.5 mg Losartan Potassium (Losartan Potassium 50 Mg Tablet) 50 mg PO DAILY [facility]; Protocol Last Admin: 10/27/24 08:38 Dose: 50 mg Magnesium Hydroxide (Milk Of Magnesia 30 Ml Oral.Susp) 30 ml PO DAILY PRN PRN Reason: Constipation Last Admin: 10/21/24 10:05 Dose: 30 ml Melatonin (Melatonin 3 Mg Tablet) 6 mg PO BEDTIME [facility] Last Admin: 10/26/24 20:19 Dose: 6 mg Metoprolol Succinate (Metoprolol Succinate Er 50 Mg Tab.Er.24h) 50 mg PO DAILY [facility]; Protocol Last Admin: 10/27/24 08:38 Dose: 50 mg Nicotine Polacrilex (Nicotine Polacrilex 2 Mg Gum) 4 mg BUCCAL Q2H PRN PRN Reason: Nicotine Cravings Olanzapine (Olanzapine 2.5 Mg Tablet) 2.5 mg PO BID PRN PRN Reason: agitation Last Admin: 10/16/24 22:11 Dose: 2.5 mg Omeprazole (Omeprazole 20 Mg Capsule.Dr) 20 mg PO DAILY@0700 [facility] Last Admin: 10/27/24 05:56 Dose: 20 mg Polyethylene Glycol (Polyethylene Glycol 3350 17 Gm Powd.Pack) 17 gm PO DAILY PRN PRN Reason: Constipation Last Admin: 10/25/24 10:13 Dose: 17 gm Trazodone HCl (Trazodone Hcl 25 Mg Halftab) 25 mg PO BEDTIME MRX1 PRN PRN Reason: Insomnia Last Admin: 10/21/24 23:50 Dose: 25 mg Allergies Allergies Allergy/AdvReac Type Severity Reaction Status Date / Time No Known Allergies Allergy Verified 10/17/24 20:57 Assessment & Plan Assessment & Plan (1) Schizoaffective disorder: Status: Acute Code(s): F25.9 - Schizoaffective disorder, unspecified Plan Mrs. Aldana is a 89 year-old woman who according to her daughter has a long hx of paranoid delusions and psychiatric history but they can't tell what dx she has been given. Daughter denies s/s consistent with lana or hypomania. Working dx is schizoaffective disorder. Pt apparently does not take medications consistently once discharge and rapidly decompensates. We discussed risks, benefits and alternative treatment options, restart risperidone 0.5mg po BID. 10/12 continue risperidone 0.5mg po BID, continues to present as paranoid. 10/13 continue tx. 10/14 monitor BP, encourage increase fluid intake. 10/15 BP low, help losartan. less paranoia but still on and off. will order hospitalist consult for leg pain 10/16 continue tx. continue tx. continue to monitor BP as it's been lowered suspect as consequence of addition of risperidone. consult to hospitalist for leg pain. 10/17: increase HS risperidone to 1 mg for ongoing psychosis, otherwise continue current mgmt. LE doppler pending. 10/18 continue tx. BP stable and tolerating medications. 10/19/2024 Continue plan of care monitor blood pressure monitor psychosis 10/20/2024 Continue plan of care discharge planning 10/21 continue current plan, ordered consult for hospitalist right side flank pain. 10/22 continue tx. 10/23 given ongoing paranoid delusions, will try a different antipsychotic, prolixin 2.5mg po BID. d/c risperidone as higher doses will cause increased ortho hotn which she was experiencing with lower doses. 10/24 continue tx. 10/25 continue tx. 10/26: Continue current management and treatment plan. 10/27: Continue current management and treatment plan. Reason for continued inpatient stay Substantial Risk for: inability to function and rapid decompensation Time Spent With Patient Time: Total time managing care of this patient today ____ minutes.
[2024-10-27 20:00] VITALS: BP 117/58; PULSE 59; RESP 17; TEMP 36.1; O2SAT 97
[2024-10-27] MEDS: Melatonin 3 MG TABLET 6 MG PO (20:52)
[2024-10-28] MEDS: Omeprazole 20 MG CAPSULE.DR PO (06:14)
[2024-10-28 08:50] VITALS: BP 131/68; PULSE 60; RESP 18; O2SAT 98
[2024-10-28 08:52] VITALS: BP 131/68; PULSE 60
[2024-10-28] MEDS: Losartan Potassium 50 MG TABLET PO (08:52)
[2024-10-28] MEDS: Metoprolol Succinate ER 50 MG TAB.ER.24H PO (08:52)
[2024-10-28] MEDS: fluPHENAZine HCl 2.5 MG TABLET PO ×2 (08:52→20:38)
[2024-10-28] MEDS: Bumetanide 1 MG TABLET 2 MG PO (08:52)
--- NOTE | 2024-10-28 09:36 | HO.PSYCHPN ---
Subjective Subjective Date of Service: 10/28/24 Reason For Visit: delusional d/o Subjective Notes: Conditional Voluntary Interim History: Pt reports sleeping through the night but feeling short of breath last night. O2sat yesterday >98 % on RA. She denies any respiratory symptoms this morning. SHe does report some congestion. She reports that she has not heard the man and girl as much, which she attributes to the congestion and probably as she explains not hearing as well. She reports lower back pain is less. She does report feeling somewhat weak and gets tired when she ambulates. No chest pain. Diagnostics Vital Signs (24Hr): Vital Signs - 24 hr 10/27/24 20:00 10/28/24 08:50 10/28/24 08:52 Temperature 97 F Pulse Rate 59 60 Respiratory Rate 17 18 Blood Pressure 117/58 L 131/68 131/68 Pulse Oximetry 97 98 Oxygen Delivery Method Room Air Room Air 10/28/24 08:52 Temperature Pulse Rate 60 Respiratory Rate Blood Pressure 131/68 Pulse Oximetry Oxygen Delivery Method BMI result Body Mass Index 28.9 Labs 10/21/24 12:21 10/23/24 10:54 Imaging Radiology Impressions: ITS Impressions Knee X-Ray 10/16/24 12:50 IMPRESSION: 1. Small joint effusion. Probable 3 mm loose body. 2. 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 Electronically signed by: Seun Robles MD 10/16/2024 01:12 PM EDT Arterial/Peripheral Duplex 10/17/24 16:48 IMPRESSION: 1. Normal right leg ankle brachial index. The left cannot be calculated as segmental BP of the DP is greater than 200 systolic. 2. Scattered mild calcified atherosclerotic disease is present. There is likely mild arterial vascular disease in the left greater than right lower extremities. 3. Biphasic waveforms in the left ORNAMENT STAPLER, suggesting possible more proximal disease. 4. No criteria for flow-limiting stenosis identified in either lower extremity. See above for details. Electronically signed by: Sriram Calloway MD 10/18/2024 09:52 AM EDT Abdomen/Pelvis CT 10/21/24 14:58 IMPRESSION: 1. No evidence of nephrolithiasis or ureteral obstruction. 2. Small hiatal hernia. Small fat-containing umbilical hernia. Electronically signed by: Seun Robles MD 10/21/2024 03:42 PM EDT RP Medications Medications Current Medications Acetaminophen (Acetaminophen 325 Mg Tablet) 650 mg PO Q6H PRN PRN Reason: Headache/Pain, Scale 1-10 Last Admin: 10/25/24 10:13 Dose: 650 mg Al Hydroxide/Mg Hydroxide (Magnesium Hydrox/Alum Hydrox 30 Ml Oral.Susp) 30 ml PO Q6H PRN PRN Reason: Heartburn/Nausea Last Admin: 10/16/24 10:20 Dose: 30 ml Bumetanide (Bumetanide 1 Mg Tablet) 2 mg PO DAILY [facility]; Protocol Last Admin: 10/28/24 08:52 Dose: 2 mg Fluphenazine HCl (Fluphenazine Hcl 2.5 Mg Tablet) 2.5 mg PO BID [facility] Last Admin: 10/28/24 08:52 Dose: 2.5 mg Losartan Potassium (Losartan Potassium 50 Mg Tablet) 50 mg PO DAILY [facility]; Protocol Last Admin: 10/28/24 08:52 Dose: 50 mg Magnesium Hydroxide (Milk Of Magnesia 30 Ml Oral.Susp) 30 ml PO DAILY PRN PRN Reason: Constipation Last Admin: 10/21/24 10:05 Dose: 30 ml Melatonin (Melatonin 3 Mg Tablet) 6 mg PO BEDTIME [facility] Last Admin: 10/27/24 20:52 Dose: 6 mg Metoprolol Succinate (Metoprolol Succinate Er 50 Mg Tab.Er.24h) 50 mg PO DAILY [facility]; Protocol Last Admin: 10/28/24 08:52 Dose: 50 mg Nicotine Polacrilex (Nicotine Polacrilex 2 Mg Gum) 4 mg BUCCAL Q2H PRN PRN Reason: Nicotine Cravings Olanzapine (Olanzapine 2.5 Mg Tablet) 2.5 mg PO BID PRN PRN Reason: agitation Last Admin: 10/16/24 22:11 Dose: 2.5 mg Omeprazole (Omeprazole 20 Mg Capsule.Dr) 20 mg PO DAILY@0700 [facility] Last Admin: 10/28/24 06:14 Dose: 20 mg Polyethylene Glycol (Polyethylene Glycol 3350 17 Gm Powd.Pack) 17 gm PO DAILY PRN PRN Reason: Constipation Last Admin: 10/25/24 10:13 Dose: 17 gm Trazodone HCl (Trazodone Hcl 25 Mg Halftab) 25 mg PO BEDTIME MRX1 PRN PRN Reason: Insomnia Last Admin: 10/21/24 23:50 Dose: 25 mg Allergies Allergies Allergy/AdvReac Type Severity Reaction Status Date / Time No Known Allergies Allergy Verified 10/17/24 20:57 Assessment & Plan Assessment & Plan (1) Schizoaffective disorder: Status: Acute Code(s): F25.9 - Schizoaffective disorder, unspecified Plan Mrs. Aldana is a 89 year-old woman who according to her daughter has a long hx of paranoid delusions and psychiatric history but they can't tell what dx she has been given. Daughter denies s/s consistent with lana or hypomania. Working dx is schizoaffective disorder. Pt apparently does not take medications consistently once discharge and rapidly decompensates. We discussed risks, benefits and alternative treatment options, restart risperidone 0.5mg po BID. 10/12 continue risperidone 0.5mg po BID, continues to present as paranoid. 10/13 continue tx. 10/14 monitor BP, encourage increase fluid intake. 10/15 BP low, help losartan. less paranoia but still on and off. will order hospitalist consult for leg pain 10/16 continue tx. continue tx. continue to monitor BP as it's been lowered suspect as consequence of addition of risperidone. consult to hospitalist for leg pain. 10/17: increase HS risperidone to 1 mg for ongoing psychosis, otherwise continue current mgmt. LE doppler pending. 10/18 continue tx. BP stable and tolerating medications. 10/19/2024 Continue plan of care monitor blood pressure monitor psychosis 10/20/2024 Continue plan of care discharge planning 10/21 continue current plan, ordered consult for hospitalist right side flank pain. 10/22 continue tx. 10/23 given ongoing paranoid delusions, will try a different antipsychotic, prolixin 2.5mg po BID. d/c risperidone as higher doses will cause increased ortho hotn which she was experiencing with lower doses. 10/24 continue tx. 10/25 continue tx. 10/26: Continue current management and treatment plan. 10/27: Continue current management and treatment plan. 10/28 continue tx. seems less voices. Reason for continued inpatient stay Substantial Risk for: inability to function Time Spent With Patient Time: Total time managing care of this patient today ____ minutes.
[2024-10-28 20:00] VITALS: BP 130/60; PULSE 69; RESP 17; TEMP 36.1; O2SAT 96
[2024-10-28] MEDS: Melatonin 3 MG TABLET 6 MG PO (20:38)
--- NOTE | 2024-10-29 | ECG_ITS ---
Test Reason : dyspnea Blood Pressure : */* mmHG Vent. Rate : 59 BPM Atrial Rate : 59 BPM P-R Int : 174 ms QRS Dur : 90 ms QT Int : 418 ms P-R-T Axes : 63 -18 6 degrees QTcB Int : 413 ms Sinus bradycardia Otherwise normal ECG No previous ECGs available Referred By: Little Parr Electronically Signed By: ALFREDITO TRUJILLO MD
[2024-10-29] MEDS: Omeprazole 20 MG CAPSULE.DR PO (06:02)
[2024-10-29] MEDS: Bumetanide 1 MG TABLET 2 MG PO (07:52)
[2024-10-29] MEDS: fluPHENAZine HCl 2.5 MG TABLET PO ×2 (07:52→20:17)
[2024-10-29] MEDS: Metoprolol Succinate ER 50 MG TAB.ER.24H PO (07:53)
[2024-10-29] MEDS: Losartan Potassium 50 MG TABLET PO (07:53)
[2024-10-29 08:00] VITALS: BP 128/62; PULSE 65; RESP 16; TEMP 35.8; O2SAT 95
--- NOTE | 2024-10-29 11:17 | P.CONHOSP_ITS ---
History of Present Illness Data of Consult Primary Care Provider: Unknown Physician [facility] Medical History (Updated 10/21/24 @ 11:57 by IRENE Gutierrez) Schizoaffective disorder Nephrolithiasis Hypertension Social History Household Members: Unknown / Unable to assess Housing: Apartment Do you presently have visiting nurse or other home services: No (unable to answer) Patient Tobacco Use Status: Never used Tobacco Smoked in Last 30 Days: No e-Cigarette/Vaping Use: Never Used Patient Interested in Nicotine Replacement: No Patient Given Instructions on How to Stop Smoking: No Second Hand Smoke Exposure: No Use of substances other than those prescribed or required for medical reasons: No Currently Displaying Signs/Symptoms of Drug Intoxication Withdrawal: No Advance Directives: No Advance Directives Information Provided: No Do you have thoughts of harming others: None Do you have a plan to hurt others: No Plan Recently lost weight without trying: Unsure Nutrition Risks: No Nutritional Risk Patient : No : No Poor oral hygiene: Yes (Missing teeth) service: No Sexual orientation: Straight/Heterosexual Meds Allergies Allergy/AdvReac Type Severity Reaction Status Date / Time No Known Allergies Allergy Verified 10/17/24 20:57 Active Medications: Current Medications Acetaminophen (Acetaminophen 325 Mg Tablet) 650 mg PO Q6H PRN PRN Reason: Headache/Pain, Scale 1-10 Last Admin: 10/25/24 10:13 Dose: 650 mg Al Hydroxide/Mg Hydroxide (Magnesium Hydrox/Alum Hydrox 30 Ml Oral.Susp) 30 ml PO Q6H PRN PRN Reason: Heartburn/Nausea Last Admin: 10/16/24 10:20 Dose: 30 ml Bumetanide (Bumetanide 1 Mg Tablet) 2 mg PO DAILY [facility]; Protocol Last Admin: 10/29/24 07:52 Dose: 2 mg Fluphenazine Decanoate (Fluphenazine Decanoate 25 Mg/Ml 5 Ml Vial) 6.25 mg IM Q14D@0900 [facility] Fluphenazine HCl (Fluphenazine Hcl 2.5 Mg Tablet) 2.5 mg PO BID [facility] Last Admin: 10/29/24 07:52 Dose: 2.5 mg Losartan Potassium (Losartan Potassium 50 Mg Tablet) 50 mg PO DAILY [facility]; Protocol Last Admin: 10/29/24 07:53 Dose: 50 mg Magnesium Hydroxide (Milk Of Magnesia 30 Ml Oral.Susp) 30 ml PO DAILY PRN PRN Reason: Constipation Last Admin: 10/21/24 10:05 Dose: 30 ml Melatonin (Melatonin 3 Mg Tablet) 6 mg PO BEDTIME [facility] Last Admin: 10/28/24 20:38 Dose: 6 mg Metoprolol Succinate (Metoprolol Succinate Er 50 Mg Tab.Er.24h) 50 mg PO DAILY [facility]; Protocol Last Admin: 10/29/24 07:53 Dose: 50 mg Nicotine Polacrilex (Nicotine Polacrilex 2 Mg Gum) 4 mg BUCCAL Q2H PRN PRN Reason: Nicotine Cravings Olanzapine (Olanzapine 2.5 Mg Tablet) 2.5 mg PO BID PRN PRN Reason: agitation Last Admin: 10/16/24 22:11 Dose: 2.5 mg Omeprazole (Omeprazole 20 Mg Capsule.Dr) 20 mg PO DAILY@0700 [facility] Last Admin: 10/29/24 06:02 Dose: 20 mg Polyethylene Glycol (Polyethylene Glycol 3350 17 Gm Powd.Pack) 17 gm PO DAILY PRN PRN Reason: Constipation Last Admin: 10/25/24 10:13 Dose: 17 gm Trazodone HCl (Trazodone Hcl 25 Mg Halftab) 25 mg PO BEDTIME MRX1 PRN PRN Reason: Insomnia Last Admin: 10/21/24 23:50 Dose: 25 mg Home Medications ?Medication ?Instructions ?Recorded ?Confirmed ?Last Taken ?Type diphenhydramine HCl 25 mg capsule 25 mg PO QID PRN Itching 10/10/24 10/11/24 Unknown History (Minaryjuan) losartan 50 mg tablet 50 mg PO DAILY blood pressure 10/10/24 10/10/24 Unknown History metoprolol succinate 50 mg 50 mg PO DAILY blood pressure 10/10/24 10/10/24 Unknown History tablet,extended release 24 hr risperidone 0.5 mg tablet 0.25 mg PO Q6H PRN Psychosis 10/10/24 10/10/24 Unknown History risperidone 0.5 mg tablet 0.5 mg PO BEDTIME psychosis 10/10/24 10/10/24 Unknown History bumetanide 2 mg tablet 2 mg PO DAILY 10/11/24 10/11/24 Unknown History Physical Exam 2 Vital Signs and Narrative: Vital Signs: Last Vital Signs Temp 96.5 F L 10/29/24 08:00 Pulse 65 03/25/25 08:00 Resp 16 10/29/24 08:00 BP 128/62 10/29/24 08:00 Pulse Ox 95 10/29/24 08:00 O2 Del Method Room Air 10/29/24 08:00 BMI result Body Mass Index 28.9 Results Labs 10/21/24 12:21 10/23/24 10:54
--- NOTE | 2024-10-29 11:23 | HO.PSYCHPN ---
Subjective Subjective Date of Service: 10/29/24 Reason For Visit: delusional d/o Subjective Notes: Conditional Voluntary Interim History: Pt reports some difficulty sleeping at night. She reports feeling short of breath when sitting or sleeping, better when she ambulates. No desaturation on room air. Order BNP- since she also has HF, chest xr. afebrile. Less intensity about paranoid delusions. Diagnostics Vital Signs (24Hr): Vital Signs - 24 hr 10/28/24 20:00 10/29/24 08:00 Temperature 96.9 F 96.5 F L Pulse Rate 69 65 Respiratory Rate 17 16 Blood Pressure 130/60 128/62 Pulse Oximetry 96 95 Oxygen Delivery Method Room Air Room Air BMI result Body Mass Index 28.9 Labs 10/21/24 12:21 10/23/24 10:54 Imaging Radiology Impressions: ITS Impressions Knee X-Ray 10/16/24 12:50 IMPRESSION: 1. Small joint effusion. Probable 3 mm loose body. 2. 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 Electronically signed by: Seun Robles MD 10/16/2024 01:12 PM EDT Arterial/Peripheral Duplex 10/17/24 16:48 IMPRESSION: 1. Normal right leg ankle brachial index. The left cannot be calculated as segmental BP of the DP is greater than 200 systolic. 2. Scattered mild calcified atherosclerotic disease is present. There is likely mild arterial vascular disease in the left greater than right lower extremities. 3. Biphasic waveforms in the left PURIFICATION OPERATOR, suggesting possible more proximal disease. 4. No criteria for flow-limiting stenosis identified in either lower extremity. See above for details. Electronically signed by: Sriram Calloway MD 10/18/2024 09:52 AM EDT Abdomen/Pelvis CT 10/21/24 14:58 IMPRESSION: 1. No evidence of nephrolithiasis or ureteral obstruction. 2. Small hiatal hernia. Small fat-containing umbilical hernia. Electronically signed by: Seun Robles MD 10/21/2024 03:42 PM EDT Medications Medications Current Medications Acetaminophen (Acetaminophen 325 Mg Tablet) 650 mg PO Q6H PRN PRN Reason: Headache/Pain, Scale 1-10 Last Admin: 10/25/24 10:13 Dose: 650 mg Al Hydroxide/Mg Hydroxide (Magnesium Hydrox/Alum Hydrox 30 Ml Oral.Susp) 30 ml PO Q6H PRN PRN Reason: Heartburn/Nausea Last Admin: 10/16/24 10:20 Dose: 30 ml Bumetanide (Bumetanide 1 Mg Tablet) 2 mg PO DAILY [facility]; Protocol Last Admin: 10/29/24 07:52 Dose: 2 mg Fluphenazine Decanoate (Fluphenazine Decanoate 25 Mg/Ml 5 Ml Vial) 6.25 mg IM Q14D@0900 [facility] Fluphenazine HCl (Fluphenazine Hcl 2.5 Mg Tablet) 2.5 mg PO BID [facility] Last Admin: 10/29/24 07:52 Dose: 2.5 mg Losartan Potassium (Losartan Potassium 50 Mg Tablet) 50 mg PO DAILY [facility]; Protocol Last Admin: 10/29/24 07:53 Dose: 50 mg Magnesium Hydroxide (Milk Of Magnesia 30 Ml Oral.Susp) 30 ml PO DAILY PRN PRN Reason: Constipation Last Admin: 10/21/24 10:05 Dose: 30 ml Melatonin (Melatonin 3 Mg Tablet) 6 mg PO BEDTIME [facility] Last Admin: 10/28/24 20:38 Dose: 6 mg Metoprolol Succinate (Metoprolol Succinate Er 50 Mg Tab.Er.24h) 50 mg PO DAILY [facility]; Protocol Last Admin: 10/29/24 07:53 Dose: 50 mg Nicotine Polacrilex (Nicotine Polacrilex 2 Mg Gum) 4 mg BUCCAL Q2H PRN PRN Reason: Nicotine Cravings Olanzapine (Olanzapine 2.5 Mg Tablet) 2.5 mg PO BID PRN PRN Reason: agitation Last Admin: 10/16/24 22:11 Dose: 2.5 mg Omeprazole (Omeprazole 20 Mg Capsule.Dr) 20 mg PO DAILY@0700 [facility] Last Admin: 10/29/24 06:02 Dose: 20 mg Polyethylene Glycol (Polyethylene Glycol 3350 17 Gm Powd.Pack) 17 gm PO DAILY PRN PRN Reason: Constipation Last Admin: 10/25/24 10:13 Dose: 17 gm Trazodone HCl (Trazodone Hcl 25 Mg Halftab) 25 mg PO BEDTIME MRX1 PRN PRN Reason: Insomnia Last Admin: 10/21/24 23:50 Dose: 25 mg Allergies Allergies Allergy/AdvReac Type Severity Reaction Status Date / Time No Known Allergies Allergy Verified 10/17/24 20:57 Assessment & Plan Assessment & Plan (1) Schizoaffective disorder: Status: Acute Code(s): F25.9 - Schizoaffective disorder, unspecified Plan Mrs. Aldana is a 89 year-old woman who according to her daughter has a long hx of paranoid delusions and psychiatric history but they can't tell what dx she has been given. Daughter denies s/s consistent with lana or hypomania. Working dx is schizoaffective disorder. Pt apparently does not take medications consistently once discharge and rapidly decompensates. We discussed risks, benefits and alternative treatment options, restart risperidone 0.5mg po BID. 10/12 continue risperidone 0.5mg po BID, continues to present as paranoid. 10/13 continue tx. 10/14 monitor BP, encourage increase fluid intake. 10/15 BP low, help losartan. less paranoia but still on and off. will order hospitalist consult for leg pain 10/16 continue tx. continue tx. continue to monitor BP as it's been lowered suspect as consequence of addition of risperidone. consult to hospitalist for leg pain. 10/17: increase HS risperidone to 1 mg for ongoing psychosis, otherwise continue current mgmt. LE doppler pending. 10/18 continue tx. BP stable and tolerating medications. 10/19/2024 Continue plan of care monitor blood pressure monitor psychosis 10/20/2024 Continue plan of care discharge planning 10/21 continue current plan, ordered consult for hospitalist right side flank pain. 10/22 continue tx. 10/23 given ongoing paranoid delusions, will try a different antipsychotic, prolixin 2.5mg po BID. d/c risperidone as higher doses will cause increased ortho hotn which she was experiencing with lower doses. 10/24 continue tx. 10/25 continue tx. 10/26: Continue current management and treatment plan. 10/27: Continue current management and treatment plan. 10/28 continue tx. seems less voices. 10/29 continue tx. will give prolixin dec 6.25mg IM [id number] Reason for continued inpatient stay Substantial Risk for: inability to function Time Spent With Patient Time: Total time managing care of this patient today ____ minutes.
[2024-10-29 12:27] LABS: B Type Natriuretic Peptide 102 pg/mL (<100)
[2024-10-29] MEDS: fluPHENAZine decanoate 25 MG/ML 5 ML VIAL 6.25 MG IM (12:46)
--- NOTE | 2024-10-29 18:41 | PM.EVENT ---
Event Note Date of Service: 10/29/24 Event Note: Patient seen and evaluated. The patient has been reporting orthopnea per psychiatrist. He denies any shortness of breath otherwise and denies any dyspnea with exertion. No increase in edema. No medical history noting congestive heart failure but is taking Bumex and has been compliant with this. Chest x-ray obtained shows no evidence of edema or effusions. There is no JVD noted on exam. BNP is essentially normal. Her lungs are clear to auscultation bilaterally. No significant edema on exam. No evidence of volume overload or any wheezing or rhonchi. Vital signs have been stable. No hypoxia. Discussed with nursing staff who report the patient has been having hallucinations of people hiding under her bed. Suspect sob while laying could be anxiety related. Can continue elevating bed, but no evidence of any cadiopulmonary abnormality that could be contributing to patient's symptoms. Time Spent With Patient Time: Total time managing care of this patient today ____ minutes.
[2024-10-29 20:00] VITALS: BP 115/57; PULSE 59; RESP 16; TEMP 36.6; O2SAT 98
[2024-10-29] MEDS: Melatonin 3 MG TABLET 6 MG PO (20:17)
[2024-10-30] MEDS: Omeprazole 20 MG CAPSULE.DR PO (06:29)
[2024-10-30 08:05] VITALS: BP 163/79; PULSE 65; PULSE 93; RESP 16; TEMP 36.6; O2SAT 93
[2024-10-30] MEDS: Metoprolol Succinate ER 50 MG TAB.ER.24H PO (08:05)
[2024-10-30] MEDS: Bumetanide 1 MG TABLET 2 MG PO (08:05)
[2024-10-30] MEDS: fluPHENAZine HCl 2.5 MG TABLET PO (08:05)
[2024-10-30 08:06] VITALS: BP 163/79
[2024-10-30] MEDS: Losartan Potassium 50 MG TABLET PO (08:06)
[2024-10-30] MEDS: clonazePAM ODT 0.125 MG TAB.RAPDIS 0.25 MG PO (11:34)
[2024-10-30 20:00] VITALS: BP 134/63; PULSE 62; RESP 16; TEMP 36.3; O2SAT 97
[2024-10-30] MEDS: Melatonin 3 MG TABLET 6 MG PO (20:30)
[2024-10-30] MEDS: traZODone HCL 50 MG TABLET PO (20:31)
[2024-10-31] MEDS: Omeprazole 20 MG CAPSULE.DR PO (06:17)
[2024-10-31 08:30] VITALS: BP 139/62; PULSE 67; RESP 18; TEMP 36.5; O2SAT 96
[2024-10-31] MEDS: Metoprolol Succinate ER 50 MG TAB.ER.24H PO (08:32)
[2024-10-31] MEDS: Losartan Potassium 50 MG TABLET PO (08:33)
[2024-10-31] MEDS: Bumetanide 1 MG TABLET 2 MG PO (08:33)
--- NOTE | 2024-10-31 11:36 | HO.PSYCHPN ---
Subjective Subjective Date of Service: 10/30/24 Reason For Visit: delusional d/o Subjective Notes: Conditional Voluntary Interim History: Pt reports sleeping better but it does take some time for her to fall asleep. She reports she is not hearing the voices as much. She denies SI/HI. No behavioral concerns. She had reported some anxiety given one time clonazepam 0.25mg. She slept after. stop oral prolixin. continue prolixin decanoate. Diagnostics Vital Signs (24Hr): Vital Signs - 24 hr 10/30/24 20:00 10/31/24 08:30 Temperature 97.4 F 97.7 F Pulse Rate 62 67 Respiratory Rate 16 18 Blood Pressure 134/63 139/62 Pulse Oximetry 97 96 Oxygen Delivery Method Room Air BMI result Body Mass Index 28.9 Labs 10/21/24 12:21 10/23/24 10:54 Labs: Laboratory Results - last 48 hr 10/29/24 11:44 B-Natriuretic Peptide 102 H Imaging Radiology Impressions: ITS Impressions Knee X-Ray 10/16/24 12:50 IMPRESSION: 1. Small joint effusion. Probable 3 mm loose body. 2. 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 Electronically signed by: Seun Robles MD 10/16/2024 01:12 PM EDT Arterial/Peripheral Duplex 10/17/24 16:48 IMPRESSION: 1. Normal right leg ankle brachial index. The left cannot be calculated as segmental BP of the DP is greater than 200 systolic. 2. Scattered mild calcified atherosclerotic disease is present. There is likely mild arterial vascular disease in the left greater than right lower extremities. 3. Biphasic waveforms in the left POMOLOGY TEACHER, suggesting possible more proximal disease. 4. No criteria for flow-limiting stenosis identified in either lower extremity. See above for details. Electronically signed by: Sriram Calloway MD 10/18/2024 09:52 AM EDT Abdomen/Pelvis CT 10/21/24 14:58 IMPRESSION: 1. No evidence of nephrolithiasis or ureteral obstruction. 2. Small hiatal hernia. Small fat-containing umbilical hernia. Electronically signed by: Seun Robles MD 10/21/2024 03:42 PM EDT Chest X-Ray 10/29/24 11:55 IMPRESSION: No acute airspace disease. Electronically signed by: Ignacio Rodriguez MD 10/29/2024 12:22 PM EDT Medications Medications Current Medications Acetaminophen (Acetaminophen 325 Mg Tablet) 650 mg PO Q6H PRN PRN Reason: Headache/Pain, Scale 1-10 Last Admin: 10/25/24 10:13 Dose: 650 mg Al Hydroxide/Mg Hydroxide (Magnesium Hydrox/Alum Hydrox 30 Ml Oral.Susp) 30 ml PO Q6H PRN PRN Reason: Heartburn/Nausea Last Admin: 10/16/24 10:20 Dose: 30 ml Bumetanide (Bumetanide 1 Mg Tablet) 2 mg PO DAILY [facility]; Protocol Last Admin: 10/31/24 08:33 Dose: 2 mg Fluphenazine Decanoate (Fluphenazine Decanoate 25 Mg/Ml 5 Ml Vial) 6.25 mg IM Q14D@0900 [facility] Last Admin: 10/29/24 12:46 Dose: 6.25 mg Losartan Potassium (Losartan Potassium 50 Mg Tablet) 50 mg PO DAILY [facility]; Protocol Last Admin: 10/31/24 08:33 Dose: 50 mg Magnesium Hydroxide (Milk Of Magnesia 30 Ml Oral.Susp) 30 ml PO DAILY PRN PRN Reason: Constipation Last Admin: 10/21/24 10:05 Dose: 30 ml Melatonin (Melatonin 3 Mg Tablet) 6 mg PO BEDTIME [facility] Last Admin: 10/30/24 20:30 Dose: 6 mg Metoprolol Succinate (Metoprolol Succinate Er 50 Mg Tab.Er.24h) 50 mg PO DAILY [facility]; Protocol Last Admin: 10/31/24 08:32 Dose: 50 mg Nicotine Polacrilex (Nicotine Polacrilex 2 Mg Gum) 4 mg BUCCAL Q2H PRN PRN Reason: Nicotine Cravings Olanzapine (Olanzapine 2.5 Mg Tablet) 2.5 mg PO BID PRN PRN Reason: agitation Last Admin: 10/16/24 22:11 Dose: 2.5 mg Omeprazole (Omeprazole 20 Mg Capsule.Dr) 20 mg PO DAILY@0700 [facility] Last Admin: 10/31/24 06:17 Dose: 20 mg Polyethylene Glycol (Polyethylene Glycol 3350 17 Gm Powd.Pack) 17 gm PO DAILY PRN PRN Reason: Constipation Last Admin: 10/25/24 10:13 Dose: 17 gm Trazodone HCl (Trazodone Hcl 50 Mg Tablet) 50 mg PO BEDTIME [facility] Last Admin: 10/30/24 20:31 Dose: 50 mg Allergies Allergies Allergy/AdvReac Type Severity Reaction Status Date / Time No Known Allergies Allergy Verified 10/17/24 20:57 Assessment & Plan Assessment & Plan (1) Schizoaffective disorder: Status: Acute Code(s): F25.9 - Schizoaffective disorder, unspecified Plan Mrs. Aldana is a 89 year-old woman who according to her daughter has a long hx of paranoid delusions and psychiatric history but they can't tell what dx she has been given. Daughter denies s/s consistent with lana or hypomania. Working dx is schizoaffective disorder. Pt apparently does not take medications consistently once discharge and rapidly decompensates. We discussed risks, benefits and alternative treatment options, restart risperidone 0.5mg po BID. 10/12 continue risperidone 0.5mg po BID, continues to present as paranoid. 10/13 continue tx. 10/14 monitor BP, encourage increase fluid intake. 10/15 BP low, help losartan. less paranoia but still on and off. will order hospitalist consult for leg pain 10/16 continue tx. continue tx. continue to monitor BP as it's been lowered suspect as consequence of addition of risperidone. consult to hospitalist for leg pain. 10/17: increase HS risperidone to 1 mg for ongoing psychosis, otherwise continue current mgmt. LE doppler pending. 10/18 continue tx. BP stable and tolerating medications. 10/19/2024 Continue plan of care monitor blood pressure monitor psychosis 10/20/2024 Continue plan of care discharge planning 10/21 continue current plan, ordered consult for hospitalist right side flank pain. 10/22 continue tx. 10/23 given ongoing paranoid delusions, will try a different antipsychotic, prolixin 2.5mg po BID. d/c risperidone as higher doses will cause increased ortho hotn which she was experiencing with lower doses. 10/24 continue tx. 10/25 continue tx. 10/26: Continue current management and treatment plan. 10/27: Continue current management and treatment plan. 10/28 continue tx. seems less voices. 10/29 continue tx. will give prolixin dec 6.25mg IM [id number] 10/30 continue tx. d/c oral prolixin. Reason for continued inpatient stay Substantial Risk for: inability to function Time Spent With Patient Time: Total time managing care of this patient today ____ minutes.
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
[2024-10-31] MEDS: OLANZapine 2.5 MG TABLET PO (13:32)
--- NOTE | 2024-11-01 16:02 | PM.EVENT ---
Documented by User: Little Parr NP 11/01/24 16:06 Event Note Date of Service: 11/01/24 Event Note: Received phone call from daughter Gilda, , reporting pt had difficulty walking, and talking. Pt was discharged from on 10/31/24 with no s/s of difficulty talking nor walking. Advised daughter to bring Dagmar to ED for further evaluation. among possibilities, pt may be experiencing EPS, from parkinsonism to dystonic react. explained to daughter potential complication of airway. Daughter initially hesitant to go to ED, did agree to do so. I did sent RX for cogentin 0.5mg po BID to [facility] in [facility] in [place] Time Spent With Patient Time: Total time managing care of this patient today ____ minutes. Documented by User: Wayne Moore MD 11/03/24 20:07 Event Note Date of Service: 11/03/24
== END 2024-10-31 13:34 | disposition home or self-care (01) | DRG 885 ==
PROVIDERS: Physician Assistant; Psychiatry & Neurology Psychiatry; Admitting Provider Social Worker; Visit Provider Social Worker
DX: F25.9 Schizoaffective disorder, unspecified (principal); I10 Essential (primary) hypertension; Z79.899 Other long term (current) drug therapy
CPT/HCPCS: 36415; 71045; 73562; 74176; 80048; 80053; 80061; 80076; 81001; 83036; 83880; 85025; 87086; 93005; 93922; 93925; 93970; J2680

== ENCOUNTER 2024-10-10 18:01 | Outpatient (BNV) | payer MEDICARE, MEDICAID, SELFPAY | END 2024-10-29 11:55 | PROVIDERS: Admitting Provider Social Worker; Visit Provider Radiology Diagnostic Radiology | DX: I70.0 Atherosclerosis of aorta (principal); Q25.46 Tortuous aortic arch | CPT/HCPCS: 71045 ==

== ENCOUNTER 2024-10-10 18:01 | Outpatient (BNV) | payer MEDICARE, MEDICAID, SELFPAY | END 2024-10-17 07:00 | PROVIDERS: Admitting Provider Social Worker; Visit Provider Radiology Diagnostic Radiology | DX: M79.661 Pain in right lower leg (principal); M79.662 Pain in left lower leg | CPT/HCPCS: 93922; 93925 ==

== ENCOUNTER 2024-10-10 18:01 | Outpatient (BNV) | payer MEDICARE, MEDICAID, SELFPAY | END 2024-10-16 12:50 | PROVIDERS: Admitting Provider Social Worker; Visit Provider Radiology Diagnostic Radiology | DX: M79.661 Pain in right lower leg (principal); M79.662 Pain in left lower leg; R22.43 Localized swelling, mass and lump, lower limb, bilateral; M25.461 Effusion, right knee; M17.11 Unilateral primary osteoarthritis, right knee | CPT/HCPCS: 73562 ==

== ENCOUNTER 2024-10-10 18:01 | Outpatient (BNV) | payer MEDICARE, MEDICAID, SELFPAY | END 2024-10-29 12:24 | PROVIDERS: Admitting Provider Social Worker; Visit Provider Internal Medicine Cardiovascular Disease | DX: R00.1 Bradycardia, unspecified (principal) | CPT/HCPCS: 93010 ==

== ENCOUNTER 2024-10-10 18:01 | Outpatient (BNV) | payer MEDICARE, MEDICAID, SELFPAY | END 2024-10-21 14:58 | PROVIDERS: Admitting Provider Social Worker; Visit Provider Radiology Diagnostic Radiology | DX: K44.9 Diaphragmatic hernia without obstruction or gangrene (principal); K42.9 Umbilical hernia without obstruction or gangrene | CPT/HCPCS: 74176 ==

== ENCOUNTER → 2024-10-10 18:01 | Outpatient (BNV) | payer MEDICARE, MEDICAID, SELFPAY | PROVIDERS: Admitting Provider Social Worker; Visit Provider Psychiatry & Neurology Psychiatry | DX: F25.9 Schizoaffective disorder, unspecified (principal) | CPT/HCPCS: 99231 ==

== ENCOUNTER → 2024-10-10 18:01 | Outpatient (BNV) | payer MEDICARE, MEDICAID, SELFPAY | PROVIDERS: Admitting Provider Social Worker; Visit Provider Student in an Organized Health Care Education/Training Program | DX: R10.9 Unspecified abdominal pain (principal) | CPT/HCPCS: 99222; 99499 ==

== ENCOUNTER → 2024-10-10 18:01 | Outpatient (BNV) | payer MEDICARE, MEDICAID, SELFPAY | PROVIDERS: Admitting Provider Social Worker; Visit Provider Social Worker | DX: F25.9 Schizoaffective disorder, unspecified (principal) | CPT/HCPCS: 90792; 99231; 99232 ==